=== PATIENT | female | born 1945 | race Caucasian/White ===

== ENCOUNTER 2016-04-03 08:54 | Day surgery (SDC) | payer MEDICARE, OTHER ==
[2016-04-03] MEDS ORDERED: LACTATED RINGERS 1,000 ML IV ONE (09:36)
[2016-04-03] MEDS ORDERED: BUPIVACAINE 0.25% PF 30 ML VIAL SUBQ ONE (10:30)
[2016-04-03] MEDS ORDERED: LIDOCAINE 1%-EPI 1:100000 20 ML MDV SUBQ ONE (10:31)
[2016-04-03] MEDS ORDERED: methylPREDNISolone ACETATE 80 MG/ML VIAL IM ONE (10:32)
[2016-04-03] MEDS ORDERED: MIDAZOLAM 2 MG/2 ML VIAL IVP ONE (10:35)
[2016-04-03] MEDS ORDERED: PROPOFOL 200 MG/20 ML VIAL IVP ONE (10:35)
[2016-04-03] MEDS ORDERED: LIDOCAINE-MPF 2% 5 ML VIAL IM ONE (10:35)
== END 2016-04-03 08:55 | disposition home or self-care (01) ==
PROC: 3E0U33Z Introduction of Anti-inflammatory into Joints, Percutaneous Approach (ICD-10-PCS; 2016-04-03)
PROC: 3E0U3BZ Introduction of Anesthetic Agent into Joints, Percutaneous Approach (ICD-10-PCS; 2016-04-03)
PROC: 01N50ZZ Release Median Nerve, Open Approach (ICD-10-PCS; principal; 2016-04-03 10:00)
DX: G56.02 Carpal tunnel syndrome, left upper limb (principal); M19.132 Post-traumatic osteoarthritis, left wrist; S62.102S Fracture of unspecified carpal bone, left wrist, sequela; X58.XXXS Exposure to other specified factors, sequela; F17.200 Nicotine dependence, unspecified, uncomplicated; J44.9 Chronic obstructive pulmonary disease, unspecified; I10 Essential (primary) hypertension
CPT/HCPCS: 20605; 64721; J7120

== ENCOUNTER 2016-12-17 08:00 | Outpatient (CLI) | payer MEDICARE, OTHER | END 2016-12-17 08:01 | disposition home or self-care (01) | LOC: LAB.WCP 08:00 | PROVIDERS: ATTEND Family Medicine | DX: M79.674 Pain in right toe(s) (principal) | CPT/HCPCS: 87070; 87205 ==

== ENCOUNTER 2016-12-20 15:21 | Outpatient (CLI) | payer MEDICARE, OTHER ==
[2016-12-20 13:17] LABS: BASOPHILS # (AUTO) 0.1 10^3/uL (0.0-0.1); BASOPHILS % (AUTO) 0.9 %; EOSINOPHILS # (AUTO) 0.3 10^3/uL (0.0-0.7); EOSINOPHILS % (AUTO) 3.9 %; HCT - HEMATOCRIT 45.8 % (37.0-47.0); HGB - HEMOGLOBIN 15.3 g/dL (12.0-16.0); LYMPHOCYTES % (AUTO) 29.2 %; MEAN CORPUSCULAR HEMOGLOBIN 30.3 pg (27.0-31.0); MEAN CORPUSCULAR HGB CONC 33.5 g/dL (32.0-36.0); MEAN CORPUSCULAR VOLUME 90.3 fL (81.0-99.0); MEAN PLATELET VOLUME 8.3 fL (7.9-10.8); MONOCYTES # (AUTO) 0.4 10^3/uL (0.0-1.0); MONOCYTES % (AUTO) 5.9 %; NEUTROPHILS # (AUTO) 4.2 10^3/uL (1.5-6.6); NEUTROPHILS % (AUTO) 60.1 %; NUCLEATED RED BLOOD CELLS AUTO 0.1 /100WBC; RED BLOOD COUNT 5.07 10^6/uL (4.20-5.40); RED CELL DISTRIBUTION WIDTH 14.5 % (12.0-15.0)
[2016-12-20 20:11] LABS: ALBUMIN/GLOBULIN RATIO 1.1 (1.0-2.2); BILIRUBIN,TOTAL 0.4 mg/dL (0.2-1.0); CALCIUM 9.3 mg/dL (8.5-10.3); POTASSIUM 4.6 mmol/L (3.5-5.0); TOTAL PROTEIN 7.7 g/dL (6.7-8.2)
== END 2016-12-20 15:22 | disposition home or self-care (01) ==
LOC: LAB.WCP 15:21
PROVIDERS: ATTEND Family Medicine
DX: E87.1 Hypo-osmolality and hyponatremia (principal); I10 Essential (primary) hypertension
CPT/HCPCS: 36415; 80053; 85025

== ENCOUNTER → 2016-12-28 | Outpatient (CLI) | payer MEDICARE, OTHER | LOC: LAB.WCP 09:30 | PROVIDERS: ATTEND Family Medicine | DX: A49.02 Methicillin resistant Staphylococcus aureus infection, unspecified site (principal); M79.674 Pain in right toe(s) | CPT/HCPCS: 87081 ==

== ENCOUNTER 2017-09-24 10:30 | Outpatient (CLI) | payer MEDICARE, OTHER | END 2017-09-24 10:31 | disposition home or self-care (01) | LOC: LAB.WCP 10:30 | PROVIDERS: ATTEND Family Medicine | DX: R04.2 Hemoptysis (principal) | CPT/HCPCS: 81599; 87070; 87205 ==

== ENCOUNTER 2017-09-25 10:46 | Outpatient (CLI) | payer MEDICARE, OTHER ==
[2017-09-25] MEDS ORDERED: IOPAMIDOL-300 100 ML VIAL ONE (11:08)
[2017-09-25] MEDS ORDERED: IOPAMIDOL-300 100 ML VIAL IVP ONE (11:30)
--- NOTE | 2017-09-25 15:28 | CT Report ---
Procedure Date: 09/25/2017 Accession Number: [id number] / [id number] Procedure: CT - Chest W/ CPT Code: FULL RESULT: EXAM: Chest W/ DATE: 09/25/2017 11:44 AM CLINICAL HISTORY: HEMOPTYSIS COMPARISON: None. TECHNIQUE: Routine helical CT imaging was performed through the chest. IV contrast: 80 mL Isovue 300 Reconstructions: Coronal and sagittal. In accordance with CT protocol optimization, one or more of the following dose reduction techniques were utilized for this exam: automated exposure control, adjustment of mA and/or KV based on patient size, or use of iterative reconstructive technique. FINDINGS: Lungs/Pleura: Lungs demonstrate advanced bilateral emphysematous changes. In the right lower lobe there is a 1.9 x 1.7 x 2.2 cm suspicious lung nodule with a component of arterial phase enhancement concerning for vascular involvement. There is no pleural effusion. Mediastinum: Prominent subcarinal and aortopulmonary window lymph nodes which do not meet pathologic size criteria. Coronary calcification. Cardiac chambers are within normal limits. Bones: Unremarkable. Visualized Abdomen: Unremarkable. Other: None. IMPRESSION: A partially vascular lung nodule in the right lower lobe with surrounding advanced emphysematous changes is suspicious for malignancy. This finding is likely related to the hemoptysis. Surgical referral is recommended. If the patient is not a candidate for resection or prior definitive tissue diagnosis is desired, consideration should be given to potential same time availability of bronchial artery embolization given high procedural risk for bleeding and pneumothorax in this lesion. RADIA
== END 2017-09-25 10:47 | disposition home or self-care (01) ==
LOC: DI 10:46
PROVIDERS: ATTEND Family Medicine
DX: R91.1 Solitary pulmonary nodule (principal); J43.9 Emphysema, unspecified
CPT/HCPCS: 71260; Q9967

== ENCOUNTER 2017-10-26 09:15 | Outpatient (CLI) | payer MEDICARE, OTHER ==
[2017-10-26] MEDS ORDERED: ALBUTEROL NEB 2.5 MG/3 ML INH ONE (09:30)
== END 2017-10-26 09:16 | disposition home or self-care (01) ==
LOC: RT 09:15
PROVIDERS: ATTEND Surgery
DX: R91.1 Solitary pulmonary nodule (principal); J43.1 Panlobular emphysema
CPT/HCPCS: 94060; 94729

== ENCOUNTER 2017-12-25 13:11 | Day surgery (SDC) | payer MEDICARE, OTHER ==
--- NOTE | 2017-12-25 13:23 | ANESTHESIA ---
Pre-Anesthesia VS, & Labs - Is Patient ?: No <Tyrese Peralta - Last Filed: 12/25/17 14:06> - NPO >8 hours - Is Patient ?: No <Annemarie Anthony - Last Filed: 12/25/17 15:01> - Diagnosis dysphagia, globus, GERD (Tyrese Peralta) dysphagia, globus, GERD (Annemarie Anthony) - Procedure EGD (Tyrese Peralta) EGD (Annemarie Anthony) Vital Signs: Temp Pulse Resp BP Pulse Ox 36.8 C 79 18 155/73 H 91 L 12/25/17 13:42 12/25/17 13:42 12/25/17 13:42 12/25/17 13:42 12/25/17 13:42 Height 5 ft 3 in Weight (kg) 74 kg Body Mass Index 26.6 Home Medications and Allergies <Tyrese Peralta - Last Filed: 12/25/17 14:06> <Annemarie Anthony - Last Filed: 12/25/17 15:01> Home Medications: Ambulatory Orders Omeprazole Magnesium [Prilosec] 10 mg PO DAILY 12/24/17 Umeclidinium [place] [Incruse Ellipta] 1 puffs PO DAILY 12/24/17 Omeprazole Magnesium [Prilosec] 10 mg PO DAILY 12/24/17 Umeclidinium [place] [Incruse Ellipta] 1 puffs PO DAILY 12/24/17 Allergies/Adverse Reactions: Allergies Allergy/AdvReac Type Severity Reaction Status Date / Time celecoxib [From Celebrex] AdvReac Severe Nausea Verified 05/09/15 03:24 felodipine AdvReac Severe Jittery Verified 05/09/15 03:24 [place] Allergy Severe Anaphylaxis Uncoded 05/09/15 03:24 Antihistamines AdvReac Severe Jittery Uncoded 05/09/15 03:24 Anes History & Medical History - Medical History Cardiovascular: reports: Hypertension Pulmonary: reports: COPD Gastrointestinal: reports: None, GERD Urinary: reports: Incontinence Musculoskeletal: reports: Osteoarthritis Endocrine/Autoimmune: reports: None Blood Disorders: reports: None Skin: reports: None Smoking Status: Current every day smoker - Surgical History General: Appendectomy Eyes Ears Nose Throat (EENT): Tonsil/Adenoidectomy Gynecologic: section, Hysterectomy Orthopedic: Shoulder arthroplasty <Tyrese Peralta P - Last Filed: 12/25/17 14:06> - Anesthetic History Anesthesia Complications: reports: No previous complications <Annemarie Anthony E - Last Filed: 12/25/17 15:01> Exam General: Alert Dental: Dentures full Upper, Dentures full Lower Mouth Opening: Greater than 4 Fingerbreadths Mallampati classification: II Respiratory: Rhonchi (clears with cough) Cardiovascular: Regular rate, Normal S1, Normal S2 Mental/Cognitive Status: Alert/Oriented X3 <Annemarie Anthony E - Last Filed: 12/25/17 15:01> Plan Anesthesia Type: MAC Consent for Procedure(s) Verified and Reviewed: No Code Status: Attempt Resuscitation ASA classification: 3-Severe systemic disease Is this case an emergency?: No <Annemarie Anthony E - Last Filed: 12/25/17 15:01>
[2017-12-25] MEDS ORDERED: LACTATED RINGERS 1,000 ML IV ONE (13:41)
[2017-12-25 16:30] VITALS: BP 134/76
== END 2017-12-25 13:12 | disposition home or self-care (01) ==
LOC: SDS 13:11
PROVIDERS: ATTEND Internal Medicine
PROC: 0DJ08ZZ Inspection of Upper Intestinal Tract, Via Natural or Artificial Opening Endoscopic (ICD-10-PCS; principal; 2017-12-25 14:30)
DX: R13.14 Dysphagia, pharyngoesophageal phase (principal); K29.70 Gastritis, unspecified, without bleeding; K21.9 Gastro-esophageal reflux disease without esophagitis; I10 Essential (primary) hypertension; J44.9 Chronic obstructive pulmonary disease, unspecified; F17.200 Nicotine dependence, unspecified, uncomplicated; K22.8 Other specified diseases of esophagus; Z79.899 Other long term (current) drug therapy
CPT/HCPCS: 43235; J7120

== ENCOUNTER 2019-01-02 08:00 | Outpatient (CLI) | payer MEDICARE, OTHER ==
[2019-01-02 12:16] LABS: BASOPHILS # (AUTO) 0.1 10^3/uL (0.0-0.1); BASOPHILS % (AUTO) 0.7 %; EOSINOPHILS # (AUTO) 0.3 10^3/uL (0.0-0.7); EOSINOPHILS % (AUTO) 3.4 %; HGB - HEMOGLOBIN 15.1 g/dL (12.0-16.0); LYMPHOCYTES # (AUTO) 2.1 10^3/uL (1.5-3.5); LYMPHOCYTES % (AUTO) 27.9 %; MEAN CORPUSCULAR HEMOGLOBIN 28.9 pg (27.0-31.0); MEAN CORPUSCULAR HGB CONC 31.2 g/dL (32.0-36.0); MEAN CORPUSCULAR VOLUME 92.5 fL (81.0-99.0); MEAN PLATELET VOLUME 9.9 fL (7.9-10.8); MONOCYTES # (AUTO) 0.4 10^3/uL (0.0-1.0); MONOCYTES % (AUTO) 5.7 %; NEUTROPHILS # (AUTO) 4.6 10^3/uL (1.5-6.6); PLT - PLATELET COUNT 375 10^3/uL (130-450); RED BLOOD COUNT 5.23 10^6/uL (4.20-5.40); WHITE BLOOD COUNT 7.4 x10^3/uL (4.8-10.8)
[2019-01-02 12:25] LABS: ALBUMIN 4.1 g/dL (3.2-5.5); BILIRUBIN,TOTAL 0.8 mg/dL (0.2-1.0); CALCIUM 9.7 mg/dL (8.5-10.3); CREATININE 0.9 mg/dL (0.4-1.0); TOTAL PROTEIN 8.2 g/dL (6.7-8.2)
== END 2019-01-02 23:59 | disposition home or self-care (01) ==
LOC: LAB.WCP 08:00
PROVIDERS: ATTEND Family Medicine
DX: Z72.0 Tobacco use (principal); I10 Essential (primary) hypertension
CPT/HCPCS: 36415; 80053; 85025

== ENCOUNTER 2019-06-18 20:31 | Outpatient (CLI) | payer MEDICARE, OTHER | END 2019-06-18 23:59 | disposition critical access hospital (66) | LOC: EMS 20:31 | PROVIDERS: ATTEND Surgery | DX: R10.13 Epigastric pain (principal); R11.0 Nausea | CPT/HCPCS: A0425; A0427 ==

== ENCOUNTER 2019-06-18 20:49 | Emergency (ER) | payer MEDICARE, OTHER ==
--- NOTE | 2019-06-18 20:47 | ED Physician Documentation ---
History of Present Illness - Stated complaint Stated Complaint: ABD PAIN - History obtained from History obtained from: Patient (the patient is a 73 y/o f brought in by ems for abd pain, ems gave 100 mcg of fentanyl to the patient prior to my evaluation. the patient was having epigastric pain and called 911. she has had a previous appendectomy and 3 c sections. she denies any hx of mi/stroke/pe/dvt. she does have a hx of copd but is not on oxygen. denies dysuria, diarrhea or co nstipation. had 1 episode of vomiting earlier today.) Review of Systems Ten Systems: 10 systems reviewed and negative Constitutional: reports: Reviewed and negative Eyes: reports: Reviewed and negative Ears: reports: Reviewed and negative Nose: reports: Reviewed and negative Throat: reports: Reviewed and negative Cardiac: reports: Reviewed and negative Respiratory: reports: Reviewed and negative GI: reports: Abdominal Pain : reports: Reviewed and negative Skin: reports: Reviewed and negative Musculoskeletal: reports: Reviewed and negative Neurologic: reports: Reviewed and negative Psychiatric: reports: Reviewed and negative Endocrine: reports: Reviewed and negative Immunocompromised: reports: Reviewed and negative PD PAST MEDICAL HISTORY - Present Medications Home Medications: Ambulatory Orders Medication Instructions Recorded Confirmed Omeprazole Magnesium [Prilosec] 10 mg PO DAILY 12/24/17 12/25/17 Umeclidinium [place] [Incruse 1 puffs PO DAILY 12/24/17 12/25/17 Ellipta] - Allergies Allergies/Adverse Reactions: Allergies Allergy/AdvReac Type Severity Reaction Status Date / Time celecoxib [From Celebrex] AdvReac Severe Nausea Verified 06/18/19 20:55 felodipine AdvReac Severe Jittery Verified 06/18/19 20:55 [place] Allergy Severe Anaphylaxis Uncoded 05/09/15 03:24 Antihistamines AdvReac Severe Jittery Uncoded 05/09/15 03:24 PD ED PE NORMAL - Vitals Vital signs reviewed: Yes - General General: Alert and oriented X 3, No acute distress, Well developed/nourished - HEENT HEENT: Atraumatic, PERRL, Moist mucous membranes, Pharynx benign - Neck Neck: Supple, no meningeal sign - Cardiac Cardiac: RRR, No murmur, No gallop, Strong equal pulses - Respiratory Respiratory: No respiratory distress, Clear bilaterally - Abdomen Abdomen: Soft, Non distended, Other (The abdomen soft, there is no midline abdominal pulsatile mass she has diminished bowel sounds throughout. There is no guarding, no rebounding no hepatosplenomegaly no CVA tenderness she has a positive Galarza sign negative psoas negative Rovsing's negative McBurney's point.No CVA tenderness.) - Female Female : Deferred - Rectal Rectal: Deferred - Back Back: No CVA TTP, No spinal TTP - Derm Derm: Normal color, Warm and dry, No rash - Extremities Extremities: No deformity, No tenderness to palpate, Normal ROM s pain, No edema, No calf tenderness / cord - Neuro Neuro: Alert and oriented X 3, director communications 2-12 intact, No motor deficit, No sensory deficit, Normal speech - Psych Psych: Normal mood, Normal affect Results - Vitals Vitals: Vital Signs - 24 hr 06/18/19 06/18/19 06/18/19 20:53 23:20 23:31 Temperature 36.6 C Heart Rate 70 71 70 Respiratory 17 17 Rate Blood Pressure 154/77 H O2 Saturation 92 91 L 06/19/19 00:59 Temperature 36.6 C Heart Rate 71 Respiratory 14 Rate Blood Pressure 140/71 H O2 Saturation 89 L Oxygen O2 Source [] Room air O2 Source Nasal cannula - EKG (time done) 21:13 Rate: Other (no stemi) - Labs Labs: Laboratory Tests 06/18/19 06/18/19 06/18/19 21:10 21:10 21:10 WBC RBC Hgb Hct MCV MCH MCHC RDW Plt Count MPV Neut # (Auto) Lymph # (Auto) [place] # (Auto) Eos # (Auto) Baso # (Auto) Absolute Nucleated RBC Nucleated RBC % PT 12.3 INR 1.1 APTT 35.0 H Sodium Potassium Chloride Carbon Dioxide Anion Gap BUN Creatinine Estimated GFR (MDRD) Glucose Lactic Acid Calcium Total Bilirubin Direct Bilirubin AST ALT Alkaline Phosphatase Total Creatine Kinase Troponin I High Sens 4.6 B-Natriuretic Peptide 70 Total Protein Albumin Globulin Lipase Urine Color Urine Clarity Urine pH Ur Specific [place] Urine Protein Urine Glucose (UA) Urine Ketones Urine Occult Blood Urine Nitrite Urine Bilirubin Urine Urobilinogen Ur Leukocyte Esterase Ur Microscopic Review Urine Culture Comments 06/18/19 06/18/19 06/18/19 21:10 21:18 21:18 WBC 11.9 H RBC 5.00 Hgb 15.1 Hct 45.9 MCV 91.8 MCH 30.2 MCHC 32.9 RDW 14.1 Plt Count 310 MPV 9.4 Neut # (Auto) 9.3 H Lymph # (Auto) 1.6 [place] # (Auto) 0.5 Eos # (Auto) 0.3 Baso # (Auto) 0.1 Absolute Nucleated RBC 0.00 Nucleated RBC % 0.0 PT INR APTT Sodium 133 L Potassium 3.8 Chloride 100 L Carbon Dioxide 23 Anion Gap 10.0 BUN 22 H Creatinine 0.7 Estimated GFR (MDRD) 82 L Glucose 125 H Lactic Acid 0.8 Calcium 8.9 Total Bilirubin 0.4 Direct Bilirubin 0.1 AST 21 ALT 16 Alkaline Phosphatase 76 Total Creatine Kinase 78 Troponin I High Sens B-Natriuretic Peptide Total Protein 7.0 Albumin 3.7 Globulin 3.3 Lipase 33 Urine Color Urine Clarity Urine pH Ur Specific [place] Urine Protein Urine Glucose (UA) Urine Ketones Urine Occult Blood Urine Nitrite Urine Bilirubin Urine Urobilinogen Ur Leukocyte Esterase Ur Microscopic Review Urine Culture Comments 06/18/19 22:21 WBC RBC Hgb Hct MCV MCH MCHC RDW Plt Count MPV Neut # (Auto) Lymph # (Auto) [place] # (Auto) Eos # (Auto) Baso # (Auto) Absolute Nucleated RBC Nucleated RBC % PT INR APTT Sodium Potassium Chloride Carbon Dioxide Anion Gap BUN Creatinine Estimated GFR (MDRD) Glucose Lactic Acid Calcium Total Bilirubin Direct Bilirubin AST ALT Alkaline Phosphatase Total Creatine Kinase Troponin I High Sens B-Natriuretic Peptide Total Protein Albumin Globulin Lipase Urine Color YELLOW Urine Clarity CLEAR Urine pH 7.5 Ur Specific [place] 1.010 Urine Protein NEGATIVE Urine Glucose (UA) NEGATIVE Urine Ketones NEGATIVE Urine Occult Blood NEGATIVE Urine Nitrite NEGATIVE Urine Bilirubin NEGATIVE Urine Urobilinogen 0.2 (NORMAL) Ur Leukocyte Esterase NEGATIVE Ur Microscopic Review NOT INDICATED Urine Culture Comments NOT INDICATED PD MEDICAL DECISION MAKING - ED course Complexity details: re-evaluated patient (00:57 Patient reexamined and reevaluated, she is pain-free now patient is requesting to be discharged home she does have good follow-up with her primary care provider her work-up shows cholelithiasis there is no fever no significant leukocytosis no elevatedLiver function test she is pain-free now she has good follow-up plan is to follow-up with her PCP provider today. Imaging and work-up shows cholelithiasis there is no signs of acute cystitis the patient's pain pain-free now she is afebrilePatient is requesting to be discharged home at this time she does have good follow-up today with her primary care provider.), considered differential (Cholecystitis, cholelithiasis, pancreatitis, perforated peptic ulcer, peptic ulcer disease, [place], ACS, volvulus, bowel obstruction, aneurysm) Departure - Departure Disposition: 01 Home, Self Care Clinical Impression: Cholelithiasis Qualifiers: Cholelithiasis location: other site Biliary obstruction: without biliary obstruction Qualified Code(s): K80.80 - Other cholelithiasis without obstruction COPD (chronic obstructive pulmonary disease) Qualifiers: COPD type: unspecified COPD Qualified Code(s): J44.9 - Chronic obstructive pulmonary disease, unspecified Condition: Stable Instructions: Gallstones Follow-Up: Bradley Ferrari MD [Primary Care Provider] - 06/19/19 Comments: call your pcp today to schedule a follow up. Discharge Date/Time: 06/19/19 01:15
[2019-06-18] MEDS ORDERED: IOVERSOL 320 100 ML VIAL IVP ONE (21:14)
[2019-06-18] MEDS: SODIUM CHLORIDE 0.9% 1,000 ML IV ONE (21:22)
[2019-06-18 21:24] LABS: BASOPHILS # (AUTO) 0.1 10^3/uL (0.0-0.1); BASOPHILS % (AUTO) 0.6 %; EOSINOPHILS # (AUTO) 0.3 10^3/uL (0.0-0.7); EOSINOPHILS % (AUTO) 2.4 %; HGB - HEMOGLOBIN 15.1 g/dL (12.0-16.0); LYMPHOCYTES # (AUTO) 1.6 10^3/uL (1.5-3.5); LYMPHOCYTES % (AUTO) 13.8 %; MEAN CORPUSCULAR HEMOGLOBIN 30.2 pg (27.0-31.0); MEAN CORPUSCULAR HGB CONC 32.9 g/dL (32.0-36.0); MEAN CORPUSCULAR VOLUME 91.8 fL (81.0-99.0); MEAN PLATELET VOLUME 9.4 fL (7.9-10.8); MONOCYTES # (AUTO) 0.5 10^3/uL (0.0-1.0); MONOCYTES % (AUTO) 4.3 %; NEUTROPHILS # (AUTO) 9.3 10^3/uL (1.5-6.6); NEUTROPHILS % (AUTO) 78.6 %; PLT - PLATELET COUNT 310 10^3/uL (130-450); RED CELL DISTRIBUTION WIDTH 14.1 % (12.0-15.0); WHITE BLOOD COUNT 11.9 x10^3/uL (4.8-10.8)
[2019-06-18 21:29] LABS: INR 1.1 (0.8-1.2); PT - PROTHROMBIN TIME 12.3 secs (9.9-12.6)
[2019-06-18] MEDS: ONDANSETRON 4 MG/2 ML VIAL IVP STA ×2 (21:32→23:18)
[2019-06-18 21:39] LABS: ALBUMIN 3.7 g/dL (3.2-5.5); BILIRUBIN,DIRECT 0.1 mg/dL (0.1-0.5); BILIRUBIN,TOTAL 0.4 mg/dL (0.2-1.0); CALCIUM 8.9 mg/dL (8.5-10.3); CREATININE 0.7 mg/dL (0.4-1.0)
[2019-06-18] MEDS: IOVERSOL 320 100 ML VIAL IVP ONE (22:06)
--- NOTE | 2019-06-18 22:09 | XRAY Report ---
Reason: cp Procedure Date: 06/18/2019 Accession Number: [id number] / [id number] Procedure: XR - Chest 1 View X-Ray CPT Code: 71277 Final Report FULL RESULT: EXAM: CHEST RADIOGRAPHY EXAM DATE: 06/18/2019 09:31 PM. CLINICAL HISTORY: Chest pain. COMPARISON: CHEST 2 VIEW PA/LAT 09/24/2017 9:21 AM. TECHNIQUE: 1 view. FINDINGS: Lungs/Pleura: Chronic interstitial opacities, suggestive of chronic interstitial lung disease. No focal opacities evident. No pleural effusion. No pneumothorax. Mediastinum: Within exam limitations, the cardiomediastinal contour is normal. Other: None. IMPRESSION: Chronic interstitial opacities, suggestive of chronic interstitial lung disease. Mild superimposed chronic pulmonary edema to be considered in appropriate setting. RADIA
[2019-06-18 22:37] LABS: BILIRUBIN,URINE NEGATIVE (NEGATIVE); CLARITY,URINE CLEAR (CLEAR); GLUCOSE, URINE (UA) NEGATIVE (NEGATIVE); KETONES,URINE (UA) NEGATIVE (NEGATIVE); LEUKOCYTE ESTERASE, URINE NEGATIVE (NEGATIVE); NITRITE,URINE NEGATIVE (NEGATIVE); OCCULT BLOOD,URINE NEGATIVE (NEGATIVE); PH,URINE 7.5 PH (5.0-7.5); PROTEIN,URINE NEGATIVE (NEGATIVE); UROBILINOGEN,URINE 0.2 (NORMAL) E.U./dL (NORMAL)
--- NOTE | 2019-06-18 22:57 | CT Report ---
Reason: abd pain Procedure Date: 06/18/2019 Accession Number: [id number] / [id number] Procedure: CT - Abdomen/Pelvis W CPT Code: Addended Final Report FULL RESULT: EXAM: CT ABDOMEN AND PELVIS EXAM DATE: 06/18/2019 10:07 PM. CLINICAL HISTORY: Abdomen pain. COMPARISONS: CHEST W/ 09/25/2017 11:30 AM. TECHNIQUE: Routine helical CT imaging was performed through the abdomen and pelvis. IV contrast: Yes . Enteric contrast: No . Reconstructions: Coronal and sagittal. In accordance with CT protocol optimization, one or more of the following dose reduction techniques were utilized for this exam: automated exposure control, adjustment of mA and/or KV based on patient size, or use of iterative reconstructive technique. FINDINGS: Lung Bases: Bibasilar emphysema and fibrosis. Liver: Unremarkable. No suspicious masses. Gallbladder/Bile Ducts: Distended thick-walled gallbladder with possible cystic duct stone measuring 13 mm on image 36 series 4. Minimal pericholecystic edema suspected. Spleen: Unremarkable. Pancreas: Unremarkable. Adrenal Glands: Unremarkable. Kidneys: Unremarkable. No suspicious masses or hydronephrosis. Peritoneal Cavity/Bowel: No bowel obstruction or inflammatory process seen. No free air or significant free fluid. No masses or adenopathy. The appendix is normal. No excessive stool burden. Pelvic Organs: Post hysterectomy with no adnexal masses seen. The bladder appears within normal limits. Vasculature: Severe atherosclerotic disease of the aorta and branches. 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 No aneurysm seen. Bones: No significant abnormality. Other: None. IMPRESSION: 1. Findings concerning for early cholecystitis. If clinical situation is equivocal, CT could be considered. 2. Post hysterectomy. 3. 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 4. Emphysema and pulmonary fibrosis. [facility] ADDENDUM: 06/18/19 23:19 Correction: 1. Findings concerning for early cholecystitis. If clinical situation is equivocal, ultrasound could be considered.
[2019-06-18] MEDS: MORPHINE 2 MG/ML CARPUJECT IVP STA (23:17)
--- NOTE | 2019-06-19 00:49 | Ultrasound Report ---
Reason: RUQ PAIN Procedure Date: 06/18/2019 Accession Number: [id number] / [id number] Procedure: US - Abdomen Limited CPT Code: Final Report FULL RESULT: EXAM: ABDOMEN ULTRASOUND LIMITED, RUQ EXAM DATE: 06/18/2019 11:59 PM. CLINICAL HISTORY: RUQ PAIN. COMPARISON: None. TECHNIQUE: Real-time scanning was performed with static images obtained. FINDINGS: Liver: The hepatic echotexture is coarse. Evaluation is difficult secondary to patient's body habitus. 16.7 cm. Main portal vein flow: Hepatopetal. Gallbladder: Gallbladder wall is thickened at 6 mm. Nontender. Multiple tiny mobile gallstones. Biliary System: CBD measures 7 mm. No intrahepatic or extrahepatic ductal dilatation. Other: Right kidney measures 8.9 cm in length. Prominent pancreatic duct at 4 mm. IMPRESSION: 1. Cholelithiasis. 2. Prominent pancreatic duct at 4 mm. RADIA
[2019-06-19 01:00] VITALS: BP 140/71
== END 2019-06-19 01:15 | disposition home or self-care (01) ==
LOC: EDUNIT# → ED 20:49
DX: K80.20 Calculus of gallbladder without cholecystitis without obstruction (principal); J44.9 Chronic obstructive pulmonary disease, unspecified
CPT/HCPCS: 36415; 71045; 74177; 76705; 80048; 80076; 81003; 82550; 83605; 83690; 83880; 84484; 85025; 85610; 85730; 93005; 96361; 96374; 96375; 96376; 99284; Q9967; 81001; 87086

== ENCOUNTER 2020-01-17 16:02 | Outpatient (CLI) | payer MEDICARE, OTHER | END 2020-01-17 16:03 | disposition critical access hospital (66) | LOC: EMS 16:02 | PROVIDERS: ATTEND Surgery | DX: R10.11 Right upper quadrant pain (principal); R11.0 Nausea | CPT/HCPCS: A0425; A0427 ==

== ENCOUNTER 2020-01-17 16:23 | Emergency (ER) | payer MEDICARE, OTHER ==
[2020-01-17 16:49] LABS: BASOPHILS # (AUTO) 0.1 10^3/uL (0.0-0.1); BASOPHILS % (AUTO) 0.4 %; EOSINOPHILS # (AUTO) 0.2 10^3/uL (0.0-0.7); EOSINOPHILS % (AUTO) 1.7 %; HGB - HEMOGLOBIN 14.2 g/dL (12.0-16.0); LYMPHOCYTES # (AUTO) 1.4 10^3/uL (1.5-3.5); LYMPHOCYTES % (AUTO) 12.4 %; MEAN CORPUSCULAR HEMOGLOBIN 30.3 pg (27.0-31.0); MEAN CORPUSCULAR HGB CONC 32.8 g/dL (32.0-36.0); MEAN CORPUSCULAR VOLUME 92.5 fL (81.0-99.0); MONOCYTES # (AUTO) 0.6 10^3/uL (0.0-1.0); MONOCYTES % (AUTO) 5.2 %; NEUTROPHILS % (AUTO) 79.9 %; PLT - PLATELET COUNT 321 10^3/uL (130-450); RED BLOOD COUNT 4.68 10^6/uL (4.20-5.40); RED CELL DISTRIBUTION WIDTH 13.7 % (12.0-15.0); WHITE BLOOD COUNT 11.2 x10^3/uL (4.8-10.8)
[2020-01-17 16:54] VITALS: BP 102/54
--- NOTE | 2020-01-17 17:03 | ED Physician Documentation ---
PD HPI ABD PAIN - Stated complaint Stated Complaint: ABD PX - Chief complaint Chief Complaint: Abd Pain - History obtained from History obtained from: Patient - History of Present Illness Timing - onset: Today Timing - duration: Hours (5) Timing - details: Abrupt onset Pain level max: 9 Pain level now: 3 Quality: Aching, Pain Location: RUQ Radiation: No: Chest, , Lower back, Left flank, Left shoulder, Right flank, Right shoulder, Upper back Similar symptoms before: Has not had sx before Recently seen: Not recently seen - Additional information Additional information: 74-year-old female presents to the emergency department with abdominal pain. Right upper quadrant. She states that it started after eating fried chicken today. Known history of cholelithiasis. No vomiting. No fevers. Worse with eating and drinking, nothing makes it better Review of Systems Constitutional: denies: Fever, Chills Cardiac: denies: Chest pain / pressure Respiratory: denies: Cough GI: denies: Vomiting, Diarrhea : denies: Dysuria Skin: denies: Rash PD PAST MEDICAL HISTORY - Past Medical History Past Medical History: Yes Cardiovascular: Hypertension Respiratory: COPD Neuro: None Endocrine/Autoimmune: None GI: GERD, Cholelithiasis : Incontinence HEENT: None Psych: None Musculoskeletal: Osteoarthritis Derm: None - Past Surgical History Past Surgical History: Yes General: Appendectomy Ortho: Shoulder arthroplasty /[employer]: section, Hysterectomy HEENT: Tonsil/Adenoidectomy - Present Medications Home Medications: Ambulatory Orders Medication Instructions Recorded Confirmed Omeprazole Magnesium [Prilosec] 10 mg PO DAILY 12/24/17 12/25/17 Umeclidinium [place] [Incruse 1 puffs PO DAILY 12/24/17 12/25/17 Ellipta] - Allergies Allergies/Adverse Reactions: Allergies Allergy/AdvReac Type Severity Reaction Status Date / Time celecoxib [From Celebrex] AdvReac Severe Nausea Verified 06/18/19 20:55 felodipine AdvReac Severe Jittery Verified 06/18/19 20:55 [place] Allergy Severe Anaphylaxis Uncoded 05/09/15 03:24 Antihistamines AdvReac Severe Jittery Uncoded 05/09/15 03:24 - Social History Does the pt smoke?: Yes Smoking Status: Current every day smoker Does the pt drink ETOH?: Yes Does the pt have substance abuse?: No - Immunizations Immunizations are current?: Yes - POLST Patient has POLST: No PD ED PE NORMAL - Vitals Vital signs reviewed: Yes - General General: Alert and oriented X 3, No acute distress - HEENT HEENT: Moist mucous membranes - Neck Neck: Supple, no meningeal sign - Cardiac Cardiac: RRR, Strong equal pulses - Respiratory Respiratory: No respiratory distress, Clear bilaterally - Abdomen Abdomen: Soft, Non distended, Other (TTP RUQ, + galarza's sign) - Derm Derm: Warm and dry - Neuro Neuro: Alert and oriented X 3 - Psych Psych: Normal mood, Normal affect Results - Vitals Vitals: Vital Signs - 24 hr 01/17/20 01/17/20 01/17/20 16:25 16:52 16:53 Temperature 36.5 C Heart Rate 63 62 61 Respiratory 18 14 18 Rate Blood Pressure 142/73 H 102/54 L 102/54 L O2 Saturation 93 90 L 90 L Oxygen O2 Source [Without Activity] Room air O2 Source Room air - Labs Labs: Laboratory Tests 01/17/20 01/17/20 16:40 16:40 WBC 11.2 H RBC 4.68 Hgb 14.2 Hct 43.3 MCV 92.5 MCH 30.3 MCHC 32.8 RDW 13.7 Plt Count 321 MPV 9.0 Neut # (Auto) 9.0 H Lymph # (Auto) 1.4 L [place] # (Auto) 0.6 Eos # (Auto) 0.2 Baso # (Auto) 0.1 Absolute Nucleated RBC 0.00 Nucleated RBC % 0.0 Sodium 131 L Potassium 3.8 Chloride 98 L Carbon Dioxide 22 Anion Gap 11.0 BUN 16 Creatinine 0.9 Estimated GFR (MDRD) 62 L Glucose 142 H Calcium 8.9 Total Bilirubin 1.4 H AST 109 H ALT 59 Alkaline Phosphatase 72 Total Protein 7.1 Albumin 3.9 Globulin 3.2 Albumin/Globulin Ratio 1.2 Lipase 1404 H - Rads (name of study) Right upper quadrant ultrasound Radiology: Prelim report reviewed, EMP read contemporaneously, See rad report (Cholelithiasis with mild gallbladder wall thickening of the gallbladder fundus. Negative sonographic Galarza's. Prominent common bile ducts, no choledocholithiasis. Hepatic steatosis.) PD MEDICAL DECISION MAKING - ED course Complexity details: reviewed results, re-evaluated patient, considered differential, d/w patient ED course: 74-year-old female presents to the emergency department with abdominal pain tod ay. Her symptoms fully resolved in the emergency department. No fevers. No chills. Tolerating p.o. without difficulty. Did have a mild elevation of her lipase, possible that she passed a small gallstone causing mild pancreatitis. Her abdomen is soft, nontender nondistended on serial exam. As she is currently asymptomatic and eating without difficulty, we will have her go home and follow- up with her doctor. She will return if she worsens or has recurrent symptoms. Patient counseled regarding signs and symptoms for which I believe and urgent re-evaluation would be necessary. Patient with good understanding of and agreement to plan and is comfortable going home at this time This document was made in part using voice recognition software. While efforts are made to proofread this document, sound alike and grammatical errors may occur. Departure - Departure Disposition: 01 Home, Self Care Clinical Impression: Cholelithiasis Qualifiers: Cholelithiasis location: gallbladder Cholecystitis presence: without cholecystitis Biliary obstruction: without biliary obstruction Qualified Code(s): K80.20 - Calculus of gallbladder without cholecystitis without obstruction Pancreatitis Qualifiers: Chronicity: acute Pancreatitis type: biliary Acute pancreatitis complication: no infection or necrosis Qualified Code(s): K85.10 - Biliary acute pancreatitis without necrosis or infection Condition: Good Instructions: ED Gallstone W Biliary Colic, ED Pancreatitis Follow-Up: Bradley Ferrari MD [Primary Care Provider] - Comments: Return if you worsen. Your doctor may want to refer you to a surgeon to have your gallbladder removed, you should follow a low-fat diet. As your symptoms have completely resolved, we will allow you to go home tonight. Return if your pain worsens, you develop fevers, vomiting or other new or worrisome symptoms. Discharge Date/Time: 01/17/20 18:27
[2020-01-17 17:17] LABS: ALBUMIN 3.9 g/dL (3.2-5.5); ALBUMIN/GLOBULIN RATIO 1.2 (1.0-2.2); BILIRUBIN,TOTAL 1.4 mg/dL (0.2-1.0); CALCIUM 8.9 mg/dL (8.5-10.3); CREATININE 0.9 mg/dL (0.4-1.0); TOTAL PROTEIN 7.1 g/dL (6.7-8.2)
--- NOTE | 2020-01-17 18:31 | Ultrasound Report ---
PROCEDURE: Abdomen Limited INDICATIONS: RUQ abd pain TECHNIQUE: Real-time scanning was performed of the abdominal and retroperitoneal organs, with image documentatio n. COMPARISON: None. FINDINGS: Liver: The liver demonstrates diffusely increased echotexture without focal abnormalities which is c onsistent with chronic hepatocellular disease/hepatic steatosis. Gallbladder: Multiple mobile gallstones. Gallbladder is mildly distended. Gallbladder wall is thicken ed near the fundus measuring approximately 6 mm. No pericholecystic fluid. Sonographic Galarza sign wa s not able to be elicited secondary to patient being on pain medications prior to the examination. Biliary ducts: Intrahepatic bile ducts are non-dilated. Extrahepatic bile duct caliber measures 9 m m. Normal is 6-7 mm or less in diameter, or 10 mm or less post-cholecystectomy. Pancreatic duct jose sures approximately 3 mm. Pancreas: Visualized portions of the pancreas are sonographically normal. Kidneys: Right kidney is normal in size and echotexture. Right kidney measures 9.7 cm long. No hydr onephrosis or nephrolithiasis. No solid masses. IVC: Intrahepatic inferior vena cava is patent. Miscellaneous: No free abdominal fluid. IMPRESSION: 1. Cholelithiasis with mild gallbladder wall thickening near the gallbladder fundus. Unable to elicit sonographic Galarza's at the patient was medicated for pain. Findings may represent cholecystitis. 2. Prominent common bile duct measuring 9 mm in size without evidence for choledocholithiasis. Of not e, the common bile duct was able to be followed down to the pancreatic duct. 3. Diffusely increased hepatic echotexture likely representing hepatic steatosis versus sequela of ch ronic hepatocellular disease. Reviewed by: Angelo Greenwood MD on 01/17/2020 5:[address] [facility] Approved by: Angelo Greenwood MD on 01/17/2020 5:[address] [facility] Station ID: [id number]
== END 2020-01-17 18:27 | disposition home or self-care (01) ==
LOC: EDUNIT# → ED 16:23
DX: K80.20 Calculus of gallbladder without cholecystitis without obstruction (principal); K85.10 Biliary acute pancreatitis without necrosis or infection; K76.0 Fatty (change of) liver, not elsewhere classified; K21.9 Gastro-esophageal reflux disease without esophagitis; I10 Essential (primary) hypertension; F17.200 Nicotine dependence, unspecified, uncomplicated
CPT/HCPCS: 36415; 76705; 80053; 83690; 85025; 99284

== ENCOUNTER 2020-01-27 08:00 | Outpatient (CLI) | payer MEDICARE, OTHER ==
[2020-01-27 12:09] LABS: BASOPHILS # (AUTO) 0.1 10^3/uL (0.0-0.1); BASOPHILS % (AUTO) 0.8 %; EOSINOPHILS # (AUTO) 0.1 10^3/uL (0.0-0.7); EOSINOPHILS % (AUTO) 1.8 %; HGB - HEMOGLOBIN 14.3 g/dL (12.0-16.0); LYMPHOCYTES # (AUTO) 2.1 10^3/uL (1.5-3.5); LYMPHOCYTES % (AUTO) 26.9 %; MEAN CORPUSCULAR HEMOGLOBIN 30.3 pg (27.0-31.0); MEAN CORPUSCULAR HGB CONC 32.4 g/dL (32.0-36.0); MEAN CORPUSCULAR VOLUME 93.4 fL (81.0-99.0); MEAN PLATELET VOLUME 10.1 fL (7.9-10.8); MONOCYTES # (AUTO) 0.4 10^3/uL (0.0-1.0); MONOCYTES % (AUTO) 5.4 %; NEUTROPHILS # (AUTO) 5.1 10^3/uL (1.5-6.6); NEUTROPHILS % (AUTO) 64.8 %; PLT - PLATELET COUNT 414 10^3/uL (130-450); RED BLOOD COUNT 4.72 10^6/uL (4.20-5.40); RED CELL DISTRIBUTION WIDTH 14.1 % (12.0-15.0); WHITE BLOOD COUNT 7.8 x10^3/uL (4.8-10.8)
== END 2020-01-27 23:59 | disposition home or self-care (01) ==
LOC: LAB.WCP 08:00
PROVIDERS: ATTEND Family Medicine
DX: K85.10 Biliary acute pancreatitis without necrosis or infection (principal)
CPT/HCPCS: 36415; 83690; 85025

== ENCOUNTER 2021-01-06 07:07 | Outpatient (CLI) | payer MEDICARE, OTHER ==
--- NOTE | 2021-01-13 10:50 | XRAY Report ---
PROCEDURE: Cervical Spine 2 View INDICATIONS: NECK PAIN TECHNIQUE: 3 view(s) of the cervical spine were acquired. COMPARISON: None. FINDINGS: Bones: No fractures or dislocations to the C7-T1 level. The lateral masses of C1 appear intact on t he odontoid view. No suspicious bony lesions. Spine is in flexion view with reversal of curvature w ith apex at C5. There is grade 1 anterolithesis of C3 on C4, C4 on C5. There is moderate to severe disc space narrowing at C4-5, C5-6, C6-7. Multilevel uncovertebral hypertrophy. Soft tissues: No prevertebral soft tissue swelling. IMPRESSION: Multilevel degenerative changes with exaggerated kyphosis. Reviewed by: Amy Fernández MD on 01/13/2021 10:49 AM PDT Approved by: Amy Fernández MD on 01/13/2021 10:49 AM PDT Station ID: [id number]
== END 2021-01-06 07:08 | disposition home or self-care (01) ==
LOC: DI.N 07:07
PROVIDERS: ATTEND Family Medicine
DX: M43.12 Spondylolisthesis, cervical region (principal); M89.38 Hypertrophy of bone, other site; M50.321 Other cervical disc degeneration at C4-C5 level

== ENCOUNTER 2021-02-10 07:16 | Outpatient (CLI) | payer MEDICARE, OTHER ==
[2021-02-10 13:15] LABS: BASOPHILS # (AUTO) 0.1 10^3/uL (0.0-0.1); BASOPHILS % (AUTO) 0.8 %; EOSINOPHILS # (AUTO) 0.3 10^3/uL (0.0-0.7); EOSINOPHILS % (AUTO) 4.3 %; HCT - HEMATOCRIT 45.2 % (37.0-47.0); HGB - HEMOGLOBIN 14.8 g/dL (12.0-16.0); LYMPHOCYTES % (AUTO) 25.6 %; MEAN CORPUSCULAR HEMOGLOBIN 30.6 pg (27.0-31.0); MEAN CORPUSCULAR HGB CONC 32.7 g/dL (32.0-36.0); MEAN CORPUSCULAR VOLUME 93.6 fL (81.0-99.0); MEAN PLATELET VOLUME 9.7 fL (7.9-10.8); MONOCYTES # (AUTO) 0.4 10^3/uL (0.0-1.0); MONOCYTES % (AUTO) 5.3 %; NEUTROPHILS # (AUTO) 4.9 10^3/uL (1.5-6.6); NEUTROPHILS % (AUTO) 63.6 %; PLT - PLATELET COUNT 354 10^3/uL (130-450); RED BLOOD COUNT 4.83 10^6/uL (4.20-5.40); RED CELL DISTRIBUTION WIDTH 14.1 % (12.0-15.0); WHITE BLOOD COUNT 7.7 x10^3/uL (4.8-10.8)
[2021-02-10 13:56] LABS: ALBUMIN 4.2 g/dL (3.2-5.5); ALBUMIN/GLOBULIN RATIO 1.1 (1.0-2.2); ALKALINE PHOSPHATASE 67 IU/L (42-121); ALT ALANINE AMINOTRANSFERASE 18 IU/L (10-60); AST ASPARTATE AMINOTRANSFERASE 26 IU/L (10-42); BILIRUBIN,TOTAL 0.6 mg/dL (0.2-1.0); BUN - BLOOD UREA NITROGEN 17 mg/dL (6-20); CALCIUM 9.3 mg/dL (8.5-10.3); CARBON DIOXIDE - CO2 26 mmol/L (21-32); CHLORIDE 96 mmol/L (101-111); CHOL/HDL RATIO 4.3 (<4.4); CHOLESTEROL 212 mg/dL; CREATININE 0.7 mg/dL (0.4-1.0); GFR - MDRD 82 (>89); GLUCOSE 88 mg/dL (70-100); HDL CHOLESTEROL 49 mg/dL; LDL CHOLESTEROL,CALCULATED 148 mg/dL; SODIUM 131 mmol/L (135-145); TRIGLYCERIDES 73 mg/dL; VLDL CHOLESTEROL 15 mg/dL
== END 2021-02-10 23:59 | disposition home or self-care (01) ==
LOC: LAB.WCP 07:16
PROVIDERS: ATTEND Family Medicine
DX: K75.81 Nonalcoholic steatohepatitis (NASH) (principal); E87.1 Hypo-osmolality and hyponatremia; I10 Essential (primary) hypertension
CPT/HCPCS: 36415; 80053; 80061; 83721; 84443; 85025

== ENCOUNTER 2021-02-14 09:52 | Outpatient (CLI) | payer MEDICARE, OTHER ==
--- NOTE | 2021-02-14 11:50 | MRI Report ---
PROCEDURE: Cervical Spine W/O INDICATIONS: NECK PAIN TECHNIQUE: Noncontrast sagittal T1 spin echo and T2 fast spin echo, sagittal STIR, foraminal oblique sagittal T2 fast spin echo, and axial gradient echo and T2 fast spin echo through the cervical spine. COMPARISON: Correlation is made with prior plain film, 01/06/2021. FINDINGS: Image quality: Motion artifact is noted. Alignment and Curvature: Minimal convex cervical thoracic sclerotic curvature can be seen on coronal images. There is reversal of the normal cervical lordosis, with the apex at the C5-C6 level. Grade 1 anterolisthesis is seen at C5-C6. Bone Marrow: Marrow demonstrates normal overall signal. Spinal Cord: Visualized spinal cord has normal size and signal. No cerebellar tonsillar herniation. Paraspinous Soft Tissues: No paravertebral masses. Prevertebral soft tissues are normal in thicknes s. C2-C3: No significant abnormality is seen. C3-C4: The disc height is well-preserved. There is loss of disc signal seen. Mild to moderate disc osteophyte complex is seen. There is moderate to prominent right-sided and moderate left-sided facet hypertrophy seen. There is moderate to severe bilateral neuroforaminal narrowing seen, right worse th an left. Mild central canal narrowing is seen. C4-C5: Moderate to severe loss of disc height and disc signal can be seen. At least moderate disc os teophyte complex is seen, which is eccentric to the right. There is a focal disc osteophyte protrusio n seen within the right lateral recess, which extends into the right foraminal region. Moderate face t hypertrophy is seen. There is moderate to severe right-sided and moderate left-sided neuroforamina l narrowing seen. Moderate central canal narrowing is seen, with associated ventral cord flattening. C5-C6: Moderate to severe loss of disc height and disc signal can be seen. Bridging anterior osteoph ytes are seen. At least moderate disc bulge is seen. Moderate facet hypertrophy is seen. There is m oderate to severe right-sided and moderate left-sided neuroforaminal narrowing seen. Moderate centra l canal narrowing is seen. Associated mass effect is seen upon the ventral spinal cord. C6-C7: Moderate to severe loss of disc height and disc signal can be seen. Bridging anterior osteoph ytes are seen. At least moderate disc bulge is seen. Mild to moderate facet hypertrophy is seen at th is level. There is moderate to severe right-sided and at least moderate left-sided neuroforaminal shereen rowing seen. Moderate central canal narrowing is seen. Associated mass effect is seen upon the sherrell tral spinal cord. C7-T1: The disc height is well-preserved. There is loss of disc signal seen. Mild disc osteophyt e complex is seen. No significant neural foraminal or central canal narrowing can be seen. IMPRESSION: Multiple levels of relatively prominent cervical spine degenerative change are seen, which are worst inferiorly. Grade 1 C5-C6 anterolisthesis is seen. Reversal of the normal cervical lordosis is seen. This is commonly observed in patients with muscular spasm. Reviewed by: Flavio Mccoy MD on 02/14/2021 10:49 AM [facility] Approved by: Flavio cMcoy MD on 02/14/2021 10:49 AM [facility] Station ID: [id number]
== END 2021-02-14 09:53 | disposition home or self-care (01) ==
LOC: DI 09:52
PROVIDERS: ATTEND Family Medicine
DX: M43.12 Spondylolisthesis, cervical region (principal); M47.812 Spondylosis without myelopathy or radiculopathy, cervical region; M50.31 Other cervical disc degeneration, high cervical region; M48.02 Spinal stenosis, cervical region

== ENCOUNTER 2022-02-15 07:30 | Outpatient (CLI) | payer MEDICARE, OTHER ==
[2022-02-15 12:30] LABS: BASOPHILS % (AUTO) 0.7 %; HCT - HEMATOCRIT 44.1 % (37.0-47.0); HGB - HEMOGLOBIN 14.4 g/dL (12.0-16.0); LYMPHOCYTES % (AUTO) 30.2 %; MEAN CORPUSCULAR HEMOGLOBIN 30.4 pg (27.0-31.0); MEAN CORPUSCULAR HGB CONC 32.7 g/dL (32.0-36.0); MEAN CORPUSCULAR VOLUME 93.2 fL (81.0-99.0); MEAN PLATELET VOLUME 9.7 fL (7.9-10.8); MONOCYTES % (AUTO) 4.5 %; NEUTROPHILS % (AUTO) 60.3 %; PLT - PLATELET COUNT 386 10^3/uL (130-450); RED BLOOD COUNT 4.73 10^6/uL (4.20-5.40); RED CELL DISTRIBUTION WIDTH 13.9 % (12.0-15.0); WHITE BLOOD COUNT 7.3 x10^3/uL (4.8-10.8)
[2022-02-15 12:31] LABS: SLIDE REVIEW? Indicated
[2022-02-15 12:32] LABS: ABNORMAL LYMPHS % (MANUAL) 0 %; BAND NEUTROPHILS % (MANUAL) 0 %
[2022-02-15 12:52] LABS: ALBUMIN 3.8 g/dL (3.2-5.5); ALKALINE PHOSPHATASE 64 IU/L (42-121); ALT ALANINE AMINOTRANSFERASE 19 IU/L (10-60); AST ASPARTATE AMINOTRANSFERASE 25 IU/L (10-42); BILIRUBIN,TOTAL 0.5 mg/dL (0.2-1.0); BUN - BLOOD UREA NITROGEN 15 mg/dL (6-20); CALCIUM 9.5 mg/dL (8.5-10.3); CARBON DIOXIDE - CO2 25 mmol/L (21-32); CHLORIDE 100 mmol/L (101-111); CHOL/HDL RATIO 4.3 (<4.4); CHOLESTEROL 185 mg/dL; CREATININE 0.7 mg/dL (0.4-1.0); GFR - MDRD 82 (>89); GLUCOSE 111 mg/dL (70-100); HDL CHOLESTEROL 43 mg/dL; LDL CHOLESTEROL,CALCULATED 127 mg/dL; SODIUM 135 mmol/L (135-145); THYROID STIMULATING HORMONE 1.34 uIU/mL (0.34-5.60); TOTAL PROTEIN 7.6 g/dL (6.7-8.2); TRIGLYCERIDES 75 mg/dL; VLDL CHOLESTEROL 15 mg/dL
[2022-02-15 13:06] LABS: EOSINOPHILS # (MANUAL) 0.3 10^3/uL (0-0.7); LYMPHOCYTES % (MANUAL) 41 %; MONOCYTES # (MANUAL) 0.2 10^3/uL (0.0-1.0); NEUTROPHILS # (MANUAL) 3.8 10^3/uL (1.5-6.6)
[2022-02-15 13:08] LABS: DIFFERENTIAL COMMENT MANUAL DIFFERENTIAL; PLATELET ESTIMATE, MANUAL NORMAL (130-450,000) (NORMAL); PLATELET MORPHOLOGY NORMAL APP (NORMAL); RBC MORPHOLOGY (MULTIPLE) NORMAL APPEARANCE (NORMAL); WBC MORPHOLOGY (MULTIPLE) NORMAL APPEARANCE (NORMAL)
== END 2022-02-15 07:31 | disposition home or self-care (01) ==
LOC: LAB.N 07:30
PROVIDERS: ATTEND Nurse Practitioner Family
DX: I10 Essential (primary) hypertension (principal); F17.210 Nicotine dependence, cigarettes, uncomplicated; Z79.899 Other long term (current) drug therapy; Z91.89 Other specified personal risk factors, not elsewhere classified
CPT/HCPCS: 36415; 80053; 80061; 83721; 84443; 85025

== ENCOUNTER 2022-02-16 08:11 | Outpatient (CLI) | payer MEDICARE, OTHER ==
--- NOTE | 2022-02-16 11:15 | CT Report ---
PROCEDURE: SOFT TISSUE NECK WO INDICATIONS: HEAVY SMOKER, NECK PAIN, NECK MASS TECHNIQUE: Non-contrast 3.0 mm axial sections acquired from the sella to the aortic arch. Additiona l oblique axial 3.0 mm sections acquired through the pharynx. 3 mm thick coronal reformats were gene rated. For radiation dose reduction, the following was used: automated exposure control, adjustment of mA and/or kV according to patient size. COMPARISON: Correlation is made with the overlapping portions of the chest CT, 02/16/2022. Correlatio n is also made with cervical spine MRI, 02/14/2021 FINDINGS: Image quality: Limited by lack of IV contrast. Lymph nodes: No enlarged lymph nodes seen throughout the neck. Vessels: Non-opacified vessels appear normal in caliber. Atherosclerotic calcification is seen. Neck spaces: The oropharynx, nasopharynx, and pharynx demonstrate no mucosal lesions. The vocal cor ds, false vocal cords, pyriform sinuses, epiglottis, vallecula, and tongue base all appear normal. E xtramucosal spaces appear unremarkable. Glands: The parotid and submandibular glands appear normal, without stones. The thyroid is normal i n size. Miscellaneous: Visualized brain and orbits appear normal. Lung apices demonstrate atherosclerotic c hange. Superficial soft tissues appear normal. Relatively prominent cervical spine degenerative change can be seen, with reversal of the normal cerv ical lordosis. There is mild anterolisthesis seen at the C3-C4, with grade 1 anterolisthesis seen at C4-C5. At least moderate lower cervical spine degenerative change can be seen at C4-C5, C5-C6, and C6 -C7. Bridging anterior osteophytes can be seen C4-C7. IMPRESSION: The limits of this study performed without IV contrast, no masses are seen. No enlarged lymph nodes are seen. Additional findings: Prominent cervical spine degenerative change Emphysematous change Reviewed by: Flavio Mccoy MD on 02/16/2022 10:14 AM [facility] Approved by: Flavio Mccoy MD on 02/16/2022 10:14 AM [facility] Station ID: [id number]
--- NOTE | 2022-02-16 14:14 | CT Report ---
PROCEDURE: CHEST WO INDICATIONS: HEAVY SMOKER, NECK PAIN, NECK MASS TECHNIQUE: Noncontrast 1mm axial images were acquired from the pulmonary apices to the posterior costophrenic an gles. Axial 5 mm soft tissue kernel reconstructions were performed as well as 8 mm axial MIP and cor onal and sagittal 5 mm reformations. For radiation dose reduction, the following was used: automate d exposure control, adjustment of mA and/or kV according to patient size. COMPARISON: CT chest with, 09/25/2017 FINDINGS: Image quality: Excellent. Lungs and pleura: Severe emphysema. The 2 cm masslike density in the right lower lobe seen on last C T dated 09/25/2017 is no longer present. There is a 0.6 mm nodule in the right lower lobe (series 6 im age 176). Severe emphysema. No acute air space opacities. There is mild subpleural septal thickening and pulmonary fibrosis, predominantly involving lower lobes. No pleural effusions or pneumothorax. Central and peripheral airways are patent and normal in caliber. Mediastinum: Heart size is normal. Moderate coronary calcification. No pericardial effusion. There is a 1.2 x 1.8 cm precarinal lymph node. Thoracic aorta and central pulmonary arteries are normal in size. Esophagus is normal in caliber. No hiatal hernia. Bones and chest wall: There is scoliosis. Osteopenia. No lytic or blastic bony lesions. No vertebra l body compression fractures. No axillary or supraclavicular adenopathy by size criteria. Small axil mattie lymph nodes are seen bilaterally, nonspecific. The thyroid is normal in size and there are no in cidental findings. Abdomen: Visualized upper abdominal solid organs and bowel loops appear normal in the absence of con trast. IMPRESSION: 1. Severe emphysema. 2. There is a 0.6 cm. Nodule in the right lower lobe. Please see enclosed follow-up recommendation. 3. Mild mediastinal lymphadenopathy. The finding is nonspecific, but most likely reactive. 4. Mild subpleural septal thickening and pulmonary fibrosis. 4. Coronary artery disease. Fleischner Society criteria for SOLID lung nodule followup. Nodule size (mm)Low-risk patientHigh-risk patient "d4No follow-up neededFollow-up at 12 mo; if no change, no further follow-up >6-9Wkkirc-ef CT at 12 mo; if no change, no further follow-up needed.Initial follow-up CT at 6-12 mo, then 18-24 mo if no change. >6-8Initial follow-up CT at 6-12 mo, then 18-24 mo if no change. Initial follow-up CT at 3-6 mo, then 9-12 mo and 24 mo if no change. >8Follow-up CT at 3, 9, 24 mo. Or PET and/or biopsy.Same as for low-risk pts. Fleischner Society criteria for SUB-SOLID lung nodule followup. Solitary pure ground-glass nodules 5 mm or lessNo followup needed. >5 mm3 mo follow-up CT to confirm persistence. Then annual CT for 3 years. Part-solid nodules3 mo follow-up CT to confirm persistence. If persistent with solid component <5 mm , annual CT for at least 3 years. If solid component is 5 mm or more, biopsy or surgical resection. Consider PET-CT for lesions > 10 mm. Multiple sub-solid nodules Pure ground glass nodules [address] at 2 and 4 years. Pure ground glass nodules >5 mm without dominant lesion. [address] to confirm persistence, then annual followup CT for at least 3 years. Dominant nodule(s) with part-solid or solid component. [address] to confirm persistence. If persistent, consider biopsy or surgical resection, ulz if lesions have >5 mm solid component. Reviewed by: Mg Conn MD on 02/16/2022 2:12 PM PST Approved by: Mg Conn MD on 02/16/2022 2:12 PM PST Station ID: [id number]
== END 2022-02-16 08:12 | disposition home or self-care (01) ==
LOC: DI 08:11
PROVIDERS: ATTEND Nurse Practitioner Family
DX: R91.8 Other nonspecific abnormal finding of lung field (principal); M54.2 Cervicalgia; J43.9 Emphysema, unspecified; R91.1 Solitary pulmonary nodule; R59.0 Localized enlarged lymph nodes; J84.10 Pulmonary fibrosis, unspecified; I25.10 Atherosclerotic heart disease of native coronary artery without angina pectoris; F17.210 Nicotine dependence, cigarettes, uncomplicated

== ENCOUNTER 2022-10-11 05:54 | Emergency (ER) | payer MEDICARE, OTHER ==
[2022-10-11 06:07] VITALS: BP 183/81
[2022-10-11] MEDS ORDERED: ACETAMINOPHEN 325 MG TABLET PO STA (06:13)
[2022-10-11] MEDS ORDERED: LIDOCAINE PATCH 5% TOP STA (06:13)
--- NOTE | 2022-10-11 06:15 | ED Physician Documentation ---
PD HPI BACK PAIN - Stated complaint Stated Complaint: BACK PX - Chief complaint Chief Complaint: Trauma Ch/Bk - History obtained from History obtained from: Patient - Additional information Additional information: 77-year-old female presents from home by private vehicle for intense lumbar back pain since last night. Patient states that her microwave is broken and she ordered a new one. The new microwave was delivered last night and when the patient bent down to pick the new microwave up she felt "a loud crack" in her lumbar back and intense pain. Pain persisted throughout the night and so she decided to come in today for evaluation. No medications taken prior to arrival. Patient states that the pain is improved when she is walking around, however when she sits or lays down it is much more intense. Denies numbness, weakness. Reports she is incontinent at baseline Review of Systems Constitutional: denies: Fever, Chills : denies: Dysuria, Frequency, Hesitancy, Unable to Void Musculoskeletal: reports: Back pain. 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, Hysterectomy HEENT: Tonsil/Adenoidectomy - Present Medications Home Medications: Ambulatory Orders Medication Instructions Recorded Confirmed Umeclidinium Avalon [Incruse 1 puffs PO DAILY 12/24/17 10/11/22 Ellipta] HYDROcod/ACETAM 5/325 [[place] 5/325] 1 ea PO Q6H PRN #25 tablet 10/11/22 Omeprazole Magnesium 20 mg PO DAILY 10/11/22 10/11/22 diltiaZEM CD [Cardizem Cd] 240 mg PO DAILY 10/11/22 10/11/22 methocarbamoL [Methocarbamol] 500 mg PO BID 10/11/22 10/11/22 - Allergies Allergies/Adverse Reactions: Allergies Allergy/AdvReac Type Severity Reaction Status Date / Time celecoxib [From Celebrex] AdvReac Severe Nausea Verified 10/11/22 06:06 felodipine AdvReac Severe Jittery Verified 10/11/22 06:06 Coconut Allergy Severe Anaphylaxis Uncoded 10/11/22 06:06 Antihistamines AdvReac Severe Jittery Uncoded 10/11/22 06:06 - Social History Does the pt smoke?: Yes Smoking Status: Current every day smoker Does the pt drink ETOH?: Yes Does the pt have substance abuse?: No - Immunizations Immunizations are current?: Yes - POLST Patient has POLST: No PD ED PE NORMAL - Vitals Vital signs reviewed: Yes - General General: Alert and oriented X 3, Well developed/nourished - HEENT HEENT: Atraumatic - Neck Neck: Supple, no meningeal sign - Cardiac Cardiac: RRR - Respiratory Respiratory: No respiratory distress, Clear bilaterally - Abdomen Abdomen: Soft, Non tender, Non distended - Back Back: No CVA TTP, Other (LUMBAR TTP. NO STEPOFFS) - Derm Derm: Normal color, Warm and dry, No rash - Extremities Extremities: No deformity, Normal ROM s pain - Neuro Neuro: Alert and oriented X 3, senior insight manager international 2-12 intact, No motor deficit, No sensory deficit, Normal speech - Psych Psych: Normal mood, Normal affect Results - Vitals Vitals: Oxygen O2 Source [Without Activity] Room air O2 Source Room air PD Medical Decision Making - ED course Complexity details: re-evaluated patient, considered differential, d/w patient ED course: Back pain after bending an elderly patient. Atraumatic, however patient reports "a loud crack" after bending. Lumbar back pain appears to be diffuse. Due to age will CT L spine. Patient states she has to be able to drive home because no one will be able to pick her up. Lidocaine patch and tylenol ordered for pain. Patient ambulatory with no neurologic deficits on physical exam Pending CT imaging. Care of patient transferred to oncoming provider. Departure - Departure Disposition: 01 Home, Self Care Clinical Impression: Acute low back pain, Lumbar compression fracture Instructions: ED Fx Comp Vertebral Prescriptions: HYDROcod/ACETAM 5/325 [[place] 5/325] 1 ea PO Q6H PRN #25 tablet PRN Reason: Pain Comments: Use ibuprofen 2 to 3 tablets 2-3 times daily for the next several days to a week or more. Add Tylenol 4 times daily regularly. Continue with your methocarbamol muscle relaxant and could add a another dose during the day to help with stif fness and spasms in addition to your bedtime dose. At hydrocodone/acetaminophen every 4-6 hours if needed for pain. No heavy lifting, repetitive bending etc. Light activity is okay. This will hurt the most for the first week and 1/2 to 2 weeks as the initial bone healing occurs. It will take 4 to 6 weeks to fully heal and then there will be back stiffness still. Return to the ER or follow-up with your primary care if worsening despite medication. Otherwise follow-up with your primary care in about a week, call for an appointment. I sent your prescription to [facility] pharmacy. I am prescribing a short course of narcotic pain medication for you. These are potentially dangerous and addictive medications that should be used carefully. These medications may constipate you. Take an rbxz-deq-jowgmma stool softener such as docusate twice daily with plenty of water while taking these medications. If you go 24 hours without a bowel movement, take xdip-djq-lqxlgab MiraLAX, per package instructions. Do not drink or drive while taking these medications. If you received narcotic or sedating medications while in the emergency department do not drive for 24 hours. Store this medication in a safe, secure place and out of reach of children. It is a violation of federal law to give or sell this medication to another person or to use in a manner other than prescribed. The ED will not refill narcotic prescriptions, including prescriptions lost or stolen. You can dispose of unwanted medications at the [facility]'s office or at several pharmacies such as [facility]. Forms: PCP List Discharge Date/Time: 10/11/22 08:24
--- NOTE | 2022-10-11 08:15 | ED Physician Documentation ---
ED Addendum - Addendum Addendum: 10/11/22 08:13 CT report in my view of the CT showed a compression fracture superior endplate of L3 anteriorly. No posterior elements. The patient is uncomfortable but able to stand and walk. I reviewed the findings with her. She is to use ibuprofen 2-3 times daily. Add Tylenol if needed. She will already has methocarbamol she uses 2-3 times daily. She preferred staying with these medicines. To that add hydrocodone every 4-6 hours if needed. This had worked well for her with a prior hip fracture and she did not like oxycodone was too strong. I will send these prescription to [facility] pharmacy. Diagnosis: 1. Acute low back fracture 2. L3 compression fracture Disposition the patient discharged home in stable condition.
--- NOTE | 2022-10-11 08:43 | CT Report ---
PROCEDURE: LUMBAR SPINE WO INDICATIONS: SEVERE BACK PAIN, ATRAUMATIC TECHNIQUE: Noncontrast 3 mm thick sections acquired from the T12 level to the sacrum. Sagittal and coronal refo rmats were constructed. For radiation dose reduction, the following was used: automated exposure co ntrol, adjustment of mA and/or kV according to patient size. COMPARISON: None. FINDINGS: Image quality: Excellent. Bones: There is normal bony alignment. Acute mild superior endplate compression fracture of L3 with approximately 25% midportion vertebral body height loss and no significant retropulsion. No suspiciou s lytic or blastic bony lesions. Central spinal caliber is of normal overall caliber. No pars defec ts. 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 No canal stenosis or foraminal stenosis. L1-L2: No canal stenosis or foraminal stenosis. L2-L3: No canal stenosis or foraminal stenosis. L3-L4: Disc bulge. Facet hypertrophy. Mild canal stenosis. No significant foraminal stenosis. L4-L5: Mild anterolisthesis of L4 on L5. Disc bulge. Prominent facet hypertrophy. Severe canal sten osis. Mild bilateral foraminal stenosis. L5-S1: Severe disc height loss. Posterior osteophyte. Facet hypertrophy. No canal stenosis or donaldo inal stenosis. Soft tissues: No retroperitoneal masses or hematomas. Visualized aorta is normal in caliber. Exten sive bibasilar pulmonary opacities, possibly combination of pulmonary fibrosis and bibasilar pneumoni a. IMPRESSION: 1. Acute mild superior endplate compression fracture of L3. 2. Severe canal stenosis at L4-L5. 3. Bibasilar opacities may represent a combination of pulmonary fibrosis with superimposed bibasilar pneumonia. Findings are concordant with preliminary interpretation provided by [facility]. Reviewed by: Haroldo Mackenzie MD on 10/11/2022 8:42 AM PDT Approved by: Haroldo Mackenzie MD on 10/11/2022 8:42 AM PDT Station ID: [id number]
== END 2022-10-11 08:24 | disposition home or self-care (01) ==
LOC: ED 05:54
DX: M48.56XA Collapsed vertebra, not elsewhere classified, lumbar region, initial encounter for fracture (principal); F17.200 Nicotine dependence, unspecified, uncomplicated
CPT/HCPCS: 72131; 99284; A9270

== ENCOUNTER 2023-05-01 08:12 | Outpatient (CLI) | payer MEDICARE, OTHER ==
--- NOTE | 2023-05-01 13:39 | CT Report ---
PROCEDURE: Chest WO INDICATIONS: HEAVY SMOKER, LUNG MASS TECHNIQUE: A CT scan of the chest was performed. Intravenous contrast media was not administered. Images were re corded and evaluated at appropriate window settings. Reformats: axial MIP of the chest, coronal and s agittal. For radiation dose reduction, the following was used: automated exposure control, adjustment of mA and/or kV according to patient size. COMPARISON: 02/16/2022 FINDINGS: Image quality: Diagnostic. Chest wall and lower neck: No thyroid nodule which requires sonographic follow up. No axillary or sup raclavicular adenopathy by size. No chest wall masses. Lungs and pleura: Moderate to severe centrilobular emphysematous changes in the upper lobes. Coarse b ibasilar fibrotic changes extending into the costophrenic sulci at both posterior lung bases includin g peripheral airway traction bronchiectasis no focal suspicious lung mass, nodule requiring follow-up , consolidation, pleural effusion, or pneumothorax. Mediastinum: Heart size is normal with moderate to heavy coronary artery calcification. No pericardia l effusion. The pulmonary artery outflow tract is enlarged at 4.5 cm in diameter. There is an enlarge d precarinal lymph node measuring 1.4 cm in short axis. Borderline left mediastinal and left infrahil ar lymph nodes also seen. Semicircumferential atherosclerotic calcification at the great vessel origi ns from the arch. Bones: No aggressive osseous abnormality. Upper Abdomen: Partially imaged cholelithiasis. Atherosclerotic calcification. Unenhanced upper abdom inal organs are otherwise unremarkable. IMPRESSION: Moderate to severe upper lobe emphysema. Bilateral lower lobe dense fibrosis. Enlarged pulmonary outflow tract, most likely due to secondary pulmonary artery hypertension. Moderate to heavy coronary artery and systemic atherosclerotic calcification. Enlarged precarinal lymph node, presumably reactive. Reviewed by: Ilene Jimenez MD on 05/01/2023 1:38 PM PST Approved by: Ilene Jimenez MD on 05/01/2023 1:38 PM PST Station ID: [id number]
== END 2023-05-01 08:13 | disposition home or self-care (01) ==
LOC: DI 08:12
PROVIDERS: ATTEND Nurse Practitioner Family
DX: R91.8 Other nonspecific abnormal finding of lung field (principal); F17.210 Nicotine dependence, cigarettes, uncomplicated; J43.2 Centrilobular emphysema; J84.10 Pulmonary fibrosis, unspecified; I25.10 Atherosclerotic heart disease of native coronary artery without angina pectoris; R59.0 Localized enlarged lymph nodes

== ENCOUNTER 2023-11-04 09:31 | Outpatient (CLI) | payer MEDICARE, OTHER ==
--- NOTE | 2023-11-04 16:22 | MRI Report ---
Cervical Spine WO: 11/04/2023 9:33 AM PDT CLINICAL HISTORY: 78 years of age, Female, CERVICAL SPINAL STENOSIS. COMPARISON: 02/14/2021. PROCEDURE COMMENTS: Multiplanar multisequence MR of the cervical spine was obtained without intraveno us contrast. FINDINGS: Localizer image: No visible abnormality. Alignment: Reversal normal cervical spinal lordosis. Mild anterolisthesis of C3 on C4, C4 on C5, oleg sly unchanged from prior exam. Bone marrow: Mild fibrovascular endplate change at C4-5, C5-6, and most pronounced at C6-7. Vertebrae: Vertebral body heights are well-maintained. Intervertebral discs:Multilevel disc desiccation and disc bulge. Cord: No abnormal signal. Right neuroforaminal stenosis: Mild at C6-7. Left neuroforaminal stenosis: Mild at C3-4. Axial images: C2-3: No central canal stenosis. C3-4: Posterior disc uncovering. No central canal stenosis. C4-5: Posterior disc uncovering. Moderate central canal stenosis. C5-6: Posterior disc osteophyte complex. No central canal stenosis. C6-7: Posterior disc osteophyte complex. No central canal stenosis. C7-T1: Posterior disc osteophyte complex. No central canal stenosis. Large perineural cyst are seen at bilateral and T1-T2. Extra-vertebral soft tissues: Unremarkable IMPRESSION: 1.Multilevel degenerative changes of the cervical spine, most pronounced at C4-5, where there is mode rate central canal stenosis, grossly unchanged from prior exam. Reviewed by: Ekta Hemphill MD on 11/04/2023 4:20 PM PDT Approved by: Ekta Hemphill MD on 11/04/2023 4:20 PM PDT Station ID: [id number]
== END 2023-11-04 09:32 | disposition home or self-care (01) ==
LOC: DI 09:31
PROVIDERS: ATTEND Physical Medicine & Rehabilitation Pain Medicine
DX: M47.812 Spondylosis without myelopathy or radiculopathy, cervical region (principal); M48.02 Spinal stenosis, cervical region

== ENCOUNTER 2024-08-08 06:08 | Inpatient (IN) ==
--- NOTE | 2024-08-08 06:32 | ED Physician Documentation ---
PD HPI DYSPNEA Stated complaint Stated Complaint: DIFF BREATHING Chief complaint Chief Complaint: Resp Additional information Additional information: BIBA. HPI from EMS, patient. Patient c/o dyspnea since last night, no inciting event and gradual onset but steadily progressive throughout the night. PMHx includes COPD; she says she does not use supplemental oxygen at home, does not have prescribed rescue inhalers nor nebulizer. She notes BLE swelling of new onset x 1 week. Denies any pain includes chest pain. Given duoneb and 125mg IV solu-medrol en route by EMS. Patient smokes 1 PPD. Denies fever, cough. Dyspnea is worse with exertion. Pulse ox 80% RA on initial assessment by EMS, 93% with supplemental NC oxygen subsequent to duoneb. Meds/Allgy Home Medications Ambulatory Orders Medication Instructions Recorded Confirmed omeprazole magnesium 20 mg 20 mg PO DAILY #90 caps 06/0108/08/24 capsule,delayed release diltiazem HCl 240 mg See Rx Instructions .Route 0 06/09/24 08/08/24 capsule,extended release 24 hr .COMPLEX #90 caps umeclidinium 62.5 mcg/actuation 1 inh PO DAILY #90 ea 06/13/24 08/08/24 blister powder for inhalation (Incruse Ellipta) ropinirole 0.25 mg tablet 0.25 mg PO .COMPLEX #90 tabs 08/05/24 08/08/24 aspirin 81 mg tablet,delayed 81 mg PO DAILY 08/08/24 0 08/08/24 release (Adult Aspirin Regimen) diphenhydramine HCl 25 mg capsule 25 mg PO HS PRN inso mnia 08/08/24 08/08/24 (Benadryl) Allergies Allergies Allergy/AdvReac Type Severity Reaction Status Date / Time coconut Allergy Anaphylaxis Verified 08/08/24 07:49 celecoxib (From Celebrex) AdvReac Severe Nausea Verified 08/08/24 06:25 felodipine AdvReac Severe Jittery, Verified 08/08/24 06:25 DIZZINESS, RESTLES LEG SYNDROM Antihistamines - Alkylamine AdvReac JITTERY Verified 08/08/24 07:49 PFSH Active Problems All Active Problems (Updated 08/08/24 @ 09:52 by Alonzo Flores MD) Pleural effusion (Acute) CHF (congestive heart failure) (Acute) COPD exacerbation (Acute) COPD (chronic obstructive pulmonary disease) (Chronic) Hypertension, essential, benign (Acute) Peripheral vascular disease (Acute) Right-sided thoracic back pain (Acute) Closed fracture of unspecified trochanteric section of femur (Acute) Primary osteoarthritis, right shoulder (Acute) Carpal tunnel syndrome, left (Acute) Arthritis of carpometacarpal (CMC) joint of left thumb (Acute) 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) Abnormal chest CT (Acute) Lung mass (Acute) Senile ectropion (Acute) Neck pain (Acute) Steatohepatitis (Acute) Heavy smoker (Acute) High risk medication use (Acute) Need for diphtheria, tetanus, acellular pertussis, haemophilus influenzae, and hepatitis B virus vaccine (Acute) Heartburn (Acute) Chronic back pain (Acute) Restless leg syndrome (Acute) 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 (20 cigarettes=1 Pk): 15 Do you dip or chew tobacco?: No Patient requests smoking cessation consult: Yes Initiate information on smoking cessation: Yes Living arrangement: At home Relationship: Do you feel safe in your home environment?: Yes Suffered physical, verbal, emotional, or financial abuse?: No History of Abuse: No Frequency: Occasional POLST Patient has POLST: No Exam Exam Vital Signs: Vital Signs x48h Temp Pulse Resp BP Pulse Ox O2 Flow Rate 08/08/24 11:06 82 22 136/61 H 89 L 9 08/08/24 10:19 82 22 132/68 H 88 L 08/08/24 09:34 79 24 92/63 89 L 9 08/08/24 09:15 9 08/08/24 09:06 78 18 127/66 90 L 9 08/08/24 08:09 85 26 H 126/66 88 L 9 08/08/24 07:51 9 08/08/24 07:45 75 20 08/08/24 06:56 74 20 126/66 97 08/08/24 06:45 77 08/08/24 06:25 15 08/08/24 06:25 75 20 93 15 08/08/24 06:21 36.5 C 77 22 126/65 91 L 15 Constitutional normal general appearance, no apparent distress and alert Respiratory breath sounds equal bilaterally, auscultation abnormal (diminished breath sound), no wheezes and no rales Cardiovascular normal heart rate noted, regular rhythm noted, no JVD and edema noted (2+ LLE , 3+ RLE) Gastrointestinal abdomen soft to palpation, nontender to palpation, nondistended and normoactive bowel sounds Psychiatry mental status grossly normal and oriented x3 Skin skin color normal Results Vitals Vitals: Vital Signs - 24 hr 08/08/24 06:21 08/08/24 06:25 08/08/24 06:25 Temperature 36.5 C Temperature Source Tympanic Pulse Rate 77 75 Respiratory Rate 22 20 Blood Pressure 126/65 O2 Saturation 91 L 93 Oxygen Delivery Method Non-Rebreather O2 Source Non-rebreather mask Non-rebreather mask If not protocol: Oxygen Flow, liters/minute 15 15 15 Fraction of Inspired Oxygen (FIO2) Pain Intensity 0 08/08/24 06:45 08/08/24 06:56 08/08/24 07:45 Temperature Temperature Source Pulse Rate 77 74 75 Respiratory Rate 20 20 Blood Pressure 126/66 O2 Saturation 97 Oxygen Delivery Method O2 Source BIPAP If not protocol: Oxygen Flow, liters/minute Fraction of Inspired Oxygen (FIO2) 80 Pain Intensity 08/08/24 07:51 08/08/24 08:09 08/08/24 09:06 Temperature Temperature Source Pulse Rate 85 78 Respiratory Rate 26 H 18 Blood Pressure 126/66 127/66 O2 Saturation 88 L 90 L Oxygen Delivery Method O2 Source HHFNC HHFNC If not protocol: Oxygen Flow, liters/minute 9 9 9 Fraction of Inspired Oxygen (FIO2) Pain Intensity 0 0 08/08/24 09:15 08/08/24 09:34 08/08/24 10:19 Temperature Temperature Source Pulse Rate 79 82 Respiratory Rate 24 22 Blood Pressure 92/63 132/68 H O2 Saturation 89 L 88 L Oxygen Delivery Method Nasal Cannula O2 Source HHFNC HHFNC If not protocol: Oxygen Flow, liters/minute 9 9 Fraction of Inspired Oxygen (FIO2) Pain Intensity 0 0 08/08/24 11:06 Temperature Temperature Source Pulse Rate 82 Respiratory Rate 22 Blood Pressure 136/61 H O2 Saturation 89 L Oxygen Delivery Method O2 Source HHFNC If not protocol: Oxygen Flow, liters/minute 9 Fraction of Inspired Oxygen (FIO2) Pain Intensity 0 Oxygen O2 Source [Without Activity] Room air O2 Source HHFNC Labs Labs: Laboratory Tests 08/08/24 08/08/24 08/08/24 06:53 07:09 07:09 WBC 7.9 RBC 5.35 Hgb 15.9 Hct 48.7 H MCV 91.0 MCH 29.7 MCHC 32.6 RDW 15.7 H Plt Count 265 MPV 10.1 Neut # (Auto) 6.8 H Lymph # (Auto) 0.7 L [place] # (Auto) 0.3 Eos # (Auto) 0.0 Baso # (Auto) 0.0 Absolute Nucleated RBC 0.00 Nucleated RBC % 0.0 Bld Gas Analysis Time 0659 Sample Site LEFT BRACHIAL ABG pH 7.36 ABG pCO2 31 L ABG pO2 92 ABG HCO3 17.9 L ABG Total CO2 18.9 L ABG O2 Saturation 98 ABG Base Excess -7.7 L Trace Test NOT APPLICABLE Respiration Rate 10 O2 Delivery Device BiPAP Vent Mode BiPAP FiO2 60.00 EPAP 5 IPAP 10 Sodium 129 L Potassium 4.5 Chloride 97 L Carbon Dioxide 20 L Anion Gap 12.0 BUN 39 H Creatinine 1.2 Estimated GFR (MDRD) 44 L Glucose 117 H Calcium 9.4 Total Bilirubin 0.5 AST 243 H ALT 344 H Alkaline Phosphatase 86 Troponin I High Sens 17.3 H* B-Natriuretic Peptide Cancelled 1130 H Total Protein 7.8 Albumin 4.0 Globulin 3.8 Albumin/Globulin Ratio 1.1 PD Medical Decision Making ED course Complexity details: considered differential and d/w patient ED course: Early in ED stay patient had increasing supplemental oxygen requirement to maintain pulse ox at/above 90%; she was thus placed on 15 l/min NRB and this was subsequently changed to BiPAP. She was not in extremis; the BiPAP was initiated due to decreasing pulse ox (mid-80s) despite increasing supplemental oxygen as well as considering h/o COPD and thus to also minimize CO2 retention. Test results are pending at end of my shift, care of patient turned over to oncoming ED physician (Dr. Flores). Discharge Plan Discharge Patient Disposition: 66 [facility] DC/Xfer Condition: Fair Clinical Impression: COPD exacerbation, Pleural effusion CHF (congestive heart failure) Qualifiers: Heart failure type: unspecified Heart failure chronicity: acute Qualified Code(s): I50.9 - Heart failure, unspecified Prescriptions: No Action omeprazole magnesium 20 mg capsule,delayed release(DR/EC) 20 mg PO DAILY Qty: 90 3RF diltiazem HCl 240 mg capsule,extended release 24hr See Rx Instructions .ROUTE .COMPLEX Qty: 90 0RF Dose Instruction: TAKE 1 CAPSULE DAILY FOR HIGH BLOOD PRESSURE Rx Instructions: TAKE 1 CAPSULE DAILY FOR HIGH BLOOD PRESSURE Incruse Ellipta 62.5 mcg/actuation blister with device 1 inh PO DAILY Qty: 90 3RF ropinirole 0.25 mg tablet 0.25 mg PO .COMPLEX Qty: 90 0RF Rx Instructions: ; TAKE 1 TABLET BY MOUTH EVERY 2 HRS BEFORE BEDTIMEE FOR RESTLESS LEGS diphenhydramine HCl [Benadryl] 25 mg capsule 25 mg PO HS PRN (Reason: insomnia) aspirin [Adult Aspirin Regimen] 81 mg tablet,delayed release (DR/EC) 81 mg PO DAILY Print Language: Finnish
[2024-08-08 07:08] LABS: ABG PCO2 31 mmHg (34-45); ABG PH 7.36 (7.35-7.45)
[2024-08-08 07:09] LABS: ABG BASE EXCESS -7.7 mmol/L (-2.0-3.0); ABG HCO3 17.9 mmol/L (22.0-26.0); ABG OXYGEN SATURATION 98 % (95-98); ABG PO2 92 mmHg (83-108); ABG TCO2 18.9 mmol/L (21.0-29.0)
[2024-08-08 07:10] LABS: ABG MODE OF VENTILATION BiPAP; ABG RESPIRATORY RATE 10 b/min
--- OUTSIDE RECORDS SUMMARY | 2024-08-08 07:25 | EXTERNAL MEDICAL SUMMARY RPT | Continuity of Care Document ---
Author Organization [facility] Address [address] [address] Phone Problems date description facility 2024-06-18 05:55 Spinal stenosis, cervical regio n [facility] Results/Labs test date facility value unit notes Result panel 1 ABG BASE EXCESS 2024-08-08 06:53 [facility] -7.7 mmol/l (missing) ABG ANALYSIS TIME 2024-08-08 06:53 [facility] 0659 (missing) (missing) ABG RESPIRATORY RATE 2024-08-08 06:53 [facility] 10 b/min (missing) ABG INSPIRATORY POS AIRWAY P 2024-08-08 06:53 [facility] 10 cmh2o (missing) ABG HCO3 2024-08-08 06:53 [facility] 17.9 mmol/l (missing) ABG TCO2 2024-08-08 06:53 [facility] 18.9 mmol/l (missing) ABG PCO2 2024-08-08 06:53 [facility] 31 mmhg (missing) ABG EXPIRATORY POS AIRWAY P 2024-08-08 06:53 [facility] 5 cmh2o (missing) ABG FRACTION OF INSPIRED O2 2024-08-08 06:53 [place] 60.00 (missing) (missing) ABG PH 2024-08-08 06:53 [facility] 7.36 (missing) (missing) ABG PO2 2024-08-08 06:53 [facility] 92 mmhg (missing) ABG OXYGEN SATURATION 2024-08-08 06:53 [facility] 98 % (missing) ABG MODE OF VENTILATION 2024-08-08 06:53 [facility] BiPAP (missing) (missing) ABG O2 DEVICE 2024-08-08 06:53 [facility] BiPAP (missing) (missing) ABG SITE OF DRAW 2024-08-08 06:53 [facility] LEFT BRACHIAL (missing) (missing) KENIA TEST 2024-08-08 06:53 [facility] NOT APPLICABLE (missing) Information or result provided by [facility]. Social History date description facility
[2024-08-08 07:29] LABS: BASOPHILS % (AUTO) 0.5 %; EOSINOPHILS % (AUTO) 0.3 %; HCT - HEMATOCRIT 48.7 % (37.0-47.0); HGB - HEMOGLOBIN 15.9 g/dL (12.0-16.0); LYMPHOCYTES # (AUTO) 0.7 10^3/uL (1.5-3.5); LYMPHOCYTES % (AUTO) 8.6 %; MEAN CORPUSCULAR HEMOGLOBIN 29.7 pg (27.0-31.0); MEAN CORPUSCULAR HGB CONC 32.6 g/dL (32.0-36.0); MEAN PLATELET VOLUME 10.1 fL (7.9-10.8); MONOCYTES # (AUTO) 0.3 10^3/uL (0.0-1.0); MONOCYTES % (AUTO) 3.7 %; NEUTROPHILS # (AUTO) 6.8 10^3/uL (1.5-6.6); NEUTROPHILS % (AUTO) 86.4 %; PLT - PLATELET COUNT 265 10^3/uL (130-450); RED BLOOD COUNT 5.35 10^6/uL (4.20-5.40); RED CELL DISTRIBUTION WIDTH 15.7 % (12.0-15.0); WHITE BLOOD COUNT 7.9 x10^3/uL (4.8-10.8)
[2024-08-08] MEDS: ALBUTEROL NEB 2.5 MG/3 ML INH STA (07:49)
[2024-08-08 08:03] LABS: ALBUMIN/GLOBULIN RATIO 1.1 (1.0-2.2); BILIRUBIN,TOTAL 0.5 mg/dL (0.2-1.0); CALCIUM 9.4 mg/dL (8.5-10.3); CREATININE 1.2 mg/dL (0.6-1.3); POTASSIUM 4.5 mmol/L (3.5-4.5); TOTAL PROTEIN 7.8 g/dL (6.4-8.9)
[2024-08-08] MEDS: ONDANSETRON 4 MG/2 ML VIAL IVP STA (08:04)
--- NOTE | 2024-08-08 08:11 | ED Physician Documentation ---
ED Addendum Addendum Addendum: 79-year-old female signed out to me by Dr. Houser, see his note for full H&P on this patient. Briefly she has a history of pulmonary fibrosis and COPD. Does not use home oxygen. Increasing dyspnea over the past several days. She also complains of bilateral lower extremity edema for the past several months. No chest pain. No fevers. States had URI symptoms a few weeks ago. Initially was on BiPAP but has been weaned off of this onto nasal cannula/Oxymizer at 9 L. Received DuoNeb and Solu-Medrol with EMS. CT pulmonary angiogram does not show any evidence of PE, does have pleural effusions, elevated BNP consistent with CHF. Given Lasix. Will continue nebulizer treatments. Will admit for hypoxia, COPD exacerbation, pleural effusions and likely congestive heart failure. Discussed the case with the hospitalist, Dr. George who accepts. This document was made in part using voice recognition software. While efforts are made to proofread this document, sound alike and grammatical errors may occur. Discharge Plan Discharge Patient Disposition: 66 [facility] DC/Xfer Condition: Fair Clinical Impression: COPD exacerbation, Pleural effusion CHF (congestive heart failure) Qualifiers: Heart failure type: unspecified Heart failure chronicity: acute Qualified Code(s): I50.9 - Heart failure, unspecified Prescriptions: No Action omeprazole magnesium 20 mg capsule,delayed release(DR/EC) 20 mg PO DAILY Qty: 90 3RF diltiazem HCl 240 mg capsule,extended release 24hr See Rx Instructions .ROUTE .COMPLEX Qty: 90 0RF Dose Instruction: TAKE 1 CAPSULE DAILY FOR HIGH BLOOD PRESSURE Rx Instructions: TAKE 1 CAPSULE DAILY FOR HIGH BLOOD PRESSURE Incruse Ellipta 62.5 mcg/actuation blister with device 1 inh PO DAILY Qty: 90 3RF ropinirole 0.25 mg tablet 0.25 mg PO .COMPLEX Qty: 90 0RF Rx Instructions: ; TAKE 1 TABLET BY MOUTH EVERY 2 HRS BEFORE BEDTIMEE FOR RESTLESS LEGS diphenhydramine HCl [Benadryl] 25 mg capsule 25 mg PO HS PRN (Reason: insomnia) aspirin [Adult Aspirin Regimen] 81 mg tablet,delayed release (DR/EC) 81 mg PO DAILY Print Language: Danish
--- NOTE | 2024-08-08 08:14 | XRAY Report ---
PROCEDURE: XR Chest 1V INDICATIONS: dyspnea TECHNIQUE: One view of the chest was acquired. COMPARISON: Chest radiograph 06/18/2019, CT chest without 05/01/2023. FINDINGS: Surgical changes and devices: Right shoulder arthroplasty. Lungs and pleura: Small bilateral pleural effusions, right greater than left. Similar background of interstitial opacities and emphysematous changes. Is increased opacity at the lung bases favored to represent compressive atelectasis. Mediastinum: Mediastinal contours appear normal. Heart size is normal. Bones and chest wall: No suspicious bony lesions. Overlying soft tissues appear unremarkable. IMPRESSION: Right greater than left small bilateral pleural effusions with subjacent atelectasis. Similar background of chronic interstitial and emphysematous changes. Reviewed by: Nereida Dunlap MD, PhD on 08/08/2024 8:13 AM PDT Approved by: Nereida Dunlap MD, PhD on 08/08/2024 8:13 AM PDT Station ID: [id number]
[2024-08-08] MEDS ORDERED: iohexoL-300 100 ML VIAL ONE (08:39)
--- NOTE | 2024-08-08 09:35 | CT Report ---
PROCEDURE: CT Angio Chest INDICATIONS: dyspnea, leg swelling, hypoxia CONTRAST: 80ml omni 300 TECHNIQUE: After the administration of intravenous contrast, 2 mm axial images were acquired from the pulmonary apices to the posterior costophrenic angles during the arterial phase. In addition, 1 mm lung kernel and 5 mm soft tissue kernel reconstructions were performed. 3-dimensional coronal oblique maximum intensity projection (MIP) reformats, 8 mm axial MIP, and 5 mm coronal and sagittal MPR reformats were then performed through the thorax. For radiation dose reduction, the following was used: automated exposure control, adjustment of mA and/or kV according to patient size. COMPARISON: 05/01/2023 FINDINGS: Image quality: There is artifact associated with the metallic hardware. Large vessels: No filling defects within the opacified pulmonary arteries, accounting for motion and contrast timing. The main pulmonary artery measures 4.3 cm. No evidence of acute aortic syndrome or aortic aneurysm. Lungs and pleura: Centrilobular emphysematous changes are seen, which are more prominent at the lung apices than at the lung bases. There is a small right-sided pleural effusion and a trace left-sided pleural effusion. Overlying depending consolidation can be seen, which is associated to atelectasis. Mild ground glass opacities can be seen, with a dependent distribution. No pneumothorax is seen. Mediastinum: Dense atherosclerotic calcification can be seen of the coronary arteries. Heart size is mildly enlarged, with enlargement of the right heart. No pericardial effusion. No large vessel abnormality. A mildly enlarged precarinal lymph node is seen measuring 10 x 22 mm. Chest wall and lower neck: Thyroid is unremarkable. No axillary or supraclavicular adenopathy by size. Bones: No aggressive osseous abnormality. Age-appropriate degenerative changes are seen. There is accentuated thoracic kyphosis. Right shoulder arthroplasty hardware is seen, with associated streak artifact. Upper Abdomen: There is reflux of contrast seen into the inferior vena cava and into the hepatic veins. The visualized portions of the upper abdominal structures are otherwise within normal limits. IMPRESSION: Negative for pulmonary embolism. Pleural effusions and dependent ground glass opacities can be seen, with mild cardiomegaly and reflux of contrast into the inferior vena cava and hepatic veins. These findings are suspicious for CHF. Mildly enlarged precarinal lymph node again seen, likely reactive. Underlying emphysematous changes are seen. Additional findings: Dense coronary calcification Right shoulder arthroplasty hardware Enlarged pulmonary arteries, please consider pulmonary artery hypertension Reviewed by: Flavio Mccoy MD on 08/08/2024 8:34 AM BRENNA Approved by: Flavio Mccoy MD on 08/08/2024 8:34 AM BRENNA Station ID: [id number]
[2024-08-08] MEDS: iohexoL-300 100 ML VIAL IVP ONE (09:48)
[2024-08-08] MEDS: FUROSEMIDE 20 MG/2 ML VIAL IVP STA (10:16)
--- OUTSIDE RECORDS SUMMARY | 2024-08-08 13:15 | EXTERNAL MEDICAL SUMMARY RPT | Continuity of Care Document ---
Author Organization [facility] Address [address] [address] Phone Problems date description facility 2024-06-18 05:55 Spinal stenosis, cervical regio n [facility] Results/Labs test date facility value unit notes Result panel 1 ABG BASE EXCESS 2024-08-08 06:[facility] -7.7 mmol/l (missing) ABG ANALYSIS TIME 2024-08-08 06:53 [facility] 0659 (missing) (missing) ABG RESPIRATORY RATE 2024-08-08 06:53 [facility] 10 b/min (missing) ABG INSPIRATORY POS AIRWAY P 2024-08-08 06:53 [facility] 10 cmh2o (missing) ABG HCO3 2024-08-08 06:53 [facility] 17.9 mmol/l (missing) ABG TCO2 2024-08-08 06:53 [facility] 18.9 mmol/l (missing) ABG PCO2 2024-08-08 06:53 [facility] 31 mmhg (missing) ABG EXPIRATORY POS AIRWAY P 2024-08-08 06:53 [facility] 5 cmh2o (missing) ABG FRACTION OF INSPIRED O2 2024-08-08 06:53 [facility] 60.00 (missing) (missing) ABG PH 2024-08-08 06:53 [facility] 7.36 (missing) (missing) ABG PO2 2024-08-08 06:53 [facility] 92 mmhg (missing) ABG OXYGEN SATURATION 2024-08-08 06:53 [facility] 98 % (missing) ABG MODE OF VENTILATION 2024-08-08 06:53 [facility] BiPAP (missing) (missing) ABG O2 DEVICE 2024-08-08 06:53 [facility] BiPAP (missing) (missing) ABG SITE OF DRAW 2024-08-08 06:53 [facility] LEFT BRACHIAL (missing) (missing) KENIA TEST 2024-08-08 06:53 [facility] [employer] NOT APPLICABLE (missing) Information or result provided by [facility]. Result panel 2 NUCLEATED RED BLOOD CELLS AUTO 2024-08-08 07:09 [facility] 0.0 /100wbc (missing) BASOPHILS # (AUTO) 2024-08-08 07:09 [facility] 0.0 10 3/ul (missing) EOSINOPHILS # (AUTO) 2024-08-08 07:09 [facility] 0.0 10 3/ul (missing) NRBC ABSOLUTE COUNT (AUTO) 2024-08-08 07:09 [facility] 0.00 x10 3/ul (missing) MONOCYTES # (AUTO) 2024-08-08 07:09 [facility] 0.3 10 3/ul (missing) BILIRUBIN,TOTAL 2024-08-08 07:09 [employer] [employer] 0.5 mg/dl As of September 2022 testing method has changed, this may include reference ranges. LYMPHOCYTES # (AUTO) 2024-08-08 07:09 [facility] 0.7 10 3/ul (missing) ALBUMIN/GLOBULIN RATIO 2024-08-08 07:09 [facility] 1.1 (missing) (missing) CREATININE 2024-08-08 07:09 [employer] 1.2 mg/dl As of September 2022 testing method has changed, this may include reference ranges. MEAN PLATELET VOLUME 2024-08-08 07:09 [employer] 10.1 fl (missing) BNP - B-NATRIURETIC PEPTIDE 2024-08-08 07:09 [facility] 1130 pg/ml (missing) GLUCOSE 2024-08-08 07:09 [facility] 117 mg/dl As of September 2022 testing method has changed, this may include reference ranges. ANION GAP 2024-08-08 07:09 [facility] 12.0 (missing) (missing) SODIUM 2024-08-08 07:09 [facility] 129 mmol/l (missing) RED CELL DISTRIBUTION WIDTH 2024-08-08 07:09 [employer] 15.7 % (missing) HGB - HEMOGLOBIN 2024-08-08 07:09 [employer] 15.9 g/dl (missing) TROPONIN I HIGH SENSITIVITY 2024-08-08 07:09 [employer] 17.3 ng/l Critical result [facility] 17.3 pg/mL called to and read back by REMEDIOS Mccracken/RN/ED at 08-Aug-2024 08:42 by elliot. A HIGH SENSITIVITY TROPONIN result of >= 14.9 ng/L for females is considered POSITIVE. A HIGH SENSITIVITY TROPONIN result of >= 19.8 ng/L for males is considered POSITIVE. A HIGH SENSITIVITY TROPONIN result of >= 17.9 ng/L for unspecified is considered POSITIVE. CARBON DIOXIDE - CO2 2024-08-08 07:09 [employer] 20 mmol/l As of September 2022 testing method has changed, this may include reference ranges. AST ASPARTATE AMINOTRANSFERASE 2024-08-08 07:09 [employer] 243 iu/l As of September 2022 testing method has changed, this may include reference ranges. PLT - PLATELET COUNT 2024-08-08 07:09 [employer] 265 10 3/ul (missing) MEAN CORPUSCULAR HEMOGLOBIN 2024-08-08 07:09 [employer] 29.7 pg (missing) GLOBULIN 2024-08-08 07:09 [employer] 3.8 g/dl (missing) MEAN CORPUSCULAR HGB CONC 2024-08-08 07:09 [employer] 32.6 g/dl (missing) ALT ALANINE AMINOTRANSFERASE 2024-08-08 07:09 [employer] 344 iu/l As of September 2022 testing method has changed, this may include reference ranges. BUN - BLOOD UREA NITROGEN 2024-08-08 07:09 [employer] 39 mg/dl As of September 2022 testing method has changed, this may include reference ranges. ALBUMIN 2024-08-08 07:09 [employer] 4.0 g/dl As of September 2022 testing method has changed, this may include reference ranges. POTASSIUM 2024-08-08 07:09 [employer] 4.5 mmol/l As of September 2022 testing method has changed, this may include reference ranges. GFR - MDRD 2024-08-08 07:09 [employer] 44 (missing) Social History date description facility
[2024-08-08] MEDS ORDERED: ACETAMINOPHEN 325 MG TABLET PO PRN (13:20)
[2024-08-08] MEDS: diltiaZEM CD 240 MG CAPSULE PO SCH (14:14)
--- NOTE | 2024-08-08 14:27 | HISTORY & PHYSICAL EXAMINATION ---
Chief Complaint Chief Complaint Chief Complaint: COPD exacerbation, new onset CHF History of Present Illness Admitted From Admitted From:: Emergency Department History Obtained From History obtained from: Patient and ER records History of Present Illness HPI Comment/Other: This is a pleasant 79 year old female with PMHx of COPD and >100 pack year history who presents for admission due to COPD exacerbation and new onset CHF. Patient reports she has been having worsening SOB and LE swelling in the last month, worse in the last night, prompting her to present to the ED. States she had about 3 days of a low grade fever last month, which resolved. Denies weight loss, noting weight gain in the last few days. Denies night sweats, chills. Reports difficulty walking due to leg swelling. States she has a chronic cough, which has been worse the last month. Reports sputum production, which is clear. Denies any changes in SOB with position but worse with exertion such as talking. States she lives with , denies recent sick contacts. Denies rash, new bruising. States she has been feeling bloated the last month but denies any ABD pain, N/V, changes in bowel habits. States she has been smoking less than half pack per day the last 3-4 years, down from 2 PPD since age 22 years old. Reports alcohol cessation 11 years ago, admitting to alcohol abuse since age 21. Denies recent travel, history of hepatitis infection. Denies chest pain, heart palpitations. Denies new confusion or changes in mentation. Only taking Diltiazem 240mg ER QD at home. Denies any rescue inhalers, LABAs, home O2, or home nebulizer treatments. Patient was given duoneb and 125mg IV solu-medrol by EMS with improvement from 80% to 93% Pulse Ox RA. She was then placed on 15 l/min NRB but changed to BiPAP due to decreasing pulse ox. She was transitioned to Oxymizer at 9L once she had stabilization of O2 to 88%. Patient given IV Lasix with improvement in LE swelling and continues on nebulizer treatments. Meds/Allgy Home Medications Ambulatory Orders Medication Instructions Recorded Confirmed diltiazem HCl 240 mg See Rx Instructions .Route 0 06/09/24 08/08/24 capsule,extended release 24 hr .COMPLEX #90 caps umeclidinium 62.5 mcg/actuation 1 inh PO DAILY #90 ea 06/13/24 08/08/24 blister powder for inhalation (Incruse Ellipta) ropinirole 0.25 mg tablet 0.25 mg PO .COMPLEX #90 tabs 08/05/24 08/08/24 aspirin 81 mg tablet,delayed 81 mg PO DAILY 08/08/24 0 08/08/24 release (Adult Aspirin Regimen) diclofenac potassium 50 mg tablet 50 mg PO BID PRN kandi n 08/08/24 08/08/24 diphenhydramine HCl 25 mg capsule 25 mg PO HS PRN inso mnia 08/08/24 08/08/24 (Benadryl) omeprazole 20 mg capsule,delayed 20 mg PO DAILY 08/08/24 release Allergies Allergies Allergy/AdvReac Type Severity Reaction Status Date / Time coconut Allergy Anaphylaxis Verified 08/08/24 07:49 celecoxib (From Celebrex) AdvReac Severe Nausea Verified 08/08/24 06:25 felodipine AdvReac Severe Jittery, Verified 08/08/24 06:25 DIZZINESS, RESTLES LEG SYNDROM Antihistamines - Alkylamine AdvReac JITTERY Verified 08/08/24 07:49 PFSH Active Problems All Active Problems (Updated 08/09/24 @ 15:41 by Ailin George MD) Noncompliance (Acute) Acute respiratory failure with hypoxia and hypercarbia (Acute) Pleural effusion (Acute) CHF (congestive heart failure) (Acute) COPD exacerbation (Acute) Hypertension, essential, benign (Acute) Peripheral vascular disease (Acute) Right-sided thoracic back pain (Acute) Closed fracture of unspecified trochanteric section of femur (Acute) Primary osteoarthritis, right shoulder (Acute) Carpal tunnel syndrome, left (Acute) Arthritis of carpometacarpal (CMC) joint of left thumb (Acute) 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) Abnormal chest CT (Acute) Lung mass (Acute) Senile ectropion (Acute) Neck pain (Acute) Steatohepatitis (Acute) Heavy smoker (Acute) High risk medication use (Acute) Need for diphtheria, tetanus, acellular pertussis, haemophilus influenzae, and hepatitis B virus vaccine (Acute) Heartburn (Acute) Chronic back pain (Acute) Restless leg syndrome (Acute) Atherosclerotic heart disease of [place] coronary artery with angina pectoris (Acute) Medical History Medical History (Updated 08/09/24 @ 15:41 by Ailin George MD) 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 Fiberoptic flex laryngoscopy nml. Told to stop smoking History of alcohol abuse started drinking age 21, stopped 2013. Cervical stenosis of spine MRI 11/04/23 GERD (gastroesophageal reflux disease) EGD 2014 with severe gastropathy and distal esophagitis Shoulder arthralgia R humeral head resurfacing 2014 Intertrochanteric fracture of femur w fall and 06/2013 ORIF Wrist fracture ORIF w deformed L wrist, she did it after fall Multiparous . one miscarriage. COPD (chronic obstructive pulmonary disease) FVC (128%) FEV1 2.52 (121%) FEV1/FVC 68%, VC 2.9 (129%), DLCO 8.5 (45%). Minimal obstructive lung defect. More detailed pulmonary function requested. Moderate decrease in diffusion capacity. Insignificant response to bronchodilator. Hypertension COPD (chronic obstructive pulmonary disease) Surgical History Surgical History (Updated 08/08/24 @ 16:19 by Ailin George MD) S/P tonsillectomy and adenoidectomy S/P JAVIER (total abdominal hysterectomy) History of carpal tunnel release Hx of cholecystectomy H/O section Social History Social History (Updated 08/08/24 @ 08:13 by Ciro Champagne RN) Smoking Status: Current every day smoker Number of Years Smoked: 57 How many cigarettes a day do you smoke? (20 cigarettes=1 Pk): 15 Second hand tobacco smoke exposure: No Do you dip or chew tobacco?: No Do you vape?: No Patient requests smoking cessation consult: Yes Initiate information on smoking cessation: Yes Smoking Status Details: "Not even one pack a day" Living arrangement: At home Relationship: Level: Assisted Home Mobility Equipment: Walker Do you feel safe in your home environment?: Yes Suffered physical, verbal, emotional, or financial abuse?: No History of Abuse: No Frequency: Occasional POLST Patient has POLST: No Review of Systems Status of ROS: 10 or more systems reviewed and unremarkable except as noted in history and below Constitutional Reports: Fever (Low grade x 3 days earlier this month; resolved.) and Weight gain; Denies: Chills or Diaphoresis Cardiovascular Reports: edema and shortness of breath with exertion; Denies: chest pain or palpitations Respiratory Reports: Shortness of breath, Cough and Sputum production Gastrointestinal Reports: Abdominal distention; Denies: Abdominal pain, Nausea or Vomiting Integumentary/Breast Denies: Rash Neurological Denies: Confusion Exam Exam Vital Signs: Vital Signs x48h Temp Pulse Pulse Resp BP Pulse Ox O2 Flow Rate 08/09/24 20:10 6 08/09/24 20:03 68 16 6 08/09/24 19:00 65 14 109/60 91 L 6 08/09/24 18:00 66 19 108/58 L 93 6 08/09/24 17:00 85 19 131/69 H 91 L 6 08/09/24 16:00 36.8 C 71 18 103/72 94 6 08/09/24 15:45 69 16 08/09/24 15:00 68 18 116/60 90 L 6 08/09/24 14:00 69 19 114/57 L 94 6 08/09/24 13:00 70 18 109/49 L 91 L 6 Constitutional normal general appearance and no apparent distress -No tripoding HENMT normocephalic and head/scalp atraumatic Eyes PERRL and EOMs intact bilaterally Neck/C-Spine visual inspection normal Respiratory breath sounds equal bilaterally +Expiratory wheezes diffusely +Mild crackles + Rales Exam limited due to difficulty with deep inspiration and expiration Oxymizer in place, on 9L O2 Cardiovascular no murmur and no JVD -2+ pitting edema BLE from knees to ankles -No clubbing of nails Gastrointestinal abdomen soft to palpation, nontender to palpation, nontender to percussion, normoactive bowel sounds and no ascites Neurology rehab therapist II-XII intact Psychiatry oriented x3, thought process normal and cooperative Skin no rash, no ecchymosis noted and no wounds Deformity over dorsum of left wrist, secondary to remote left wrist fracture s/p ORIF Conclusion/Plan Problem List (1) Acute respiratory failure with hypoxia and hypercarbia: Plan: -Patient has acute respiratory failure with hypoxia, likely due to new onset right sided heart failure. This is supported by BLE pitting edema, liver congestion, and ABD bloating. PEx positive for rhales, crackles, and exporiatory wheezes. CTA was negative for PE but showed pleural effusions. Additionally, Troponin slightly elevated and BNP>1000. Patient was placed on IV Lasix with improvement in LE swelling and SOB. However, patient was unable to tolerate 9L O2 without respiratory decompensation and will continue on BiPAP, which has helped stabilize RA O2 to 90-91%. Would recommend patient to transfer to post- acute care facility as she will not be fit for independent living. Patient expresses reservation as she would like to "go home and let God take care of everything." However, she will talk to her and consider her options. (2) COPD exacerbation: Plan: -She is currently on BiPAP and cannot tolerate de-escalation to 9L O2 at this time. Patient started on prophylactic azithromycin 250mg QD and steroids while inpatient. May continue maintenance for at least a month after discharge. (3) CHF (congestive heart failure): Plan: -Likely cause of acute respiratory failure. Recommend Echo to confirm R sided HF. Patient declines at this time and would not like further workup. - Qualifiers: Heart failure chronicity: acute Heart failure type: unspecified Q ualified Code(s): I50.9 - Heart failure, unspecified Lab Results Lab results reviewed: Yes 08/09/24 04:11 08/09/24 04:11 Diagnostic Imaging Results Diagnostic Imaging Results: positive Final report reviewed Diagnostic Imaging Results Comments: EXAM: [id number] XR/[id number] ([id number]) PROCEDURE: XR Chest 1V INDICATIONS: dyspnea TECHNIQUE: One view of the chest was acquired. COMPARISON: Chest radiograph 06/18/2019, CT chest without 05/01/2023. FINDINGS: Surgical changes and devices: Right shoulder arthroplasty. Lungs and pleura: Small bilateral pleural effusions, right greater than left. Similar background of interstitial opacities and emphysematous changes. Is increased opacity at the lung bases favored to represent compressive atelectasis. Mediastinum: Mediastinal contours appear normal. Heart size is normal. Bones and chest wall: No suspicious bony lesions. Overlying soft tissues appear unremarkable. IMPRESSION: Right greater than left small bilateral pleural effusions with subjacent atelectasis. Similar background of chronic interstitial and emphysematous changes. EXAM: [id number] CT/CHTANG ([id number]) PROCEDURE: CT Angio Chest INDICATIONS: dyspnea, leg swelling, hypoxia CONTRAST: 80ml omni 300 TECHNIQUE: After the administration of intravenous contrast, 2 mm axial images were acquired from the pulmonary apices to the posterior costophrenic angles during the arterial phase. In addition, 1 mm lung kernel and 5 mm soft tissue kernel reconstructions were performed. 3-dimensional coronal oblique maximum intensity projection (MIP) reformats, 8 mm axial MIP, and 5 mm coronal and sagittal MPR reformats were then performed through the thorax. For radiation dose reduction, the following was used: automated exposure control, adjustment of mA and/or kV according to patient size. COMPARISON: 05/01/2023 FINDINGS: Image quality: There is artifact associated with the metallic hardware. Large vessels: No filling defects within the opacified pulmonary arteries, accounting for motion and contrast timing. The main pulmonary artery measures 4.3 cm. No evidence of acute aortic syndrome or aortic aneurysm. Lungs and pleura: Centrilobular emphysematous changes are seen, which are more prominent at the lung apices than at the lung bases. There is a small right-sided pleural effusion and a trace left-sided pleural effusion. Overlying depending consolidation can be seen, which is associated to atelectasis. Mild ground glass opacities can be seen, with a dependent distribution. No pneumothorax is seen. Mediastinum: Dense atherosclerotic calcification can be seen of the coronary arteries. Heart size is mildly enlarged, with enlargement of the right heart. No pericardial effusion. No large vessel abnormality. A mildly enlarged precarinal lymph node is seen measuring 10 x 22 mm. Chest wall and lower neck: Thyroid is unremarkable. No axillary or supraclavicular adenopathy by size. Bones: No aggressive osseous abnormality. Age-appropriate degenerative changes are seen. There is accentuated thoracic kyphosis. Right shoulder arthroplasty hardware is seen, with associated streak artifact. Upper Abdomen: There is reflux of contrast seen into the inferior vena cava and into the hepatic veins. The visualized portions of the upper abdominal structures are otherwise within normal limits. IMPRESSION: Negative for pulmonary embolism. Pleural effusions and dependent ground glass opacities can be seen, with mild cardiomegaly and reflux of contrast into the inferior vena cava and hepatic veins. These findings are suspicious for CHF. Mildly enlarged precarinal lymph node again seen, likely reactive. Underlying emphysematous changes are seen. Additional findings: Dense coronary calcification Right shoulder arthroplasty hardware Enlarged pulmonary arteries, please consider pulmonary artery hypertension Core Measures Anticipated LOS I expect patient to be DC'd or transferred within 96 hours.: Yes DVT/VTE - Prophylaxis VTE/DVT Device ordered at admit?: Yes
--- NOTE | 2024-08-08 16:17 | PHARMACY PROGRESS NOTE ---
Best Possible Medication History Admit Date and Time: 08/08/24 [id number] Home Medications Medication Instructions Recorded Confirmed Type diltiazem HCl 240 mg See Rx Instructions .Route 0 06/09/24 08/08/24 Rx capsule,extended release 24 hr .COMPLEX #90 caps umeclidinium 62.5 mcg/actuation 1 inh PO DAILY #90 ea 06/13/24 08/08/24 Rx blister powder for inhalation (Incruse Ellipta) ropinirole 0.25 mg tablet 0.25 mg PO .COMPLEX #90 tabs 08/05/24 08/08/24 Rx aspirin 81 mg tablet,delayed 81 mg PO DAILY 08/08/24 0 08/08/24 History release (Adult Aspirin Regimen) diclofenac potassium 50 mg tablet 50 mg PO BID PRN kandi n 08/08/24 08/08/24 History diphenhydramine HCl 25 mg capsule 25 mg PO HS PRN inso mnia 08/08/24 08/08/24 History (Benadryl) omeprazole 20 mg capsule,delayed 20 mg PO DAILY 08/08/24 History release Processed by: Pharmacy Medications reviewed in ED?: Yes Medication History completed: Yes Patient Interview: Completed Secondary Source(s): Insurance records [facility] Statement: As the person ultimately responsible for medication therapy, providers are able to order a medication from an existing home medication list in [facility] via the "Reconcile Routine" prior to Confirmation of that medication by sales support advisor. Such practice is discouraged except when the physician, in their clinical judgment, deems that a medical need exists for a medication without regard to previous use.
[2024-08-08] MEDS ORDERED: DICLOFENAC POTASSIUM 50 MG PO PRN (16:56)
[2024-08-08] MEDS: SODIUM CHLORIDE FLUSH 0.9% 10 ML SYRINGE IVP SCH (18:12)
[2024-08-08] MEDS: methylPREDNISolone SUCCINATE 40 MG/ML VIAL IVP SCH (18:12)
[2024-08-08] MEDS: IPRATROPIUM 0.2 MG/ML NEB INH SCH (19:24)
[2024-08-08] MEDS: rOPINIRole 0.25 MG TABLET PO PRN (19:59)
[2024-08-08] MEDS: oxyCODONE 5 MG TABLET PO PRN (21:33)
[2024-08-09 04:27] LABS: BASOPHILS % (AUTO) 0.1 %; HCT - HEMATOCRIT 46.3 % (37.0-47.0); HGB - HEMOGLOBIN 14.8 g/dL (12.0-16.0); LYMPHOCYTES # (AUTO) 0.5 10^3/uL (1.5-3.5); LYMPHOCYTES % (AUTO) 6.1 %; MEAN CORPUSCULAR HEMOGLOBIN 29.1 pg (27.0-31.0); MEAN CORPUSCULAR VOLUME 91.1 fL (81.0-99.0); MEAN PLATELET VOLUME 9.7 fL (7.9-10.8); MONOCYTES # (AUTO) 0.1 10^3/uL (0.0-1.0); MONOCYTES % (AUTO) 1.4 %; NEUTROPHILS # (AUTO) 6.8 10^3/uL (1.5-6.6); PLT - PLATELET COUNT 269 10^3/uL (130-450); RED BLOOD COUNT 5.08 10^6/uL (4.20-5.40); RED CELL DISTRIBUTION WIDTH 15.9 % (12.0-15.0); WHITE BLOOD COUNT 7.4 x10^3/uL (4.8-10.8)
[2024-08-09 04:38] LABS: CALCIUM, IONIZED 1.21 mmol/L (1.09-1.30); VBG PH 7.254 (7.31-7.41)
[2024-08-09 04:44] LABS: CALCIUM 8.9 mg/dL (8.5-10.3); CREATININE 1.2 mg/dL (0.6-1.3); MAGNESIUM 1.9 mg/dL (1.7-2.3); PHOSPHORUS 4.6 mg/dL (2.5-5.0); POTASSIUM 4.7 mmol/L (3.5-4.5)
[2024-08-09] MEDS: PANTOPRAZOLE 40 MG TABLET PO SCH (06:08)
[2024-08-09] MEDS: SODIUM CHLORIDE FLUSH 0.9% 10 ML SYRINGE IVP SCH (06:08)
[2024-08-09] MEDS: ENOXAPARIN 40 MG/0.4 ML SYRINGE SUBQ SCH (08:35)
[2024-08-09] MEDS: ASPIRIN EC 81 MG TABLET PO SCH (08:35)
[2024-08-09] MEDS: FUROSEMIDE 40 MG/4 ML VIAL IVP SCH (09:37)
[2024-08-09] MEDS: AZITHROMYCIN INJ 250 MG in SODIUM CHLORIDE 0.9% 250 ML IV SCH (10:45)
[2024-08-09] MEDS: rOPINIRole 0.25 MG TABLET PO PRN (14:24)
--- NOTE | 2024-08-09 15:56 | PROVIDER PROGRESS NOTE ---
Subjective Prog Note Date Prog Note Date: 08/09/24 Prog Note Time: 10:30 Subjective Pt reports feeling: Improved Subjective: Patient is sitting up in a chair upon my entrance, no acute respiratory distress, on BiPAP. Patient states she is feeling better today. States SOB has improved but still persistent. States she has difficulty going to the restroom without SOB. Swelling in legs has improved and she no longer feels bloated. States she does not want to undergo further workup or treatment for CHF or COPD and would like to return home as soon as she can. Current Medications Current Medications Current Medications: Current Medications Generic Name Dose Route Start Last Admin Trade Name Freq PRN Reason Stop Dose Admin Acetaminophen 650 mg 08/08/24 13:20 Acetaminophen 325 Mg Tablet PO Q4HR PRN Pain 1 to 4, or Fever Aspirin 81 mg 08/09/24 09:00 08/09/24 08:35 Aspirin Ec 81 Mg Tablet PO 81 mg DAILY DEEPIKA Administration Diltiazem HCl 240 mg 08/08/24 13:20 08/09/24 08:35 Diltiazem Cd 240 Mg Capsule PO 240 mg DAILY DEEPIKA Administration Diphenhydramine HCl 25 mg 08/08/24 13:20 Diphenhydramine 25 Mg Capsule PO HS PRN insomnia Enoxaparin Sodium 40 mg 08/09/24 09:00 08/09/24 08:35 Enoxaparin 40 Mg/0.4 Ml Syringe SUBQ 40 mg DAILY DEEPIKA Administration Furosemide 40 mg 08/09/24 10:00 08/09/24 14:24 Furosemide 40 Mg/4 Ml Vial IVP 40 mg BIDDIURETIC DEEPIKA Administration Azithromycin 250 mg/ Sodium 250 mls @ 250 mls/hr 08/09/24 11:00 08/09/24 11:45 Chloride IV Infused 1100 DEEPIKA Infusion Ipratropium [place] 0.5 mg 08/08/24 19:00 08/09/24 15:44 Ipratropium 0.2 Mg/Ml Neb INH 0.5 mg RTQ6H DEEPIKA Administration Methylprednisolone 40 mg 08/08/24 17:00 08/09/24 14:24 Methylprednisolone Succinate 40 Mg/Ml Vial IVP 08/09/24 22:01 40 mg TID DEEPIKA Administration Ondansetron HCl 4 mg 08/08/24 13:20 Ondansetron Odt 4 Mg Tablet TL Q6HR PRN Nausea / Vomiting Ondansetron HCl 4 mg 08/08/24 13:20 Ondansetron 4 Mg/2 Ml Vial IVP Q6HR PRN Nausea / Vomiting Oxycodone HCl 5 mg 08/08/24 13:20 08/08/24 21:33 Oxycodone 5 Mg Tablet PO 5 mg Q4HR PRN Administration Pain 5 to 7 Pantoprazole Sodium 40 mg 08/09/24 07:00 08/09/24 06:08 Pantoprazole 40 Mg Tablet PO 40 mg QDAC DEEPIKA Administration Ropinirole HCl 0.25 mg 08/09/24 14:16 08/09/24 14:24 Ropinirole 0.25 Mg Tablet PO 0.25 mg 1430 PRN Administration RESTLESS LEGS Sodium Chloride 10 ml 08/08/24 13:20 Sodium Chloride Flush 0.9% 10 Ml Syringe IVP PRN PRN NEEDED PER PROVIDER ORDERS Sodium Chloride 10 ml 08/09/24 01:00 08/09/24 08:35 Sodium Chloride Flush 0.9% 10 Ml Syringe IVP 10 ml 0100,0900,1700 DEEPIKA Administration Sodium Chloride 10 ml 08/08/24 17:09 Sodium Chloride Flush 0.9% 10 Ml Syringe IVP PRN PRN NEEDED PER PROVIDER ORDERS Objective Vital Signs/Intake & Output Reviewed Vital Signs: Yes Vital Signs: Vital Signs x48h Temp Pulse Pulse Resp BP Pulse Ox O2 Flow Rate 08/09/24 15:45 69 16 08/09/24 15:00 68 18 116/60 90 L 6 08/09/24 14:00 69 19 114/57 L 94 6 08/09/24 13:00 70 18 109/49 L 91 L 6 08/09/24 12:00 36.6 C 79 16 120/60 93 8 08/09/24 11:00 79 95 H 129/68 95 8 08/09/24 10:55 8 08/09/24 10:00 78 22 133/62 H 91 L 8 08/09/24 09:00 86 17 124/72 87 L 8 08/09/24 08:46 6 08/09/24 08:00 97.6 C H 81 18 124/85 8 L Intake & Output: Intake & Output 08/06/24 08/07/24 08/08/24 08/09/24 23:59 23:59 23:59 23:59 Intake Total 888 / 888 1170 / 1170 Output Total 700 / 700 450 / 450 Balance 188 / 188 720 / 720 Weight (kg) 71.8 kg 70 kg Objective General Appearance: positive No acute distress Eyes Bilateral: positive Normal inspection, PERRL, EOMI and No scleral icterus Neck: positive Nml inspection Respiratory: positive Chest non-tender, Wheezes (Insp and Exp- Improved) and Rales Cardiovascular: positive Regular rate & rhythm, No murmur and Other (2+ edema BLE, improving. Now extends to mid calves, improved from just below knees. ) Abdomen: positive Non-tender and Nml bowel sounds Back: positive Nml inspection Skin: positive Color nml, No rash and Skin rash; negative Cyanosis Neurologic/Psychiatric: positive Oriented x3 and CN's nml (2-12) Lab Results 08/10/24 04:45 08/10/24 04:45 Other Labs: Lab Results x24hrs 08/09/24 08/08/24 Range/Units 04:11 15:11 WBC 7.4 (4.8-10.8) x10^3/uL RBC 5.08 (4.20-5.40) 10^6/uL Hgb 14.8 (12.0-16.0) g/dL Hct 46.3 (37.0-47.0) % MCV 91.1 (81.0-99.0) fL MCH 29.1 (27.0-31.0) pg MCHC 32.0 (32.0-36.0) g/dL RDW 15.9 H (12.0-15.0) % Plt Count 269 (130-450) 10^3/uL MPV 9.7 (7.9-10.8) fL Neut # (Auto) 6.8 H (1.5-6.6) 10^3/uL Lymph # (Auto) 0.5 L (1.5-3.5) 10^3/uL [place] # (Auto) 0.1 (0.0-1.0) 10^3/uL Eos # (Auto) 0.0 (0.0-0.7) 10^3/uL Baso # (Auto) 0.0 (0.0-0.1) 10^3/uL Absolute Nucleated RBC 0.00 x10^3/uL Nucleated RBC % 0.0 /100WBC VBG pH 7.254 L (7.31-7.41) Ionized Calcium 1.21 (1.09-1.30) mmol/L Sodium 130 L (135-145) mmol/L Potassium 4.7 H (3.5-4.5) mmol/L Chloride 97 L (101-111) mmol/L Carbon Dioxide 26 (21-32) mmol/L Anion Gap 7.0 (6-13) BUN 37 H (6-20) mg/dL Creatinine 1.2 (0.6-1.3) mg/dL Estimated GFR (MDRD) 44 L (>89) Glucose 206 H (74-104) mg/dL Calcium 8.9 (8.5-10.3) mg/dL Phosphorus 4.6 (2.5-5.0) mg/dL Magnesium 1.9 (1.7-2.3) mg/dL B-Natriuretic Peptide 1779 H (5-100) pg/mL Nasal Screen MRSA (PCR) NEGATIVE (NEGATIVE) ABX Reporting Has patient been on IV antibiotics over the past 48 hours?: No Assessment/Plan Problem List (1) Acute respiratory failure with hypoxia and hypercarbia: Impression: -Patient continues on BiPAP with stable O2 but has respiratory decompensation with exertion. She is unable to use the restroom or talk for long periods of time without SOB. Patient declines transfer to post acute care facility as she cannot live independently with her current status. However, she is agreeable to home health and potentially hiring a home economics expert/nurse. Patient declines any other workup at this time and would like to be sent home once stable. (2) COPD exacerbation: Impression: -O2 stats are stable at 90-91% on BiPAP. Goals to wean off BiPAP and transitioning to home oxygen therapy. May continue on maintenance azithromycin 250mg QD upon discharge. (3) CHF (congestive heart failure): Impression: -Continue to recommend Echo for standard workup of new onset HF. However, patient declines at this time. Risks of not undergoing workup or treatment for HF discussed at length with patient, who verbalizes understanding. Qualifiers: Heart failure chronicity: acute Heart failure type: unspecified Q ualified Code(s): I50.9 - Heart failure, unspecified
[2024-08-09] MEDS: SODIUM CHLORIDE FLUSH 0.9% 10 ML SYRINGE IVP PRN (21:54)
[2024-08-10 04:58] LABS: BASOPHILS % (AUTO) 0.1 %; HCT - HEMATOCRIT 42.9 % (37.0-47.0); HGB - HEMOGLOBIN 13.9 g/dL (12.0-16.0); LYMPHOCYTES # (AUTO) 0.4 10^3/uL (1.5-3.5); LYMPHOCYTES % (AUTO) 4.2 %; MEAN CORPUSCULAR HEMOGLOBIN 29.5 pg (27.0-31.0); MEAN CORPUSCULAR HGB CONC 32.4 g/dL (32.0-36.0); MEAN CORPUSCULAR VOLUME 91.1 fL (81.0-99.0); MEAN PLATELET VOLUME 9.8 fL (7.9-10.8); MONOCYTES # (AUTO) 0.3 10^3/uL (0.0-1.0); MONOCYTES % (AUTO) 2.9 %; NEUTROPHILS # (AUTO) 8.9 10^3/uL (1.5-6.6); NEUTROPHILS % (AUTO) 92.3 %; NRBC ABSOLUTE COUNT (AUTO) 0.03 x10^3/uL; NUCLEATED RED BLOOD CELLS AUTO 0.3 /100WBC; PLT - PLATELET COUNT 246 10^3/uL (130-450); RED BLOOD COUNT 4.71 10^6/uL (4.20-5.40); RED CELL DISTRIBUTION WIDTH 15.8 % (12.0-15.0); WHITE BLOOD COUNT 9.7 x10^3/uL (4.8-10.8)
[2024-08-10 05:05] LABS: CALCIUM, IONIZED 1.18 mmol/L (1.09-1.30)
[2024-08-10 05:16] LABS: CALCIUM 8.8 mg/dL (8.5-10.3); CREATININE 1.1 mg/dL (0.6-1.3); MAGNESIUM 1.9 mg/dL (1.7-2.3); PHOSPHORUS 3.8 mg/dL (2.5-5.0); POTASSIUM 4.5 mmol/L (3.5-4.5)
[2024-08-10] MEDS: SODIUM CHLORIDE FLUSH 0.9% 10 ML SYRINGE IVP PRN (06:48)
[2024-08-10] MEDS: ONDANSETRON ODT 4 MG TABLET TL PRN (10:54)
[2024-08-10 12:09] LABS: HBsAG SCREEN Negative (Negative); HCV AB Non Reactive (Non Reactive); HEPATITIS B CORE IGM AB Negative (Negative)
[2024-08-10] MEDS: IPRATROPIUM 0.2 MG/ML NEB INH SCH (14:30)
--- NOTE | 2024-08-10 15:29 | PROVIDER PROGRESS NOTE ---
Subjective Prog Note Date Prog Note Date: 08/10/24 Prog Note Time: 10:35 Subjective Pt reports feeling: Improved Subjective: Patient is sitting up in bed upon my entrance, doing a sudoku puzzle, no acute respiratory distress, on BiPAP and face mask in place with 6L O2. Patient states she continues to feel better today. SOB is much better but still has some difficulty breathing with activities such as getting up to use the restroom. Swelling in legs continue to improve. States she did not sleep well last night and felt like her restless leg kept her away. She did take her dose of ripinorole 0.25mg but admits to feeling like this dose is not effective, even at home. She also mentions her daughter may be moving to [place] with her children and may have additional help at home. Current Medications Current Medications Current Medications: Current Medications Generic Name Dose Route Start Last Admin Trade Name Freq PRN Reason Stop Dose Admin Acetaminophen 650 mg 08/08/24 13:20 Acetaminophen 325 Mg Tablet PO Q4HR PRN Pain 1 to 4, or Fever Aspirin 81 mg 08/09/24 09:00 08/10/24 08:11 Aspirin Ec 81 Mg Tablet PO 81 mg DAILY DEEPIKA Administration Azithromycin 250 mg 08/11/24 09:00 Azithromycin 250 Mg Tablet PO DAILY DEEPIKA Diltiazem HCl 240 mg 08/08/24 13:20 08/10/24 08:11 Diltiazem Cd 240 Mg Capsule PO 240 mg DAILY DEEPIKA Administration Diphenhydramine HCl 25 mg 08/08/24 13:20 Diphenhydramine 25 Mg Capsule PO HS PRN insomnia Enoxaparin Sodium 40 mg 08/09/24 09:00 08/10/24 08:11 Enoxaparin 40 Mg/0.4 Ml Syringe SUBQ 40 mg DAILY DEEPIKA Administration Furosemide 40 mg 08/09/24 10:00 08/10/24 13:15 Furosemide 40 Mg/4 Ml Vial IVP 40 mg BIDDIURETIC DEEPIKA Administration Ipratropium [place] 0.5 mg 08/10/24 14:00 08/10/24 14:30 Ipratropium 0.2 Mg/Ml Neb INH Not Given TID DEEPIKA Ondansetron HCl 4 mg 08/08/24 13:20 08/10/24 10:54 Ondansetron Odt 4 Mg Tablet TL 4 mg Q6HR PRN Administration Nausea / Vomiting Ondansetron HCl 4 mg 08/08/24 13:20 Ondansetron 4 Mg/2 Ml Vial IVP Q6HR PRN Nausea / Vomiting Oxycodone HCl 5 mg 08/08/24 13:20 08/09/24 17:42 Oxycodone 5 Mg Tablet PO 5 mg Q4HR PRN Administration Pain 5 to 7 Pantoprazole Sodium 40 mg 08/09/24 07:00 08/10/24 06:48 Pantoprazole 40 Mg Tablet PO 40 mg QDAC DEEPIKA Administration Ropinirole HCl 0.25 mg 08/09/24 14:16 08/10/24 13:15 Ropinirole 0.25 Mg Tablet PO 0.25 mg 1430 PRN Administration RESTLESS LEGS Sodium Chloride 10 ml 08/08/24 13:20 08/10/24 06:48 Sodium Chloride Flush 0.9% 10 Ml Syringe IVP 10 ml PRN PRN Administration NEEDED PER PROVIDER ORDERS Sodium Chloride 10 ml 08/09/24 01:00 08/10/24 08:12 Sodium Chloride Flush 0.9% 10 Ml Syringe IVP 10 ml 0100,0900,1700 DEEPIKA Administration Sodium Chloride 10 ml 08/08/24 17:09 08/10/24 06:48 Sodium Chloride Flush 0.9% 10 Ml Syringe IVP 10 ml PRN PRN Administration NEEDED PER PROVIDER ORDERS Objective Vital Signs/Intake & Output Reviewed Vital Signs: Yes Vital Signs: Vital Signs x48h Temp Pulse Resp BP Pulse Ox O2 Flow Rate 08/10/24 15:00 63 15 94 6 08/10/24 14:00 65 18 118/63 91 L 6 08/10/24 13:00 69 20 108/73 92 8 08/10/24 12:21 89 L 8 08/10/24 12:18 85 L 6 08/10/24 12:00 36.6 C 79 24 104/59 L 89 L 6 08/10/24 11:00 72 18 121/58 L 89 L 6 08/10/24 10:56 91 L 6 08/10/24 10:00 78 23 128/66 91 L 6 08/10/24 09:00 79 18 115/65 91 L 10 08/10/24 08:00 36.4 C L 76 18 126/82 93 6 Intake & Output: Intake & Output 08/07/24 08/08/24 08/09/24 08/10/24 23:59 23:59 23:59 23:59 Intake Total 888 / 888 1410 / 1410 970 / 970 Output Total 700 / 700 835 / 835 1425 / 1425 Balance 188 / 188 575 / 575 -455 / -455 Weight (kg) 71.8 kg 70 kg 71 kg Objective General Appearance: positive No acute distress Eyes Bilateral: positive Normal inspection, PERRL, EOMI and No scleral icterus Neck: positive Nml inspection Respiratory: positive Chest non-tender, Wheezes (Insp and Exp- mildly improved from yesterday. ) and Rales Cardiovascular: positive Regular rate & rhythm, No murmur and Other (2+ edema BLE, improving. Now extends to mid calves, improved from just below knees. ) Abdomen: positive Non-tender and Nml bowel sounds Back: positive Nml inspection Skin: positive Color nml and No rash; negative Cyanosis Neurologic/Psychiatric: positive Oriented x3 and CN's nml (2-12) Lab Results 08/10/24 04:45 08/10/24 04:45 Other Labs: Lab Results x24hrs 08/10/24 08/09/24 Range/Units 04:45 04:11 WBC 9.7 (4.8-10.8) x10^3/uL RBC 4.71 (4.20-5.40) 10^6/uL Hgb 13.9 (12.0-16.0) g/dL Hct 42.9 (37.0-47.0) % MCV 91.1 (81.0-99.0) fL MCH 29.5 (27.0-31.0) pg MCHC 32.4 (32.0-36.0) g/dL RDW 15.8 H (12.0-15.0) % Plt Count 246 (130-450) 10^3/uL MPV 9.8 (7.9-10.8) fL Neut # (Auto) 8.9 H (1.5-6.6) 10^3/uL Lymph # (Auto) 0.4 L (1.5-3.5) 10^3/uL [place] # (Auto) 0.3 (0.0-1.0) 10^3/uL Eos # (Auto) 0.0 (0.0-0.7) 10^3/uL Baso # (Auto) 0.0 (0.0-0.1) 10^3/uL Absolute Nucleated RBC 0.03 x10^3/uL Nucleated RBC % 0.3 /100WBC VBG pH 7.330 (7.31-7.41) Ionized Calcium 1.18 (1.09-1.30) mmol/L Sodium 130 L (135-145) mmol/L Potassium 4.5 (3.5-4.5) mmol/L Chloride 98 L (101-111) mmol/L Carbon Dioxide 26 (21-32) mmol/L Anion Gap 6.0 (6-13) BUN 35 H (6-20) mg/dL Creatinine 1.1 (0.6-1.3) mg/dL Estimated GFR (MDRD) 48 L (>89) Glucose 159 H (74-104) mg/dL Calcium 8.8 (8.5-10.3) mg/dL Phosphorus 3.8 (2.5-5.0) mg/dL Magnesium 1.9 (1.7-2.3) mg/dL B-Natriuretic Peptide 1195 H (5-100) pg/mL Hepatitis A IgM Ab Negative (Negative) Hep Bs Antigen Negative (Negative) Hep B Core IgM Ab Negative (Negative) Hepatitis C Antibody Non Reactive (Non Reactive) Hepatitis C Interp Comment (.) ABX Reporting Has patient been on IV antibiotics over the past 48 hours?: No Assessment/Plan Problem List (1) Acute respiratory failure with hypoxia and hypercarbia: Impression: -Patient still on BiPAP and between 6-10L O2 with face mask. She is able to make full sentences but will have respiratory decompensation after a few minutes of consistent conversation. She is still unable to use the restroom or talk for long periods of time without SOB. RA O2 is currently stable around 94%. BP has been stable with normal HR. Patient still agreeable to home health and may have her daughter in [place] to help at home. Again, discussed with patient timeline without further intervention and advanced care planning. (2) COPD exacerbation: Impression: -See above. Goals still to wean off BiPAP and transitioning to home oxygen therapy. May continue on maintenance azithromycin 250mg QD upon discharge. (3) CHF (congestive heart failure): Impression: -Continue to recommend Echo for standard workup of new onset HF. However, patient still declines at this time. She still understands risks of not undergoing workup or treatment for HF. Qualifiers: Heart failure chronicity: acute Heart failure type: unspecified Q ualified Code(s): I50.9 - Heart failure, unspecified (4) Restless leg syndrome: Impression: -Patient with trouble sleeping due to restless leg. Will trial patient on increased dose of ropinirole 0.5mg approximately 90 minutes before sleeping.
--- NOTE | 2024-08-10 17:01 | Ultrasound Report ---
PROCEDURE: US Abdomen Complete INDICATIONS: ELEVATED LIVER ENZYMES, PLEURAL EFFUSION TECHNIQUE: Real-time scanning was performed of the abdominal and retroperitoneal organs, with image documentation. COMPARISON: CTA chest 08/08/2024. FINDINGS: Liver: Liver is normal in size.. Liver appears mildly heterogeneous with suspected surface nodularity. Pulsatile flow is seen in the main portal vein. Gallbladder: Status post cholecystectomy. Biliary ducts: Intrahepatic bile ducts are non-dilated. Extrahepatic bile duct caliber measures 6 mm. Normal is 6-7 mm or less in diameter, or 10 mm or less post-cholecystectomy. Pancreas: Visualized portions of the pancreas are sonographically normal. Spleen: Spleen is normal in size and homogeneous in echotexture. Kidneys: Kidneys are normal in size and echotexture. Right kidney measures 9.1 cm long; left kidney measures 10.9 cm long. No hydronephrosis or nephrolithiasis. No solid masses. No complex renal cystic lesions which require follow-up. Aorta: Visualized aorta is normal in caliber. Iliacs: Proximal common iliac arteries are normal in caliber. IVC: Intrahepatic inferior vena cava is patent. Miscellaneous: Trace free fluid in the upper abdomen. Known pleural effusions are not well seen. IMPRESSION: 1.Mildly heterogeneous appearance of liver with suspected surface nodularity, suspicious for mild or early cirrhotic changes. 2.Pulsatile flow in the main portal vein can be seen with portal hypertension. 3.Trace upper abdominal ascites. Reviewed by: Car Raymundo MD on 08/10/2024 4:59 PM PDT Approved by: Car Raymundo MD on 08/10/2024 4:59 PM PDT Station ID: [id number]
--- NOTE | 2024-08-10 18:30 | ADVANCE CARE PLANNING NOTE ---
Advance Care Planning Planning Encounter Date: 08/10/24 Time: 18:28 Purpose: Establish care goals and we discussed CODE STATUS Parties in Attendance: Hospitalist and patient Decisional Capacity of the Patient: Alert and oriented to person, place, time and situation. She is still considered herself decisional. Encounter Subjective/Patient's Story: This patient lives in her own home with her . She is to her second . She has a history of alcohol abuse but her last severe drinking was in 2013. She has no history of cirrhosis as far she knows. Mom was actually living with him until last year. She was in her 90s and a year ago today. She has 3 children. But 1 child was adopted out because she was unmarried. Her 2 other children are healthy. 1 daughter lives in [place]. That daughter recently lost her . So her daughter [place] thinking [place]. The patient states that she says she had a pretty good life in spite of her gradually progressive emphysema. She still drives a car and goes to [employer]. Goes out to lunch with girlfriends. Tries to go to adventist. She has her hobbies and the relatively sedentary but she is able to accomplish them. She feels very contented in life. She has noticed that her COPD has become progressive enough that a year ago she started feeling like maybe she should think about the future with regards to end-of-life. She is having less and less endurance. More more fatigue. And even though the quality of her life is still quite good, she worries about the future and losing her quality of life. She says that she already has a POLST form but she cannot remember where it is. She is a DO NOT RESUSCITATE. Her DURABLE POWER OF STRUCTURAL ARCHITECT is her . She says that he still has good cognitive function and she trust his opinion. She and he had been talking about her changes and he is aware of what she is thinking. She would like me to arrange for a hospice informational visit. She knows that she never wants to go to a [facility] but recognizes she is very weak and deconditioned right now. She would like to go home with home health. She would like to try and recover some of her loss function. But if she is not able to recover that lost function, she would like to transition to hospice. Objective/Medical Story: This is a pleasant 79 year old female with PMHx of COPD and >100 pack year histo ry who presents for admission due to COPD exacerbation and new onset CHF. Patient reports she has been having worsening SOB and LE swelling in the last month, worse in the last night, prompting her to present to the ED. States she had about 3 days of a low grade fever last month, which resolved. Denies weight loss, noting weight gain in the last few days. Denies night sweats, chills. Reports difficulty walking due to leg swelling. States she has a chronic cough, which has been worse the last month. Reports sputum production, which is clear. Denies any changes in SOB with position but worse with exertion such as talking. States she lives with , denies recent sick contacts. Denies rash, new bruising. States she has been feeling bloated the last month but denies any ABD pain, N/V, changes in bowel habits. States she has been smoking less than half pack per day the last 3-4 years, down from 2 PPD since age 22 years old. Reports alcohol cessation 11 years ago, admitting to alcohol abuse since age 21. Denies recent travel, history of hepatitis infection. Denies chest pain, heart palpitations. Denies new confusion or changes in mentation. Only taking Diltiazem 240mg ER QD at home. Denies any rescue inhalers, LABAs, home O2, or home nebulizer treatments. Patient was given duoneb and 125mg IV solu-medrol by EMS with improvement from 80% to 93% Pulse Ox RA. She was then placed on 15 l/min NRB but changed to BiPAP due to decreasing pulse ox. She was transitioned to Oxymizer at 9L once she had stabilization of O2 to 88%. Patient given IV Lasix with improvement in LE swelling and continues on nebulizer treatments. 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 Fiberoptic flex laryngoscopy nml. Told to stop smokingHistory of alcohol abuse started drinking age 21, stopped 2013.Cervical stenosis of spine MRI 11/04/23GERD (gastroesophageal reflux disease) EGD 2014 with severe gastropathy and distal esophagitisShoulder arthralgia R humeral head resurfacing 2014Intertrochanteric fracture of femur w fall and 06/2013 ORIFWrist fracture ORIF w deformed L wrist, she did it after fallMultiparous . one miscarriage.COPD (chronic obstructive pulmonary disease) FVC (128%) FEV1 2.52 (121%) FEV1/FVC 68%, VC 2.9 (129%), DLCO 8.5 (45%). Minimal obstructive lung defect. More detailed pulmonary function requested. Moderate decrease in diffusion capacity. Insignificant response to bronchodilator.Hypertension COPD (chronic obstructive pulmonary disease) She has been here since August 08. She is received IV antibiotics, steroids, nebulizer treatment. Treated gingerly for CHF because of mildly elevated BNP and pleural effusion. But we do not have any echo and that scan to be available today. Goals of Care: . To transition to end-of-life when the time comes with proactive planning Plan: 1. I will fill out a POLST form with her tonight to make sure we have a copy in the chart 2. Hospice informational visit tomorrow 3. She is willing to stay with us a few more days until we can get her off her high oxygen requirement. She is currently on 8 L/min of an Oxymizer and saturating at 93%. She is not usually on home O2. I would like her to get to below 4 L nasal cannula. When she can do that, she could go home. With home health. Followed by hospice if there is failure to thrive. 4. She reassures me that she has had all of his conversation with her . But I told her to make sure that her knows and her daughter knows. She was going to be relying on her daughter when her daughter moved out to do some caregiving with her . They are also considering hiring her at some help. Code Status: Do Not Attempt Resuscitation Time spent on advance care plannin minutes
[2024-08-10] MEDS: rOPINIRole 0.25 MG TABLET PO PRN (19:28)
[2024-08-11 05:09] LABS: BASOPHILS % (AUTO) 0.1 %; HCT - HEMATOCRIT 42.7 % (37.0-47.0); HGB - HEMOGLOBIN 13.6 g/dL (12.0-16.0); LYMPHOCYTES # (AUTO) 0.5 10^3/uL (1.5-3.5); LYMPHOCYTES % (AUTO) 4.5 %; MEAN CORPUSCULAR HEMOGLOBIN 29.1 pg (27.0-31.0); MEAN CORPUSCULAR HGB CONC 31.9 g/dL (32.0-36.0); MEAN CORPUSCULAR VOLUME 91.4 fL (81.0-99.0); MEAN PLATELET VOLUME 9.4 fL (7.9-10.8); MONOCYTES # (AUTO) 0.6 10^3/uL (0.0-1.0); MONOCYTES % (AUTO) 5.3 %; NEUTROPHILS # (AUTO) 9.3 10^3/uL (1.5-6.6); NEUTROPHILS % (AUTO) 89.8 %; NRBC ABSOLUTE COUNT (AUTO) 0.07 x10^3/uL; NUCLEATED RED BLOOD CELLS AUTO 0.7 /100WBC; PLT - PLATELET COUNT 250 10^3/uL (130-450); RED BLOOD COUNT 4.67 10^6/uL (4.20-5.40); RED CELL DISTRIBUTION WIDTH 15.8 % (12.0-15.0); WHITE BLOOD COUNT 10.3 x10^3/uL (4.8-10.8)
[2024-08-11 05:21] LABS: CALCIUM 8.6 mg/dL (8.5-10.3); CREATININE 0.9 mg/dL (0.6-1.3); MAGNESIUM 1.8 mg/dL (1.7-2.3); PHOSPHORUS 3.4 mg/dL (2.5-5.0); POTASSIUM 4.1 mmol/L (3.5-4.5)
[2024-08-11 05:40] LABS: CALCIUM, IONIZED 1.14 mmol/L (1.09-1.30)
[2024-08-11] MEDS: MAGNESIUM OXIDE 400 MG TABLET PO SCH (08:22)
[2024-08-11] MEDS: AZITHROMYCIN 250 MG TABLET PO SCH (08:22)
--- NOTE | 2024-08-11 10:12 | PROVIDER PROGRESS NOTE ---
Subjective Subjective Subjective: Patient states that she is feeling better today. She still has some mild shortness of breath, but it is improved from admission. She has a dry cough. She denies any fevers or chills. She feels like her legs are swollen. She does not recall being told that she has heart failure in the past. She was previously on a diuretic, but was told she had a low sodium, and as such it was stopped. Previously, she had indicated that she was interested in a hospice informational. However at this time, she does not want that. She has a longstanding history of COPD. She is still smoking about 4 cigarettes a day. Her smokes as well, they both smoke in the house. She states that she will be quitting when she gets home. She ambulates independently at baseline, and is able to drive on her own. She has never been on home oxygen before. Her daughter lives in [place], and is planning on moving down to [place] to help them both out. We talked about possible rehab placement after PT evaluation likely tomorrow. She would not like rehab, but is open to it if that is what is recommended. Current Medications Current Medications Current Medications: Current Medications Generic Name Dose Route Start Last Admin Trade Name Freq PRN Reason Stop Dose Admin Acetaminophen 650 mg 08/08/24 13:20 Acetaminophen 325 Mg Tablet PO Q4HR PRN Pain 1 to 4, or Fever Aspirin 81 mg 08/09/24 09:00 08/11/24 08:22 Aspirin Ec 81 Mg Tablet PO 81 mg DAILY DEEPIKA Administration Azithromycin 250 mg 08/11/24 09:00 08/11/24 08:22 Azithromycin 250 Mg Tablet PO 250 mg DAILY DEEPIKA Administration Diltiazem HCl 240 mg 08/08/24 13:20 08/11/24 08:21 Diltiazem Cd 240 Mg Capsule PO 240 mg DAILY DEEPIKA Administration Diphenhydramine HCl 25 mg 08/08/24 13:20 Diphenhydramine 25 Mg Capsule PO HS PRN insomnia Enoxaparin Sodium 40 mg 08/09/24 09:00 08/11/24 08:21 Enoxaparin 40 Mg/0.4 Ml Syringe SUBQ 40 mg DAILY DEEPIKA Administration Furosemide 40 mg 08/09/24 10:00 08/11/24 06:26 Furosemide 40 Mg/4 Ml Vial IVP 40 mg BIDDIURETIC DEEPIKA Administration Ipratropium [place] 0.5 mg 08/10/24 14:00 08/11/24 07:08 Ipratropium 0.2 Mg/Ml Neb INH 0.5 mg TID DEEPIKA Administration Magnesium Oxide 400 mg 08/11/24 09:00 08/11/24 08:22 Magnesium Oxide 400 Mg Tablet PO 08/11/24 15:01 400 mg Q6H DEEPIKA Administration Protocol Ondansetron HCl 4 mg 08/08/24 13:20 08/10/24 10:54 Ondansetron Odt 4 Mg Tablet TL 4 mg Q6HR PRN Administration Nausea / Vomiting Ondansetron HCl 4 mg 08/08/24 13:20 Ondansetron 4 Mg/2 Ml Vial IVP Q6HR PRN Nausea / Vomiting Oxycodone HCl 5 mg 08/08/24 13:20 08/09/24 17:42 Oxycodone 5 Mg Tablet PO 5 mg Q4HR PRN Administration Pain 5 to 7 Pantoprazole Sodium 40 mg 08/09/24 07:00 08/11/24 06:26 Pantoprazole 40 Mg Tablet PO 40 mg QDAC DEEPIKA Administration Ropinirole HCl 0.5 mg 08/10/24 15:32 08/10/24 19:28 Ropinirole 0.25 Mg Tablet PO 0.5 mg 1430 PRN Administration RESTLESS LEGS Sodium Chloride 10 ml 08/08/24 13:20 08/11/24 06:26 Sodium Chloride Flush 0.9% 10 Ml Syringe IVP 10 ml PRN PRN Administration NEEDED PER PROVIDER ORDERS Sodium Chloride 10 ml 08/09/24 01:00 08/11/24 08:22 Sodium Chloride Flush 0.9% 10 Ml Syringe IVP 10 ml 0100,0900,1700 DEEPIKA Administration Sodium Chloride 10 ml 08/08/24 17:09 08/10/24 06:48 Sodium Chloride Flush 0.9% 10 Ml Syringe IVP 10 ml PRN PRN Administration NEEDED PER PROVIDER ORDERS Objective Vital Signs/Intake & Output Reviewed Vital Signs: Yes Vital Signs: Vital Signs x48h Temp Pulse Pulse Resp BP Pulse Ox O2 Flow Rate 08/11/24 10:00 75 27 H 134/69 H 89 L 5 08/11/24 09:35 93 5 08/11/24 09:00 81 24 136/66 H 89 L 6 08/11/24 08:00 97.7 F 78 16 136/79 H 88 L 5 08/11/24 07:10 7 08/11/24 07:10 72 16 7 08/11/24 07:00 74 18 138/68 H 86 L 8 08/11/24 06:00 97.9 F 73 16 93/68 91 L 8 08/11/24 05:00 78 19 123/74 89 L 8 08/11/24 04:00 74 17 120/68 90 L 8 08/11/24 03:00 79 19 121/42 L 89 L 8 Intake & Output: Intake & Output 08/08/24 08/09/24 08/10/24 08/11/24 23:59 23:59 23:59 23:59 Intake Total 888 / 888 1410 / 1410 1720 / 1720 490 / 490 Output Total 700 / 700 835 / 835 2475 / 2475 1575 / 1575 Balance 188 / 188 575 / 575 -755 / -755 -1085 / -1085 Weight (kg) 71.8 kg 70 kg 71 kg 72 kg Objective General Appearance: positive No acute distress Eyes Bilateral: positive Normal inspection, PERRL, EOMI and No scleral icterus Neck: positive Nml inspection Respiratory: positive Chest non-tender, Wheezes (Insp and Exp- mildly improved from yesterday. ) and Rales Cardiovascular: positive Regular rate & rhythm, No murmur and Other (2+ edema BLE, improving. Now extends to mid calves, improved from just below knees. ) Abdomen: positive Non-tender and Nml bowel sounds Back: positive Nml inspection Skin: positive Color nml and No rash; negative Cyanosis Neurologic/Psychiatric: positive Oriented x3 and CN's nml (2-12) Lab Results 08/11/24 04:56 08/11/24 04:56 Other Labs: Lab Results x24hrs 08/11/24 08/09/24 Range/Units 04:56 04:11 WBC 10.3 (4.8-10.8) x10^3/uL RBC 4.67 (4.20-5.40) 10^6/uL Hgb 13.6 (12.0-16.0) g/dL Hct 42.7 (37.0-47.0) % MCV 91.4 (81.0-99.0) fL MCH 29.1 (27.0-31.0) pg MCHC 31.9 L (32.0-36.0) g/dL RDW 15.8 H (12.0-15.0) % Plt Count 250 (130-450) 10^3/uL MPV 9.4 (7.9-10.8) fL Neut # (Auto) 9.3 H (1.5-6.6) 10^3/uL Lymph # (Auto) 0.5 L (1.5-3.5) 10^3/uL [place] # (Auto) 0.6 (0.0-1.0) 10^3/uL Eos # (Auto) 0.0 (0.0-0.7) 10^3/uL Baso # (Auto) 0.0 (0.0-0.1) 10^3/uL Absolute Nucleated RBC 0.07 x10^3/uL Nucleated RBC % 0.7 /100WBC VBG pH 7.380 (7.31-7.41) Ionized Calcium 1.14 (1.09-1.30) mmol/L Sodium 132 L (135-145) mmol/L Potassium 4.1 (3.5-4.5) mmol/L Chloride 98 L (101-111) mmol/L Carbon Dioxide 29 (21-32) mmol/L Anion Gap 5.0 L (6-13) BUN 29 H (6-20) mg/dL Creatinine 0.9 (0.6-1.3) mg/dL Estimated GFR (MDRD) 61 L (>89) Glucose 131 H (74-104) mg/dL Calcium 8.6 (8.5-10.3) mg/dL Phosphorus 3.4 (2.5-5.0) mg/dL Magnesium 1.8 (1.7-2.3) mg/dL B-Natriuretic Peptide 1507 H (5-100) pg/mL Hepatitis A IgM Ab Negative (Negative) Hep Bs Antigen Negative (Negative) Hep B Core IgM Ab Negative (Negative) Hepatitis C Antibody Non Reactive (Non Reactive) Hepatitis C Interp Comment (.) ABX Reporting Has patient been on IV antibiotics over the past 48 hours?: No Assessment/Plan Problem List (1) Acute respiratory failure with hypoxia and hypercarbia: Impression: Patient was requiring BiPAP on admission. Now on 6 L nasal cannula. Longstanding history of COPD, so oxygen saturation goals between 88 to 92%. CTA was done on 08/08 which was negative for pulmonary embolism, but did show pleural effusions and groundglass opacities with mild cardiomegaly. Underlying emphysematous changes were also noted. Continue aggressive IV diuresis with Lasix 40 mg twice daily. Her creatinine has been stable, and within normal limits. Her BNP was elevated on admission. Echo has been ordered, remains pending. (2) COPD exacerbation: Impression: Continue chronic azithromycin therapy. Continue to wean oxygen as tolerated. Last wheezing, more crackles noted. Likely a CHF exacerbation at this time. (3) CHF (congestive heart failure): Impression: Echo completed, awaiting read. Qualifiers: Heart failure chronicity: acute Heart failure type: unspecified Q ualified Code(s): I50.9 - Heart failure, unspecified (4) Restless leg syndrome: Impression: Patient with trouble sleeping due to restless leg. Will trial patient on increased dose of ropinirole 0.5mg approximately 90 minutes before sleeping.
--- NOTE | 2024-08-11 13:12 | ECHO Report ---
Version: 1 Study ID: [id number] [id number] Adult Echocardiogram Report Name: YONI BARKER Study Date: 08/11/2024, 9: 17 AM BP: 136 / 66 mmHg Patient Location: ICU^2304^01 HR: 82 bpm : 1945 (MM/DD/YYYY) Gender: Female Height: 64 in Age: 79 Years Weight: 158.733 lb Reason For Study: new chf History: New CHF - acute respiratory failure with hypoxia and hypercarbia, COPD exacerbation Procedure: A complete two-dimensional transthoracic echocardiogram was performed (2D, M- mode, Doppler and color flow Doppler). The study was done with the patient in the supine position, due to inability to lie on the left side. Breathing supplemental oxygen. Interpretation Summary Global left ventricular systolic function is normal. The visual left ventricular ejection fraction is estimated at 55 to 60%. The right ventricle is severely dilated. The right ventricular systolic function is severely decreased. Moderate tricuspid regurgitation present. Severe PHTN 60 - 65mmHg. Left Ventricle: The left ventricle is normal in size. There is normal left ventricular wall thickness. Global left ventricular systolic function is normal. The visual left ventricular ejection fraction is estimated at 55 to 60%. The interventricular septum is flattened in systole consistent with right ventricular pressure overload. The LV tissue Doppler velocities were obtained from the lateral wall only, due to paradoxical motion of the interventricular septum. Right Ventricle: The right ventricle is severely dilated. The right ventricular systolic function is severely decreased. The right ventricular fractional area change (FAC) is 19%. Aortic Valve: The aortic valve is trileaflet. The aortic valve is normal in structure and function. No aortic regurgitation is present. Mitral Valve: The mitral valve leaflets appear thickened, but with normal motion. No evidence of mitral stenosis is seen. There is trace mitral regurgitation. Tricuspid Valve: The tricuspid valve annulus is severely enlarged. The tricuspid valve leaflets are mildly thickened. There is no tricuspid stenosis. Moderate tricuspid regurgitation present. Pulmonic Valve: The pulmonic valve is normal in structure and function. Mild pulmonic valvular regurgitation is present. Left Atrium: The left atrium is mildly dilated. The left atrial volume indexed to body surface area is 36 ml/m2. This refers to the maximal volume measured prior to mitral valve opening. Right Atrium: The right atrium is severely dilated. The inferior vena cava is mildly dilated with mildly decreased collapse with sniff (estimated right atrial pressure 10-15mmHg). Atrial Septum: The interatrial septum appears normal, without evidence of shunt by 2D imaging and color Doppler. Aorta: The ascending aorta is normal in size. The diameter of the ascending aorta is 3.4 cm. The sinuses of Valsalva are normal in size. The aorta at the sinus of Valsalva measures 3.3cm. Pulmonary Artery: The pulmonary artery systolic pressure, calculated from a peak tricuspid regurgitant velocity in conjunction with an estimated right atrial pressure, is 60 - 65mmHg. The pulmonary artery systolic pressure is severely increased. Notching of the right ventricular outflow Doppler profile is present and indicative of elevated pulmonary vascular resistance. Pulmonary hypertension is present. Pericardium/Pleural Space: There is no pericardial effusion. CPT Codes: 17031/[id number]: Transthoracic Echo with Spectral and Color Doppler. Doppler Measurements & Calculations Ao max P.2 mmHg Ao V2 max: 134.5 cm/sec LV V1 max: 120.6 cm/sec LV V1 max P.8 mmHg LV V1 mean: 83.9 cm/sec LV V1 mean P.2 mmHg LV V1 VTI: 24.6 cm MV A max brennan: 83.0 cm/sec MV dec time: 0.27 sec MV DVI-pr: 0.63 MV E max brennan: 51.9 cm/sec PA max P.5 mmHg PA V2 max: 79.6 cm/sec RAP systole: 15.0 mmHg TR max P.4 mmHg TR max brennan: 355.0 cm/sec MMode/2D Measurements & Calculations Ao root diam: 3.3 cm EF (est.): 78.3 % ESV(sp4-el): 63.9 ml Heart Rate: 82.0 BPM Height (metric): 162.6 cm IVSd: 0.90 cm LA A4C-A/L: 20.8 cm² LA dimension: 5.7 cm LA ESV-A/L: 62.5 ml LAV(MOD-sp2): 58.1 ml LAV(MOD-sp4): 61.0 ml LVIDd: 3.7 cm LVIDs: 2.01 cm LVPWd: 0.89 cm RV CORTEZ: 28.5 cm² RV JESI: 23.0 cm² RV FAC: 19.4 % Systolic Pressure: 136.0 mmHg Other Measurements & Calculations Ao root diam: 3.3 cm Ao V2 max: 134.5 cm/sec BMI: 27.2 kilograms/m² BSA: 1.77 m² BSA([facility]): 1.82 m² Diastolic Pressure: 66.0 mmHg EDV(Teich): 59.0 ml EF (est.): 78.3 % EF(Teich): 78.3 % ESV(sp4-el): 63.9 ml ESV(Teich): 12.8 ml FS: 46.1 % Heart Rate: 82.0 BPM Height (metric): 162.6 cm IVSd: 0.90 cm LA A4C-A/L: 20.8 cm² LA dimension: 5.7 cm LA ESV-A/L: 62.5 ml LAV(MOD-sp2): 58.1 ml LAV(MOD-sp4): 61.0 ml LV V1 max: 120.6 cm/sec LV V1 mean: 83.9 cm/sec LV V1 mean P.2 mmHg LVIDd: 3.7 cm LVIDs: 2.01 cm LVPWd: 0.89 cm MV A max brennan: 83.0 cm/sec MV dec time: 0.27 sec MV DVI-pr: 0.63 MV E max brennan: 51.9 cm/sec MV E/A: 0.63 PA max P.5 mmHg PA V2 max: 79.6 cm/sec RAP systole: 15.0 mmHg RV CORTEZ: 28.5 cm² RV JESI: 23.0 cm² RV FAC: 19.4 % RVSP(TR): 65.4 mmHg Systolic Pressure: 136.0 mmHg TR max P.4 mmHg TR max brennan: 355.0 cm/sec TV max P.4 mmHg Weight (metric): 72.0 kg Lat E/e': 8.3 Med E/e': 11.7 EF(sp-el): 50.0 % MD Manuela Quiroz 08/11/2024, 1: 11 PM Ordering Physician: Ailin George Referring Physician: Josh Houser Performed By: Ayana Gomez RDCS
[2024-08-11] MEDS: SODIUM CHLORIDE 0.65% NASAL SPRAY NAS PRN (18:06)
[2024-08-11] MEDS: IPRATROPIUM 0.2 MG/ML NEB INH SCH (19:12)
[2024-08-11] MEDS: diphenhydrAMINE 25 MG CAPSULE PO PRN (20:47)
[2024-08-11] MEDS: SENNA 8.6 MG TABLET PO SCH (20:47)
[2024-08-12 04:45] LABS: BASOPHILS % (AUTO) 0.1 %; EOSINOPHILS # (AUTO) 0.1 10^3/uL (0.0-0.7); EOSINOPHILS % (AUTO) 0.8 %; HCT - HEMATOCRIT 41.6 % (37.0-47.0); HGB - HEMOGLOBIN 13.2 g/dL (12.0-16.0); LYMPHOCYTES # (AUTO) 1.2 10^3/uL (1.5-3.5); LYMPHOCYTES % (AUTO) 16.4 %; MEAN CORPUSCULAR HEMOGLOBIN 28.9 pg (27.0-31.0); MEAN CORPUSCULAR HGB CONC 31.7 g/dL (32.0-36.0); MEAN PLATELET VOLUME 9.6 fL (7.9-10.8); MONOCYTES # (AUTO) 0.5 10^3/uL (0.0-1.0); MONOCYTES % (AUTO) 6.1 %; NEUTROPHILS # (AUTO) 5.6 10^3/uL (1.5-6.6); NEUTROPHILS % (AUTO) 76.3 %; NRBC ABSOLUTE COUNT (AUTO) 0.04 x10^3/uL; NUCLEATED RED BLOOD CELLS AUTO 0.5 /100WBC; PLT - PLATELET COUNT 244 10^3/uL (130-450); RED BLOOD COUNT 4.57 10^6/uL (4.20-5.40); RED CELL DISTRIBUTION WIDTH 15.8 % (12.0-15.0); WHITE BLOOD COUNT 7.4 x10^3/uL (4.8-10.8)
[2024-08-12 04:49] LABS: CALCIUM, IONIZED 1.08 mmol/L (1.09-1.30); VBG PH 7.494 (7.31-7.41)
[2024-08-12 05:03] LABS: MAGNESIUM 1.7 mg/dL (1.7-2.3)
[2024-08-12 05:34] LABS: CALCIUM 8.1 mg/dL (8.5-10.3); CREATININE 0.8 mg/dL (0.6-1.3); POTASSIUM 3.9 mmol/L (3.5-4.5)
--- NOTE | 2024-08-12 13:34 | PROVIDER PROGRESS NOTE ---
Subjective Subjective Subjective: Patient states that she is feeling better today. She still has some mild shortness of breath, but it is improved from admission. She has a dry cough. She denies any fevers or chills. She feels like her legs are swollen. She does not recall being told that she has heart failure in the past. She was previously on a diuretic, but was told she had a low sodium, and as such it was stopped. Previously, she had indicated that she was interested in a hospice informational. However at this time, she does not want that. She has a longstanding history of COPD. She is still smoking about 4 cigarettes a day. Her smokes as well, they both smoke in the house. She states that she will be quitting when she gets home. She ambulates independently at baseline, and is able to drive on her own. She has never been on home oxygen before. Her daughter lives in [place], and [place] planning [place] help them both out. We talked about possible rehab placement after PT evaluation likely tomorrow. She would not like rehab, but is open to it if that is what is recommended. Current Medications Current Medications Current Medications: Current Medications Generic Name Dose Route Start Last Admin Trade Name Freq PRN Reason Stop Dose Admin Acetaminophen 650 mg 08/08/24 13:20 Acetaminophen 325 Mg Tablet PO Q4HR PRN Pain 1 to 4, or Fever Aspirin 81 mg 08/09/24 09:00 08/12/24 09:03 Aspirin Ec 81 Mg Tablet PO 81 mg DAILY DEEPIKA Administration Azithromycin 250 mg 08/11/24 09:00 08/12/24 09:02 Azithromycin 250 Mg Tablet PO 250 mg DAILY DEEPIKA Administration Diltiazem HCl 240 mg 08/08/24 13:20 08/12/24 09:02 Diltiazem Cd 240 Mg Capsule PO 240 mg DAILY DEEPIKA Administration Diphenhydramine HCl 25 mg 08/08/24 13:20 08/11/24 20:47 Diphenhydramine 25 Mg Capsule PO 25 mg HS PRN Administration insomnia Enoxaparin Sodium 40 mg 08/09/24 09:00 08/12/24 09:02 Enoxaparin 40 Mg/0.4 Ml Syringe SUBQ 40 mg DAILY DEEPIKA Administration Furosemide 40 mg 08/09/24 10:00 08/12/24 05:40 Furosemide 40 Mg/4 Ml Vial IVP 40 mg BIDDIURETIC DEEPIKA Administration Ipratropium [place] 0.5 mg 08/11/24 18:20 08/12/24 13:08 Ipratropium 0.2 Mg/Ml Neb INH 0.5 mg RTTID DEEPIKA Administration Ondansetron HCl 4 mg 08/08/24 13:20 08/10/24 10:54 Ondansetron Odt 4 Mg Tablet TL 4 mg Q6HR PRN Administration Nausea / Vomiting Ondansetron HCl 4 mg 08/08/24 13:20 Ondansetron 4 Mg/2 Ml Vial IVP Q6HR PRN Nausea / Vomiting Oxycodone HCl 5 mg 08/08/24 13:20 08/09/24 17:42 Oxycodone 5 Mg Tablet PO 5 mg Q4HR PRN Administration Pain 5 to 7 Pantoprazole Sodium 40 mg 08/09/24 07:00 08/12/24 06:16 Pantoprazole 40 Mg Tablet PO 40 mg QDAC DEEPIKA Administration Ropinirole HCl 0.5 mg 08/10/24 15:32 08/11/24 20:47 Ropinirole 0.25 Mg Tablet PO 0.5 mg 1430 PRN Administration RESTLESS LEGS Senna 8.6 - 17.2 mg 08/11/24 21:00 08/12/24 09:02 Senna 8.6 Mg Tablet PO 8.6 mg DAILY DEEPIKA Administration Sodium Chloride 10 ml 08/08/24 13:20 08/11/24 06:26 Sodium Chloride Flush 0.9% 10 Ml Syringe IVP 10 ml PRN PRN Administration NEEDED PER PROVIDER ORDERS Sodium Chloride 10 ml 08/09/24 01:00 08/12/24 09:03 Sodium Chloride Flush 0.9% 10 Ml Syringe IVP 10 ml 0100,0900,1700 DEEPIKA Administration Sodium Chloride 10 ml 08/08/24 17:09 08/10/24 06:48 Sodium Chloride Flush 0.9% 10 Ml Syringe IVP 10 ml PRN PRN Administration NEEDED PER PROVIDER ORDERS Sodium Chloride 2 sprays 08/11/24 17:52 08/12/24 04:42 Sodium Chloride 0.65% Nasal [place] CATY 1 spr Q4HR PRN Administration Nasal Congestion Objective Vital Signs/Intake & Output Reviewed Vital Signs: Yes Vital Signs: Vital Signs x48h Temp Pulse Pulse Resp BP Pulse Ox O2 Flow Rate 08/12/24 13:09 77 16 4 08/12/24 12:53 75 22 114/64 87 L 4 08/12/24 08:06 99.3 F 71 24 121/65 89 L 4 08/12/24 07:49 5 08/12/24 07:49 73 12 6 Intake & Output: Intake & Output 08/09/24 08/10/24 08/11/24 08/12/24 23:59 23:59 23:59 23:59 Intake Total 1410 / 1410 1720 / 1720 1290 / 1290 420 / 420 Output Total 835 / 835 2475 / 2475 3125 / 3125 1450 / 1450 Balance 575 / 575 -755 / -755 -1835 / -1835 -1030 / -1030 Weight (kg) 70 kg 71 kg 72 kg 67 kg Objective General Appearance: positive No acute distress Eyes Bilateral: positive Normal inspection, PERRL, EOMI and No scleral icterus Neck: positive Nml inspection Respiratory: positive Chest non-tender, Wheezes (Insp and Exp- mildly improved from yesterday. ) and Rales Cardiovascular: positive Regular rate & rhythm, No murmur and Other (2+ edema BLE, improving. Now extends to mid calves, improved from just below knees. ) Abdomen: positive Non-tender and Nml bowel sounds Back: positive Nml inspection Skin: positive Color nml and No rash; negative Cyanosis Neurologic/Psychiatric: positive Oriented x3 and CN's nml (2-12) Lab Results 08/12/24 04:35 08/12/24 04:35 Other Labs: Lab Results x24hrs 08/12/24 Range/Units 04:35 WBC 7.4 (4.8-10.8) x10^3/uL RBC 4.57 (4.20-5.40) 10^6/uL Hgb 13.2 (12.0-16.0) g/dL Hct 41.6 (37.0-47.0) % MCV 91.0 (81.0-99.0) fL MCH 28.9 (27.0-31.0) pg MCHC 31.7 L (32.0-36.0) g/dL RDW 15.8 H (12.0-15.0) % Plt Count 244 (130-450) 10^3/uL MPV 9.6 (7.9-10.8) fL Neut # (Auto) 5.6 (1.5-6.6) 10^3/uL Lymph # (Auto) 1.2 L (1.5-3.5) 10^3/uL [place] # (Auto) 0.5 (0.0-1.0) 10^3/uL Eos # (Auto) 0.1 (0.0-0.7) 10^3/uL Baso # (Auto) 0.0 (0.0-0.1) 10^3/uL Absolute Nucleated RBC 0.04 x10^3/uL Nucleated RBC % 0.5 /100WBC VBG pH 7.494 H (7.31-7.41) Ionized Calcium 1.08 L (1.09-1.30) mmol/L Sodium 134 L (135-145) mmol/L Potassium 3.9 (3.5-4.5) mmol/L Chloride 96 L (101-111) mmol/L Carbon Dioxide 36 H (21-32) mmol/L Anion Gap 2.0 L (6-13) BUN 25 H (6-20) mg/dL Creatinine 0.8 (0.6-1.3) mg/dL Estimated GFR (MDRD) 70 L (>89) Glucose 91 (74-104) mg/dL Calcium 8.1 L (8.5-10.3) mg/dL Phosphorus 3.0 (2.5-5.0) mg/dL Magnesium 1.7 (1.7-2.3) mg/dL B-Natriuretic Peptide 1786 H (5-100) pg/mL ABX Reporting Has patient been on IV antibiotics over the past 48 hours?: No Assessment/Plan Problem List (1) Acute respiratory failure with hypoxia and hypercarbia: Impression: Patient was requiring BiPAP on admission. Now on 6 L nasal cannula. Longstanding history of COPD, so oxygen saturation goals between 88 to 92%. CTA was done on 08/08 which was negative for pulmonary embolism, but did show pleural effusions and groundglass opacities with mild cardiomegaly. Underlying emphysematous changes were also noted. Continue aggressive IV diuresis with Lasix 40 mg twice daily. Her creatinine has been stable, and within normal limits. Her BNP was elevated on admission. Echo has been ordered, revealed pulmonary hypertension. Likely due to underlying COPD. Will need close follow up with automobile wrecker in outpatient setting. (2) COPD exacerbation: Impression: Continue chronic azithromycin therapy. Continue to wean oxygen as tolerated. (3) CHF (congestive heart failure): Impression: Echo completed - left ventricular ejection fraction is estimated at 55 to 60%. The right ventricle is severely dilated. The right ventricular systolic function is severely decreased. Moderate tricuspid regurgitation present. Severe PHTN 60 - 65mmHg. Qualifiers: Heart failure chronicity: acute Heart failure type: unspecified Q ualified Code(s): I50.9 - Heart failure, unspecified (4) Restless leg syndrome: Impression: Patient with trouble sleeping due to restless leg. Will trial patient on increased dose of ropinirole 0.5mg approximately 90 minutes before sleeping.
--- NOTE | 2024-08-12 15:13 | OT Plan of Care ---
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 Fiberoptic flex laryngoscopy nml. Told to stop smoking History of alcohol abuse started drinking age 21, stopped 2013. Cervical stenosis of spine MRI 11/04/23 GERD (gastroesophageal reflux disease) EGD 2014 with severe gastropathy and distal esophagitis Shoulder arthralgia R humeral head resurfacing 2014 Intertrochanteric fracture of femur w fall and 06/2013 ORIF Wrist fracture ORIF w deformed L wrist, she did it after fall Multiparous . one miscarriage. COPD (chronic obstructive pulmonary disease) FVC (128%) FEV1 2.52 (121%) FEV1/FVC 68%, VC 2.9 (129%), DLCO 8.5 (45%). Minimal obstructive lung defect. More detailed pulmonary function requested. Moderate decrease in diffusion capacity. Insignificant response to bronchodilator. Hypertension COPD (chronic obstructive pulmonary disease) Assessment Assessment Pt is a 79 y/o female adm with Acute respiratory failure with hypoxia and hypercarbia requiring Bipap and ICU management. Weaned to 4-6L NC at rest. Cleared for therapy evaluation. Met sitting in chair, A&Ox4, willing to participate with therapy. Pt placed on 6L NC for ambulation . Performed sit to stand and ambulation household distances 50ft (x3 trials) CGA using RW [place] 78% Spo2, sitting rest break and PLB with prolonged recovery to 91%. Currently MIN A LB, CG UB ADL with increased time and cues for pacing and rest breaks. Overall presents with decreased endurance, activity tolerance and ADL status Goals - Activities of Daily Living Improve Upper Extremity Modified Independent Dressing to: Improve Lower Extremity Modified Independent Dressing to: Improve Grooming/Hygiene to: Modified Independent Improve Bathing to: Modified Independent Improve Toileting to: Modified Independent Plan Treatment Frequency 1x/day -Discharge Recommendations Discharge Location Snf Facility Transport Needs at Discharge Wheelchair van
[2024-08-12] MEDS: traMADol 50 MG TABLET PO PRN (20:38)
[2024-08-12] MEDS: ONDANSETRON 4 MG/2 ML VIAL IVP PRN (20:38)
[2024-08-13 06:22] LABS: BASOPHILS % (AUTO) 0.2 %; HCT - HEMATOCRIT 47.8 % (37.0-47.0); HGB - HEMOGLOBIN 14.6 g/dL (12.0-16.0); LYMPHOCYTES % (AUTO) 1.5 %; MEAN CORPUSCULAR HEMOGLOBIN 28.1 pg (27.0-31.0); MEAN CORPUSCULAR HGB CONC 30.5 g/dL (32.0-36.0); MEAN CORPUSCULAR VOLUME 91.9 fL (81.0-99.0); MEAN PLATELET VOLUME 9.3 fL (7.9-10.8); MONOCYTES % (AUTO) 1.7 %; NEUTROPHILS % (AUTO) 96.2 %; PLT - PLATELET COUNT 266 10^3/uL (130-450); RED CELL DISTRIBUTION WIDTH 15.7 % (12.0-15.0); WHITE BLOOD COUNT 22.4 x10^3/uL (4.8-10.8)
[2024-08-13 06:25] LABS: ABNORMAL LYMPHS % (MANUAL) 0 %
[2024-08-13 06:34] LABS: MAGNESIUM 2.2 mg/dL (1.7-2.3)
[2024-08-13 06:42] LABS: CALCIUM 8.8 mg/dL (8.5-10.3); CREATININE 0.6 mg/dL (0.6-1.3); POTASSIUM 3.3 mmol/L (3.5-4.5)
[2024-08-13 06:46] LABS: BAND NEUTROPHILS % (MANUAL) 10 %; DIFFERENTIAL COMMENT MANUAL DIFFERENTIAL; LYMPHOCYTES # (MANUAL) 0.9 10^3/uL (1.5-3.5); LYMPHOCYTES % (MANUAL) 4 %; NEUTROPHILS # (MANUAL) 21.5 10^3/uL (1.5-6.6); PLATELET ESTIMATE, MANUAL NORMAL (130-450,000) (NORMAL); PLATELET MORPHOLOGY NORMAL APPEARANCE (NORMAL); RBC MORPHOLOGY (MULTIPLE) NORMAL APPEARANCE (NORMAL); WBC MORPHOLOGY (MULTIPLE) NORMAL APPEARANCE (NORMAL)
--- NOTE | 2024-08-13 09:17 | PROVIDER PROGRESS NOTE ---
Subjective Prog Note Date Prog Note Date: 08/13/24 Prog Note Time: 09:15 Subjective Pt reports feeling: Improved Subjective: Pt. reports feeling better than yesterday. Had a hard time sleeping r/t diarrhea x 3-4. Only discomfort is abdominal. She hopes to go home to her . They live alone. She reports she would accept help at home. Current Medications Current Medications Current Medications: Current Medications Generic Name Dose Route Start Last Admin Trade Name Freq PRN Reason Stop Dose Admin Acetaminophen 650 mg 08/08/24 13:20 Acetaminophen 325 Mg Tablet PO Q4HR PRN Pain 1 to 4, or Fever Aspirin 81 mg 08/09/24 09:00 08/13/24 08:11 Aspirin Ec 81 Mg Tablet PO 81 mg DAILY DEEPIKA Administration Azithromycin 250 mg 08/11/24 09:00 08/13/24 08:11 Azithromycin 250 Mg Tablet PO 250 mg DAILY DEEPIKA Administration Diltiazem HCl 240 mg 08/08/24 13:20 08/13/24 08:18 Diltiazem Cd 240 Mg Capsule PO 240 mg DAILY DEEPIKA Administration Diphenhydramine HCl 25 mg 08/08/24 13:20 08/12/24 20:38 Diphenhydramine 25 Mg Capsule PO 25 mg HS PRN Administration insomnia Enoxaparin Sodium 40 mg 08/09/24 09:00 08/13/24 08:11 Enoxaparin 40 Mg/0.4 Ml Syringe SUBQ 40 mg DAILY DEEPIKA Administration Furosemide 40 mg 08/14/24 09:00 Furosemide 40 Mg Tablet PO DAILY DEEPIKA Ipratropium [place] 0.5 mg 08/11/24 18:20 08/13/24 07:14 Ipratropium 0.2 Mg/Ml Neb INH 0.5 mg RTTID DEEPIKA Administration Ondansetron HCl 4 mg 08/08/24 13:20 08/10/24 10:54 Ondansetron Odt 4 Mg Tablet TL 4 mg Q6HR PRN Administration Nausea / Vomiting Ondansetron HCl 4 mg 08/08/24 13:20 08/12/24 20:38 Ondansetron 4 Mg/2 Ml Vial IVP 4 mg Q6HR PRN Administration Nausea / Vomiting Oxycodone HCl 5 mg 08/08/24 13:20 08/12/24 18:07 Oxycodone 5 Mg Tablet PO 5 mg Q4HR PRN Administration Pain 5 to 7 Pantoprazole Sodium 40 mg 08/09/24 07:00 08/13/24 06:06 Pantoprazole 40 Mg Tablet PO 40 mg QDAC DEEPIKA Administration Ropinirole HCl 0.5 mg 08/10/24 15:32 08/12/24 20:38 Ropinirole 0.25 Mg Tablet PO 0.5 mg 1430 PRN Administration RESTLESS LEGS Senna 8.6 - 17.2 mg 08/11/24 21:00 08/13/24 08:11 Senna 8.6 Mg Tablet PO 8.6 mg DAILY DEEPIKA Administration Sodium Chloride 10 ml 08/08/24 13:20 08/11/24 06:26 Sodium Chloride Flush 0.9% 10 Ml Syringe IVP 10 ml PRN PRN Administration NEEDED PER PROVIDER ORDERS Sodium Chloride 10 ml 08/09/24 01:00 08/13/24 08:11 Sodium Chloride Flush 0.9% 10 Ml Syringe IVP 10 ml 0100,0900,1700 DEEPIKA Administration Sodium Chloride 10 ml 08/08/24 17:09 08/13/24 06:06 Sodium Chloride Flush 0.9% 10 Ml Syringe IVP 10 ml PRN PRN Administration NEEDED PER PROVIDER ORDERS Sodium Chloride 2 sprays 08/11/24 17:52 08/12/24 04:42 Sodium Chloride 0.65% Nasal [place] CATY 1 spr Q4HR PRN Administration Nasal Congestion Tramadol HCl 50 mg 08/12/24 20:25 08/13/24 00:06 Tramadol 50 Mg Tablet PO 50 mg Q4HR PRN Administration Moderate Pain (Level 4-6) Objective Vital Signs/Intake & Output Reviewed Vital Signs: Yes Vital Signs: Vital Signs x48h Temp Pulse Pulse Resp BP Pulse Ox O2 Flow Rate 08/13/24 08:49 36.8 C 80 24 135/67 H 90 L 5 08/13/24 07:19 4 08/13/24 07:14 81 16 4 08/13/24 05:00 36.6 C 79 16 127/60 92 5 Intake & Output: Intake & Output 08/10/24 08/11/24 08/12/24 08/13/24 23:59 23:59 23:59 23:59 Intake Total 1720 / 1720 1290 / 1290 1160 / 1160 500 / 500 Output Total 2475 / 2475 3125 / 3125 2650 / 2650 1300 / 1300 Balance -755 / -755 -1835 / -1835 -1490 / -1490 -800 / -800 Weight (kg) 71 kg 72 kg 67 kg 63 kg Objective General Appearance: positive No acute distress and Alert Eyes Bilateral: positive No scleral icterus ENT: positive Dry mucous membranes Neck: positive Nml inspection Respiratory: positive Chest non-tender, Rales (bibasilar crackles noted) and Other (5LPM via nasal ) Cardiovascular: positive Regular rate & rhythm, No murmur and No gallop Abdomen: positive Nml bowel sounds, Tenderness and Other (no peritoneal signs - no rigidity, guarding); negative Guarding, Rebound, Hepatomegaly, Splenomegaly or Mass Back: positive Nml inspection; negative CVA tenderness (R) or CVA tenderness (L) Skin: positive Color nml, No rash and Warm Extremities: positive Pedal edema (3+ bilaterally, up to knees) Neurologic/Psychiatric: positive Oriented x3 and Weakness Lab Results 08/13/24 06:08 08/13/24 06:08 Other Labs: Lab Results x24hrs 08/13/24 Range/Units 06:08 WBC 22.4 H (4.8-10.8) x10^3/uL RBC 5.20 (4.20-5.40) 10^6/uL Hgb 14.6 (12.0-16.0) g/dL Hct 47.8 H (37.0-47.0) % MCV 91.9 (81.0-99.0) fL MCH 28.1 (27.0-31.0) pg MCHC 30.5 L (32.0-36.0) g/dL RDW 15.7 H (12.0-15.0) % Plt Count 266 (130-450) 10^3/uL MPV 9.3 (7.9-10.8) fL Neut # (Auto) Not Reportable Lymph # (Auto) Not Reportable [place] # (Auto) Not Reportable Eos # (Auto) Not Reportable Baso # (Auto) Not Reportable Absolute Nucleated RBC Not Reportable Total Counted 100 Band Neuts % (Manual) 10 (0 - 10) % Abnorm Lymph % (Manual) 0 % Nucleated RBC % Not Reportable Neutrophils # (Manual) 21.5 H (1.5-6.6) 10^3/uL Lymphocytes # (Manual) 0.9 L (1.5-3.5) 10^3/uL Monocytes # (Manual) 0.0 (0.0-1.0) 10^3/uL Eosinophils # (Manual) 0.0 (0-0.7) 10^3/uL Basophils # (Manual) 0.0 (0-0.1) 10^3/uL Differential Comment MANUAL DIFFERENTIAL WBC Morphology NORMAL APPEARANCE (NORMAL) Platelet Estimate NORMAL (130-450,000) (NORMAL) Platelet Morphology NORMAL APPEARANCE (NORMAL) RBC Morph Micro Appear NORMAL APPEARANCE (NORMAL) Sodium 137 (135-145) mmol/L Potassium 3.3 L (3.5-4.5) mmol/L Chloride 92 L (101-111) mmol/L Carbon Dioxide 41 H* (21-32) mmol/L Anion Gap 4.0 L (6-13) BUN 21 H (6-20) mg/dL Creatinine 0.6 (0.6-1.3) mg/dL Estimated GFR (MDRD) 97 (>89) Glucose 149 H (74-104) mg/dL Calcium 8.8 (8.5-10.3) mg/dL Magnesium 2.2 (1.7-2.3) mg/dL B-Natriuretic Peptide 2181 H (5-100) pg/mL Diagnostic Imaging Diagnostic Imaging Results: positive Other (Read w/ Dr. Morin) Diagnostic Imaging Comments: No obvious source of abdominal pain. Chest x-ray w/ little change. ABX Reporting Has patient been on IV antibiotics over the past 48 hours?: No Assessment/Plan Problem List (1) Acute respiratory failure with hypoxia and hypercarbia: Impression: O2 down to 5LPM from 6 yesterday, wean as tolerated She is feeling better CXR seems stable Lasix 40 mg bid-holding r/t VBG pH elevated (2) COPD exacerbation: Impression: Cont. azithromycin and Ipratropium Wean O2 as tolerated (3) CHF (congestive heart failure): Impression: Chest x-ray shows continued R > L pleural effusions. Ground glass opacities. Seems stable, awaiting final read. 5LPM O2 today. Feeling better. Wean as tolerated. Lasix 40 mg bid-holding as above Qualifiers: Heart failure chronicity: acute Heart failure type: unspecified Q ualified Code(s): I50.9 - Heart failure, unspecified (4) UTI (urinary tract infection): Impression: Dark urine this AM w/ WBC that jumped from 7.4 to 22.4 UA this AM positive Rocephin ordered Qualifiers: Urinary tract infection type: site unspecified Hematuria presence: w ithout hematuria Qualified Code(s): N39.0 - Urinary tract infection, site not specified (5) Abdominal pain: Impression: C/o abdominal pain this AM Reports diarrhea x 3-4 last night WBC elevated Abd X-ray: "Prominent loops of small bowel. This could be seen in the setting of adynamic ileus or small bowel obstruction. Prominent stool in the right colon suggesting constipation. Consider CT abdomen and pelvis with IV contrast and further evaluation. Trace ascites seen on prior imaging." CT ordered Qualifiers: Abdominal location: unspecified location Qualified Code(s): R10.9 - Unspecified abdominal pain
[2024-08-13 09:31] LABS: BILIRUBIN,URINE NEGATIVE (NEGATIVE); GLUCOSE, URINE (UA) NEGATIVE (NEGATIVE); KETONES,URINE (UA) NEGATIVE (NEGATIVE); LEUKOCYTE ESTERASE, URINE MODERATE (NEGATIVE); NITRITE,URINE POSITIVE (NEGATIVE); OCCULT BLOOD,URINE LARGE (NEGATIVE); PH,URINE 6.5 PH (5.0-7.5); PROTEIN,URINE 30 mg/dL (NEGATIVE); UROBILINOGEN,URINE 1 (NORMAL) E.U./dL (NORMAL)
[2024-08-13 09:39] LABS: BACTERIA,URINE Many /HPF (None Seen); CLARITY,URINE SL. CLOUDY (CLEAR); RBC,URINE 0-5 /HPF (0-5); SQUAMOUS EPITHELIAL CELL,UR FEW Squamous (<= Few); WBC CLUMPS,URINE PRESENT; WBC,URINE 0-3 /HPF (0-5)
[2024-08-13] MEDS: cefTRIAXone 1 GM VIAL IVP SCH (09:55)
--- NOTE | 2024-08-13 09:56 | XRAY Report ---
PROCEDURE: XR Chest 1V INDICATIONS: REID TECHNIQUE: One view of the chest was acquired. COMPARISON: 08/08/2024 FINDINGS: Surgical changes and devices: Right shoulder loss. Lungs and pleura: Stable small to moderate pleural effusions with bibasilar consolidation. Increased smooth interstitial thickening. Emphysema. Mediastinum: Cardiomegaly. Normal contour otherwise. Bones and chest wall: No suspicious bony lesions. Overlying soft tissues appear unremarkable. IMPRESSION: Stable [id number] bilateral pleural effusions with bibasilar consolidation. Increased smooth interstitial thickening, suggestive of worsening pulmonary edema. Reviewed by: Turner Adams MD on 08/13/2024 9:55 AM PDT Approved by: Turner Adams MD on 08/13/2024 9:55 AM PDT Station ID: [id number]
--- NOTE | 2024-08-13 10:15 | XRAY Report ---
PROCEDURE: XR Abdomen 1 V INDICATIONS: abd pain TECHNIQUE: One view of the abdomen acquired. COMPARISON: Abdominal ultrasound 08/10/2024, CT pulmonary angiogram 08/08/2024. FINDINGS: Surgical changes and devices: None. Bowel: Scattered small bowel and colonic gas. A few loops of small bowel in the left abdomen are prominent. There is prominent fecal residue in the right colon. Soft tissues: No suspicious abdominal calcifications. Visualized solid organ contours appear normal in size. Bones: No suspicious bony lesions. IMPRESSION: Prominent loops of small bowel. This could be seen in the setting of adynamic ileus or small bowel obstruction. Prominent stool in the right colon suggesting constipation. Consider CT abdomen and pelvis with IV contrast and further evaluation. Trace ascites seen on prior imaging. Reviewed by: Luis Eduardo Barney MD on 08/13/2024 10:13 AM PDT Approved by: Luis Eduardo Barney MD on 08/13/2024 10:13 AM PDT Station ID: [id number]
[2024-08-13] MEDS ORDERED: iohexoL-300 100 ML VIAL ONE (10:25)
[2024-08-13] MEDS: iohexoL-300 100 ML VIAL IVP ONE (12:21)
--- NOTE | 2024-08-13 12:56 | CT Report ---
PROCEDURE: CT Abdomen/Pelvis W INDICATIONS: abd pain CONTRAST: 100ml omni 300 TECHNIQUE: After the administration of intravenous contrast, a CT scan of the abdomen and pelvis was performed. Images were recorded and evaluated at appropriate window settings. Reformats: coronal and sagittal. For radiation dose reduction, the following was used: automated exposure control, adjustment of mA and/or kV according to patient size. COMPARISON: 06/18/2019 FINDINGS: Image quality: Diagnostic Lower chest: Bibasilar consolidations and UIP pattern ILD with honeycombing. Probable background emphysema. Small pleural effusions. Enlarged pulmonary trunk and cardiomegaly. Liver: Unremarkable Gallbladder and biliary system: Possible dilated cystic duct remnant with small stones versus small gallbladder with small stones. CBD measures 6 to 7 mm, upper limit of normal Pancreas: Mildly atrophic parenchyma. No significant ductal dilation Spleen: None Adrenals: No discrete nodules Kidneys: No solid renal mass. Partially duplicated left collecting system. No hydronephrosis Vessels and lymph nodes: The main portal vein appears patent. Moderate atherosclerotic calcifications. No abdominal aortic aneurysm. No pathologic lymph nodes by size criteria. Bowel and peritoneum: No evidence of small bowel obstruction. There is a large stool ball in the rectum. Significant edema and wall thickening seen throughout the proximal and mid colon. There is also distention of the cecum. Small ascites. Mildly ectatic fluid-filled loops of central small bowel, without definite small bowel obstruction. The cecum is flipped into the right upper quadrant Body wall: Unremarkable Pelvis: Bladder is unremarkable. Uterus is absent Bones: No aggressive appearing osseous abnormality. Degenerative changes are present. Age-indeterminate L3 height loss, noted on lumbar spine imaging from 2022 IMPRESSION: Significant findings of colitis involving a long segment of mid colon. There is a large upstream fecal loading. A large rectal stool ball is also present. Prominent central fluid-filled loops of small bowel, probably enteritis or ileus, without CT findings for complete small bowel obstruction. Small ascites. Bibasilar pulmonary consolidations likely pneumonia and/or ILD exacerbation. Honeycombing and reticular changes compatible with significant UIP pattern ILD. Background emphysema also likely present. Small effusions. Future surveillance chest imaging is suggested to reassess underlying lung disease. Other findings above. Reviewed by: Ky Valdez MD on 08/13/2024 12:55 PM PDT Approved by: Ky Valdez MD on 08/13/2024 12:55 PM PDT Station ID: [id number]
[2024-08-13] MEDS: metroNIDAZOLE 500 MG/100 ML 500 MG/100 ML BAG IV SCH (14:45)
--- NOTE | 2024-08-13 14:48 | CONSULTATION NOTE ---
Referring Provider Name of Referring Provider:: Medicine (Mikel) Consult Date: 08/13/24 Chief Complaint Chief Complaint Chief Complaint: ileus vs sbo vs colitis History of Present Illness Admitted From Admitted From:: ED History Obtained From Records Reviewed: yes History obtained from: patient, chart, primary team History of Present Illness HPI Comment/Other: Patient admitted on 08/08 with dyspnea and diagnosed with CHF exacerbation. This morning, she had acute onset of abdominal pain, mostly in the left lower quadrant. She states it "feels like muscle pain." Her pain was associated with nausea this morning. She had a bowel movement after her CT was complete and she now denies nausea and states her pain is improved. [facility] Active Problems All Active Problems (Updated 08/13/24 @ 11:39 by Talia Coughlin NP) Abdominal pain (Acute) UTI (urinary tract infection) (Acute) Noncompliance (Acute) Acute respiratory failure with hypoxia and hypercarbia (Acute) Pleural effusion (Acute) CHF (congestive heart failure) (Acute) COPD exacerbation (Acute) Hypertension, essential, benign (Acute) Peripheral vascular disease (Acute) Right-sided thoracic back pain (Acute) Closed fracture of unspecified trochanteric section of femur (Acute) Primary osteoarthritis, right shoulder (Acute) Carpal tunnel syndrome, left (Acute) Arthritis of carpometacarpal (CMC) joint of left thumb (Acute) 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) Abnormal chest CT (Acute) Lung mass (Acute) Senile ectropion (Acute) Neck pain (Acute) Steatohepatitis (Acute) Heavy smoker (Acute) High risk medication use (Acute) Need for diphtheria, tetanus, acellular pertussis, haemophilus influenzae, and hepatitis B virus vaccine (Acute) Heartburn (Acute) Chronic back pain (Acute) Restless leg syndrome (Acute) Atherosclerotic heart disease of [place] coronary artery with angina pectoris (Acute) Medical History Medical History (Updated 08/13/24 @ 11:39 by Talia Coughlin NP) Globus syndrome EGD 12/26, ENT consult 02/2018. Fiberoptic flex laryngoscopy nml. Told to stop smoking History of alcohol abuse started drinking age 21, stopped 2013. Cervical stenosis of spine MRI 11/04/23 GERD (gastroesophageal reflux disease) EGD 2014 with severe gastropathy and distal esophagitis Shoulder arthralgia R humeral head resurfacing 2014 Intertrochanteric fracture of femur w fall and 06/2013 ORIF Wrist fracture ORIF w deformed L wrist, she did it after fall Multiparous . one miscarriage. COPD (chronic obstructive pulmonary disease) FVC (128%) FEV1 2.52 (121%) FEV1/FVC 68%, VC 2.9 (129%), DLCO 8.5 (45%). Minimal obstructive lung defect. More detailed pulmonary function requested. Moderate decrease in diffusion capacity. Insignificant response to bronchodilator. Hypertension COPD (chronic obstructive pulmonary disease) Surgical History Surgical History (Updated 08/08/24 @ 16:19 by Ailin George MD) S/P tonsillectomy and adenoidectomy S/P JAVIER (total abdominal hysterectomy) History of carpal tunnel release Hx of cholecystectomy H/O section Social History Social History (Updated 08/13/24 @ 14:50 by Nawaf Miller MD) Smoking Status: Current every day smoker Number of Years Smoked: 57 How many cigarettes a day do you smoke? 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 POLST Patient has POLST: No Meds/Allgy Home Medications Ambulatory Orders Medication Instructions Recorded Confirmed diltiazem HCl 240 mg See Rx Instructions .Route 0 06/09/24 08/08/24 capsule,extended release 24 hr .COMPLEX #90 caps umeclidinium 62.5 mcg/actuation 1 inh PO DAILY #90 ea 06/13/24 08/08/24 blister powder for inhalation (Incruse Ellipta) ropinirole 0.25 mg tablet 0.25 mg PO .COMPLEX #90 tabs 08/05/24 08/08/24 aspirin 81 mg tablet,delayed 81 mg PO DAILY 08/08/24 0 08/08/24 release (Adult Aspirin Regimen) diclofenac potassium 50 mg tablet 50 mg PO BID PRN kandi n 05/31/25 05/31/25 diphenhydramine HCl 25 mg capsule 25 mg PO HS PRN inso mnia 08/08/24 08/08/24 (Benadryl) omeprazole 20 mg capsule,delayed 20 mg PO DAILY 08/08/24 release Allergies Allergies Allergy/AdvReac Type Severity Reaction Status Date / Time coconut Allergy Anaphylaxis Verified 08/08/24 07:49 celecoxib (From Celebrex) AdvReac Severe Nausea Verified 08/08/24 06:25 felodipine AdvReac Severe Jittery, Verified 08/08/24 06:25 DIZZINESS, RESTLES LEG SYNDROM Antihistamines - Alkylamine AdvReac JITTERY Verified 08/08/24 07:49 Results Lab Results Lab results reviewed: Yes 08/13/24 06:08 08/13/24 06:08 Other Lab Results: Lab Results x24hrs 08/13/24 08/13/24 Range/Units 09:24 06:08 WBC 22.4 H (4.8-10.8) x10^3/uL RBC 5.20 (4.20-5.40) 10^6/uL Hgb 14.6 (12.0-16.0) g/dL Hct 47.8 H (37.0-47.0) % MCV 91.9 (81.0-99.0) fL MCH 28.1 (27.0-31.0) pg MCHC 30.5 L (32.0-36.0) g/dL RDW 15.7 H (12.0-15.0) % Plt Count 266 (130-450) 10^3/uL MPV 9.3 (7.9-10.8) fL Neut # (Auto) Not Reportable Lymph # (Auto) Not Reportable [place] # (Auto) Not Reportable Eos # (Auto) Not Reportable Baso # (Auto) Not Reportable Absolute Nucleated RBC Not Reportable Total Counted 100 Band Neuts % (Manual) 10 (0 - 10) % Abnorm Lymph % (Manual) 0 % Nucleated RBC % Not Reportable Neutrophils # (Manual) 21.5 H (1.5-6.6) 10^3/uL Lymphocytes # (Manual) 0.9 L (1.5-3.5) 10^3/uL Monocytes # (Manual) 0.0 (0.0-1.0) 10^3/uL Eosinophils # (Manual) 0.0 (0-0.7) 10^3/uL Basophils # (Manual) 0.0 (0-0.1) 10^3/uL Differential Comment MANUAL DIFFERENTIAL WBC Morphology NORMAL APPEARANCE (NORMAL) Platelet Estimate NORMAL (130-450,000) (NORMAL) Platelet Morphology NORMAL APPEARANCE (NORMAL) RBC Morph Micro Appear NORMAL APPEARANCE (NORMAL) Sodium 137 (135-145) mmol/L Potassium 3.3 L (3.5-4.5) mmol/L Chloride 92 L (101-111) mmol/L Carbon Dioxide 41 H* (21-32) mmol/L Anion Gap 4.0 L (6-13) BUN 21 H (6-20) mg/dL Creatinine 0.6 (0.6-1.3) mg/dL Estimated GFR (MDRD) 97 (>89) Glucose 149 H (74-104) mg/dL Calcium 8.8 (8.5-10.3) mg/dL Magnesium 2.2 (1.7-2.3) mg/dL AST 24 (10-42) IU/L ALT 68 H (10-60) IU/L B-Natriuretic Peptide 2181 H (5-100) pg/mL Urine Color BROWN Urine Clarity SL. CLOUDY (CLEAR) Urine pH 6.5 (5.0-7.5) PH Ur Specific [place] 1.015 (1.002-1.030) Urine Protein 30 H (NEGATIVE) mg/dL Urine Glucose (UA) NEGATIVE (NEGATIVE) mg/dL Urine Ketones NEGATIVE (NEGATIVE) mg/dL Urine Occult Blood LARGE H (NEGATIVE) Urine Nitrite POSITIVE H (NEGATIVE) Urine Bilirubin NEGATIVE (NEGATIVE) Urine Urobilinogen 1 (NORMAL) (NORMAL) E.U./dL Ur Leukocyte Esterase MODERATE H (NEGATIVE) Urine RBC 0-5 (0-5) /HPF Urine WBC 0-3 (0-5) /HPF Urine WBC Clumps PRESENT Ur Squamous Epith Cells FEW Squamous (<= Few) Urine Bacteria Many H (None Seen) /HPF Diagnostic Imaging Results Diagnostic Imaging Results: positive Final report reviewed, Discussed with radiologist and Read independently Diagnostic Imaging Results Comments: CT abd/pelvis demonstrates moderate ascites. Stool throughout colon, mostly liquid and lots of air in the rectum. Sigmoid colon is thickened. Cecum appears mobile and is in RUQ without vascular congestion to suggest cecal volvulus. Review of Systems Status of ROS: 10 or more systems reviewed and unremarkable except as noted in history and below Exam Exam Vital Signs: Vital Signs x48h Temp Pulse Pulse Resp BP Pulse Ox O2 Flow Rate 08/13/24 13:07 69 16 4 08/13/24 12:59 68 20 115/60 92 5 08/13/24 08:49 98.2 F 80 24 135/67 H 90 L 5 08/13/24 07:19 4 08/13/24 07:14 81 16 4 GEN: No acute distress, appears stated age, alert and oriented HEENT: NCAT, MMM, EOMI, HFNC at 4L NEURO: CN II-XII grossly intact, no obvious focal deficits CV: RRR PULM: non labored breathing ABD: soft, moderate LLQ ttp, otherwise non tender, no rebound or guarding, not distended CIRCULATORY: 3+ B LE edema SKIN: no lesions appreciated LYMPH: no obvious lymphadenopathy MSK: 4/4 strength in all extremities PSYCH: Affect is appropriate Conclusion/Plan Problem List (1) Acute respiratory failure with hypoxia and hypercarbia: (2) COPD exacerbation: (3) CHF (congestive heart failure): Qualifiers: Heart failure chronicity: acute Heart failure type: unspecified Q ualified Code(s): I50.9 - Heart failure, unspecified (4) UTI (urinary tract infection): (5) Abdominal pain: Plan 79 y/o F with: 1. Sigmoid colitis - no free air, proximal colon is not inflamed - agree with checking c diff - on rocephin, flagyl - continue to follow 2. UTI - on rocephin, flagyl - f/u cultures - may be contributing to colitis 3. mobile cecum - exam, labs not commercial representative of cecal volvulus at this time - benign exam 4. CHF exacerbation, COPD, HTN, PVD, OA, smoker, GERD, RLS, CAD - as per primary team - patient is a poor surgical candidate, especially for our small, critical access hospital. I do not think she needs surgery at this time. Were that to change, I discussed with the patient that the availability of subspecialists (cardiology, pulmonology) would be beneficial to her and I would strongly recommend tranikosfer to a higher level of care. The patient voiced understanding and states she would want to be transferred in the situation. Lab Results Lab results reviewed: Yes 08/13/24 06:08 08/13/24 06:08 Diagnostic Imaging Results Diagnostic Imaging Results: positive Final report reviewed, Discussed with radiologist and Read independently
[2024-08-14 05:13] LABS: HCT - HEMATOCRIT 43.7 % (37.0-47.0); HGB - HEMOGLOBIN 13.7 g/dL (12.0-16.0); MEAN CORPUSCULAR HEMOGLOBIN 29.1 pg (27.0-31.0); MEAN CORPUSCULAR HGB CONC 31.4 g/dL (32.0-36.0); RED BLOOD COUNT 4.7 10^6/uL (4.20-5.40); RED CELL DISTRIBUTION WIDTH 15.7 % (12.0-15.0); WHITE BLOOD COUNT 18.5 x10^3/uL (4.8-10.8)
[2024-08-14 05:37] LABS: CALCIUM 8.7 mg/dL (8.5-10.3); CREATININE 0.7 mg/dL (0.6-1.3); POTASSIUM 3.7 mmol/L (3.5-4.5)
--- NOTE | 2024-08-14 08:18 | PROVIDER PROGRESS NOTE ---
Progress Note Progress Note Progress Note: General Surgery Progress Note S: Comfortable. Minimal discomfort in lower abdomen. Passing flatus and liquid bowel motions. Stool for C Diff ordered but not yet collected. On Ceftriaxone for increasing leukocytosis and pyuria. On Flagyl for possible sigmoid colitis. O: VSS, afeb; AAO; Cooperative; Abdomen soft, not distended, not tender; Active BS Leukocytosis down to 18K; BUN 17; Cr 0.7; Glu 88; K 3.[address] images from yesterday's scan. A: No clinical, lab or image evidence of an acute abdomen. She may have C Diff and labs are pending. P: C Diff titer and treat if positive. Otherwise, continue home regimen for chronic constipation. No indication for surgical intervention at this time. I discussed the case with Dr. Morin. The General Surgery Service will sign off today. Please do not hesitate to contact us if you have further questions or concerns or if you wish to have us continue to follow this patient with you. Nir Lee MD, FACS General Surgery Service
[2024-08-14 08:37] LABS: VBG BASE EXCESS 25.2 mmol/L (-2 - +2); VBG PCO2 54.3 mmHg (41-51); VBG PH 7.549 (7.31-7.41); VBG PO2 57.5 mmHg (25-47); VBG TOTAL CO2 49.5 mmol/L (24-29)
[2024-08-14] MEDS: FUROSEMIDE 40 MG TABLET PO SCH (08:40)
--- NOTE | 2024-08-14 09:50 | PROVIDER PROGRESS NOTE ---
Subjective Subjective Subjective: Patient states that she feels better today. She had a good sleep overnight. She continues to have some abdominal tenderness in the epigastric and left lower quadrant region, although she states is better than yesterday. She has not had any episodes of diarrhea. She states her shortness of breath is improved. She denies any fevers or chills. Current Medications Current Medications Current Medications: Current Medications Generic Name Dose Route Start Last Admin Trade Name Freq PRN Reason Stop Dose Admin Acetaminophen 650 mg 08/08/24 13:20 Acetaminophen 325 Mg Tablet PO Q4HR PRN Pain 1 to 4, or Fever Aspirin 81 mg 08/09/24 09:00 08/14/24 08:40 Aspirin Ec 81 Mg Tablet PO 81 mg DAILY DEEPIKA Administration Azithromycin 250 mg 08/11/24 09:00 08/14/24 08:40 Azithromycin 250 Mg Tablet PO 250 mg DAILY DEEPIKA Administration Ceftriaxone Sodium 1 gm 08/13/24 10:00 08/14/24 08:40 Ceftriaxone 1 Gm Vial IVP 1 gm DAILY DEEPIKA Administration Diltiazem HCl 240 mg 08/08/24 13:20 08/14/24 08:52 Diltiazem Cd 240 Mg Capsule PO 240 mg DAILY DEEPIKA Administration Diphenhydramine HCl 25 mg 08/08/24 13:20 08/13/24 20:43 Diphenhydramine 25 Mg Capsule PO 25 mg HS PRN Administration insomnia Enoxaparin Sodium 40 mg 08/09/24 09:00 08/14/24 08:41 Enoxaparin 40 Mg/0.4 Ml Syringe SUBQ 40 mg DAILY DEEPIKA Administration Furosemide 40 mg 08/14/24 09:00 08/14/24 08:40 Furosemide 40 Mg Tablet PO 40 mg DAILY DEEPIKA Administration Metronidazole 500 mg in 100 mls @ 100 mls/hr 08/13/24 15:00 08/14/24 07:15 Flagyl 500 Mg/100 Ml IV Infused Q8H DEEPIKA Infusion Ipratropium [place] 0.5 mg 08/11/24 18:20 08/14/24 04:54 Ipratropium 0.2 Mg/Ml Neb INH 0.5 mg RTTID DEEPIKA Administration Ondansetron HCl 4 mg 08/08/24 13:20 08/10/24 10:54 Ondansetron Odt 4 Mg Tablet TL 4 mg Q6HR PRN Administration Nausea / Vomiting Ondansetron HCl 4 mg 08/08/24 13:20 08/12/24 20:38 Ondansetron 4 Mg/2 Ml Vial IVP 4 mg Q6HR PRN Administration Nausea / Vomiting Oxycodone HCl 5 mg 08/08/24 13:20 08/12/24 18:07 Oxycodone 5 Mg Tablet PO 5 mg Q4HR PRN Administration Pain 5 to 7 Pantoprazole Sodium 40 mg 08/09/24 07:00 08/14/24 06:02 Pantoprazole 40 Mg Tablet PO 40 mg QDAC DEEPIKA Administration Ropinirole HCl 0.5 mg 08/10/24 15:32 08/13/24 20:43 Ropinirole 0.25 Mg Tablet PO 0.5 mg 1430 PRN Administration RESTLESS LEGS Senna 8.6 - 17.2 mg 08/11/24 21:00 08/14/24 08:40 Senna 8.6 Mg Tablet PO 8.6 mg DAILY DEEPIKA Administration Sodium Chloride 10 ml 08/08/24 13:20 08/11/24 06:26 Sodium Chloride Flush 0.9% 10 Ml Syringe IVP 10 ml PRN PRN Administration NEEDED PER PROVIDER ORDERS Sodium Chloride 10 ml 08/09/24 01:00 08/14/24 08:52 Sodium Chloride Flush 0.9% 10 Ml Syringe IVP 10 ml 0100,0900,1700 DEEPIKA Administration Sodium Chloride 10 ml 08/08/24 17:09 08/13/24 06:06 Sodium Chloride Flush 0.9% 10 Ml Syringe IVP 10 ml PRN PRN Administration NEEDED PER PROVIDER ORDERS Sodium Chloride 2 sprays 08/11/24 17:52 08/12/24 04:42 Sodium Chloride 0.65% Nasal [place] CATY 1 spr Q4HR PRN Administration Nasal Congestion Tramadol HCl 50 mg 08/12/24 20:25 08/13/24 15:03 Tramadol 50 Mg Tablet PO 50 mg Q4HR PRN Administration Moderate Pain (Level 4-6) Objective Vital Signs/Intake & Output Reviewed Vital Signs: Yes Vital Signs: Vital Signs x48h Temp Pulse Pulse Resp BP Pulse Ox O2 Flow Rate 08/14/24 09:22 98.8 F 08/14/24 08:14 77 19 135/68 H 95 5 08/14/24 04:55 5 08/14/24 04:55 82 20 5 08/14/24 04:24 99.1 F 78 17 131/61 H 93 5 Intake & Output: Intake & Output 08/11/24 08/12/24 08/13/24 08/14/24 23:59 23:59 23:59 23:59 Intake Total 1290 / 1290 1160 / 1160 650 / 650 1060 / 1060 Output Total 3125 / 3125 2650 / 2650 1800 / 1800 400 / 400 Balance -1835 / -1835 -1490 / -1490 -1150 / -1150 660 / 660 Weight (kg) 72 kg 67 kg 63 kg 63 kg Objective General Appearance: positive No acute distress and Alert Eyes Bilateral: positive No scleral icterus ENT: positive Dry mucous membranes Neck: positive Nml inspection Respiratory: positive Chest non-tender, Rales (bibasilar crackles noted) and Other (5LPM via nasal ) Cardiovascular: positive Regular rate & rhythm, No murmur and No gallop Abdomen: positive Nml bowel sounds, Tenderness and Other (no peritoneal signs - no rigidity, guarding); negative Guarding, Rebound, Hepatomegaly, Splenomegaly or Mass Back: positive Nml inspection; negative CVA tenderness (R) or CVA tenderness (L) Skin: positive Color nml, No rash and Warm Extremities: positive Pedal edema (3+ bilaterally, up to knees) Neurologic/Psychiatric: positive Oriented x3 and Weakness Lab Results 08/14/24 04:48 08/14/24 04:48 Other Labs: Lab Results x24hrs 08/14/24 08/14/24 08/13/24 Range/Units 08:26 04:48 15:05 WBC 18.5 H (4.8-10.8) x10^3/uL RBC 4.70 (4.20-5.40) 10^6/uL Hgb 13.7 (12.0-16.0) g/dL Hct 43.7 (37.0-47.0) % MCV 93.0 (81.0-99.0) fL MCH 29.1 (27.0-31.0) pg MCHC 31.4 L (32.0-36.0) g/dL RDW 15.7 H (12.0-15.0) % Plt Count 237 (130-450) 10^3/uL MPV 10.0 (7.9-10.8) fL VBG pH 7.549 H (7.31-7.41) VBG pCO2 54.3 H (41-51) mmHg VBG pO2 57.5 H (25-47) mmHg VBG HCO3 47.8 H (23-28) mmol/L VBG Total CO2 49.5 H (24-29) mmol/L VBG O2 Saturation 90.0 H (60-80) % VBG Base Excess 25.2 H (-2 - +2) mmol/L Sodium 137 (135-145) mmol/L Potassium 3.7 (3.5-4.5) mmol/L Chloride 91 L (101-111) mmol/L Carbon Dioxide 43 H* (21-32) mmol/L Anion Gap 3.0 L (6-13) BUN 17 (6-20) mg/dL Creatinine 0.7 (0.6-1.3) mg/dL Estimated GFR (MDRD) 81 L (>89) Glucose 88 (74-104) mg/dL Lactic Acid 1.1 (0.5-2.2) mmol/L Calcium 8.7 (8.5-10.3) mg/dL Magnesium 2.0 (1.7-2.3) mg/dL AST (10-42) IU/L ALT (10-60) IU/L // Range/Units 06:08 WBC (4.8-10.8) x10^3/uL RBC (4.20-5.40) 10^6/uL Hgb (12.0-16.0) g/dL Hct (37.0-47.0) % MCV (81.0-99.0) fL MCH (27.0-31.0) pg MCHC (32.0-36.0) g/dL RDW (12.0-15.0) % Plt Count (130-450) 10^3/uL MPV (7.9-10.8) fL VBG pH (7.31-7.41) VBG pCO2 (41-51) mmHg VBG pO2 (25-47) mmHg VBG HCO3 (23-28) mmol/L VBG Total CO2 (24-29) mmol/L VBG O2 Saturation (60-80) % VBG Base Excess (-2 - +2) mmol/L Sodium (135-145) mmol/L Potassium (3.5-4.5) mmol/L Chloride (101-111) mmol/L Carbon Dioxide (21-32) mmol/L Anion Gap (6-13) BUN (6-20) mg/dL Creatinine (0.6-1.3) mg/dL Estimated GFR (MDRD) (>89) Glucose (74-104) mg/dL Lactic Acid (0.5-2.2) mmol/L Calcium (8.5-10.3) mg/dL Magnesium (1.7-2.3) mg/dL AST 24 (10-42) IU/L ALT 68 H (10-60) IU/L Diagnostic Imaging Diagnostic Imaging Results: positive Other (Read w/ Dr. Morin) Diagnostic Imaging Comments: No obvious source of abdominal pain. Chest x-ray w/ little change. ABX Reporting Has patient been on IV antibiotics over the past 48 hours?: No Assessment/Plan Problem List (1) Acute respiratory failure with hypoxia and hypercarbia: Impression: Patient has longstanding history of COPD, although she has not required oxygen at home. Echo was completed which shows right ventricle is severely dilated, and right ventricular systolic function is severely decreased. Moderate tricuspid regurgitation is present. She also has severe pulmonary hypertension. She will likely be discharged home on oxygen. CTA was also completed on admission, 08/08this showed no pulmonary embolism, however did show pleural effusions, cardiomegaly, as well as diffuse underlying emphysematous changes. She is likely going to need lifelong oxygen support at home. Will wean down as tolerated. Now on 4 L via nasal cannula. (2) CHF (congestive heart failure): Impression: Patient presented with crackles on exam, BiPAP use. CTA shows bilateral pleural effusions. Received a few days of IV Lasix. She had good urine output. Appears largely euvolemic at this time. Still has some minor crackles at the bases of her lungs, and nonpitting pedal edema bilaterally. Hold Lasix at this time. Patient does have a metabolic alkalosis, likely from overdiuresis. Qualifiers: Heart failure chronicity: acute Heart failure type: unspecified Q ualified Code(s): I50.9 - Heart failure, unspecified (3) UTI (urinary tract infection): Impression: On 08/13, her white count jumped from 7 to 23. Urinalysis was positive for infection with patient endorsing some suprapubic tenderness with palpation as well. IV Rocephin was started, today is day 2 of 5 of antibiotics. Qualifiers: Hematuria presence: without hematuria Urinary tract infection type: s ite unspecified Qualified Code(s): N39.0 - Urinary tract infection, site not specified (4) Abdominal pain: Impression: Over the last 2 days, patient has had steadily increasing abdominal pain. Abdominal x-ray showed prominent loops of small bowel, adynamic ileus versus small bowel obstruction. This is followed by abdominal/pelvis CT which revealed findings of colitis in the mid colon, rectal stool impaction, as well as enteritis versus ileus. Initially, patient was having loose stools, diarrhea, likely overflow diarrhea. Stool studies are ordered, C. difficile is also ordered. General Surgery was consulted, more for the ileus versus SBO. Patient has no peritoneal signs, she is now passing gas, having bowel movements, no nausea or vomiting, tolerating p.o. intake well. They have signed off at this time. Will reconsult as needed. For the colitis, Flagyl was initiated. Continued at this time. Qualifiers: Abdominal location: unspecified location Qualified Code(s): R10.9 - Unspecified abdominal pain (5) COPD (chronic obstructive pulmonary disease): Impression: Patient with over 100 year smoking history. Still smoking about 5 cigarettes a day. Continue Atrovent RT 3 times daily. Patient not actively wheezy at this time. CTA shows diffuse emphysematous changes. Echo revealed severe pulmonary hypertension. Patient will likely need oxygen on discharge. Multiple conversations about long-term goals of care, hospice. Patient declines at this time. Qualifiers: COPD type: unspecified COPD Qualified Code(s): J44.9 - Chronic obstructive pulmonary disease, unspecified
[2024-08-14] MEDS: LIDOCAINE PATCH 4% TOP SCH (23:18)
[2024-08-15 05:06] LABS: HCT - HEMATOCRIT 41.7 % (37.0-47.0); HGB - HEMOGLOBIN 13.2 g/dL (12.0-16.0); MEAN CORPUSCULAR HEMOGLOBIN 28.6 pg (27.0-31.0); MEAN CORPUSCULAR HGB CONC 31.7 g/dL (32.0-36.0); MEAN CORPUSCULAR VOLUME 90.3 fL (81.0-99.0); MEAN PLATELET VOLUME 9.7 fL (7.9-10.8); RED BLOOD COUNT 4.62 10^6/uL (4.20-5.40); WHITE BLOOD COUNT 14.9 x10^3/uL (4.8-10.8)
[2024-08-15 05:26] LABS: MAGNESIUM 1.9 mg/dL (1.7-2.3)
[2024-08-15 05:27] LABS: CALCIUM 8.3 mg/dL (8.5-10.3); CREATININE 0.5 mg/dL (0.6-1.3); POTASSIUM 3.1 mmol/L (3.5-4.5)
[2024-08-15] MEDS: POTASSIUM CHLORIDE 20 MEQ TABLET PO ONE (09:11)
--- NOTE | 2024-08-15 10:02 | PROVIDER PROGRESS NOTE ---
Subjective Subjective Subjective: This morning, patient states she is doing okay. She does desaturate at night when she sleeping. She states that she forgets to breathe. She has no documented history of obstructive sleep apnea, but has not had a formal sleep study done. She has a longstanding history of COPD, and may benefit from trilogy device, or noninvasive ventilation due to continued CO2 retention, requiring BiPAP use as evidenced by her early hospital stay. Her abdominal pain is improving. She has had no episodes of loose diarrhea or stools overnight. She has no fevers or chills. She is very anxious to get home. She lives with her , who has difficulty getting around. She understands that she will be pretty deconditioned when she gets home, and will require long-term oxygen. Current Medications Current Medications Current Medications: Current Medications Generic Name Dose Route Start Last Admin Trade Name Freq PRN Reason Stop Dose Admin Acetaminophen 650 mg 08/08/24 13:20 Acetaminophen 325 Mg Tablet PO Q4HR PRN Pain 1 to 4, or Fever Aspirin 81 mg 08/09/24 09:00 08/15/24 09:13 Aspirin Ec 81 Mg Tablet PO 81 mg DAILY DEEPIKA Administration Azithromycin 250 mg 08/11/24 09:00 08/15/24 09:13 Azithromycin 250 Mg Tablet PO 250 mg DAILY DEEPIKA Administration Ceftriaxone Sodium 1 gm 08/13/24 10:00 08/15/24 09:13 Ceftriaxone 1 Gm Vial IVP 1 gm DAILY DEEPIKA Administration Diltiazem HCl 240 mg 08/08/24 13:20 08/15/24 09:12 Diltiazem Cd 240 Mg Capsule PO 240 mg DAILY DEEPIKA Administration Diphenhydramine HCl 25 mg 08/08/24 13:20 08/14/24 20:21 Diphenhydramine 25 Mg Capsule PO 25 mg HS PRN Administration insomnia Enoxaparin Sodium 40 mg 08/09/24 09:00 08/15/24 09:13 Enoxaparin 40 Mg/0.4 Ml Syringe SUBQ 40 mg DAILY DEEPIKA Administration Furosemide 40 mg 08/14/24 09:00 08/15/24 09:12 Furosemide 40 Mg Tablet PO 40 mg DAILY DEEPIKA Administration Metronidazole 500 mg in 100 mls @ 100 mls/hr 08/13/24 15:00 08/15/24 09:14 Flagyl 500 Mg/100 Ml IV Infused Q8H DEEPIKA Infusion Ipratropium [place] 0.5 mg 08/11/24 18:20 08/15/24 07:03 Ipratropium 0.2 Mg/Ml Neb INH 0.5 mg RTTID DEEPIKA Administration Lidocaine 1 patch 08/14/24 21:00 08/14/24 23:25 Lidocaine Patch 4% TOP 1 patch DAILY DEEPIKA Administration Ondansetron HCl 4 mg 08/08/24 13:20 08/10/24 10:54 Ondansetron Odt 4 Mg Tablet TL 4 mg Q6HR PRN Administration Nausea / Vomiting Ondansetron HCl 4 mg 08/08/24 13:20 08/12/24 20:38 Ondansetron 4 Mg/2 Ml Vial IVP 4 mg Q6HR PRN Administration Nausea / Vomiting Oxycodone HCl 5 mg 08/08/24 13:20 08/14/24 20:21 Oxycodone 5 Mg Tablet PO 5 mg Q4HR PRN Administration Pain 5 to 7 Pantoprazole Sodium 40 mg 08/09/24 07:00 08/15/24 06:04 Pantoprazole 40 Mg Tablet PO 40 mg QDAC DEEPIKA Administration Ropinirole HCl 0.5 mg 08/10/24 15:32 08/14/24 20:21 Ropinirole 0.25 Mg Tablet PO 0.5 mg 1430 PRN Administration RESTLESS LEGS Senna 8.6 - 17.2 mg 08/11/24 21:00 08/15/24 09:12 Senna 8.6 Mg Tablet PO 8.6 mg DAILY DEEPIKA Administration Sodium Chloride 10 ml 08/08/24 13:20 08/11/24 06:26 Sodium Chloride Flush 0.9% 10 Ml Syringe IVP 10 ml PRN PRN Administration NEEDED PER PROVIDER ORDERS Sodium Chloride 10 ml 08/09/24 01:00 08/15/24 09:14 Sodium Chloride Flush 0.9% 10 Ml Syringe IVP 10 ml 0100,0900,1700 DEEPIKA Administration Sodium Chloride 10 ml 08/08/24 17:09 08/13/24 06:06 Sodium Chloride Flush 0.9% 10 Ml Syringe IVP 10 ml PRN PRN Administration NEEDED PER PROVIDER ORDERS Sodium Chloride 2 sprays 08/11/24 17:52 08/12/24 04:42 Sodium Chloride 0.65% Nasal [place] CATY 1 spr Q4HR PRN Administration Nasal Congestion Tramadol HCl 50 mg 08/12/24 20:25 08/13/24 15:03 Tramadol 50 Mg Tablet PO 50 mg Q4HR PRN Administration Moderate Pain (Level 4-6) Objective Vital Signs/Intake & Output Reviewed Vital Signs: Yes Vital Signs: Vital Signs x48h Temp Pulse Pulse Resp BP Pulse Ox O2 Flow Rate 08/15/24 08:02 99.0 F 71 20 122/61 96 4 08/15/24 07:05 5 08/15/24 07:04 68 16 5 08/15/24 05:00 67 15 120/82 95 5 Intake & Output: Intake & Output 08/12/24 08/13/24 08/14/24 08/15/24 23:59 23:59 23:59 23:59 Intake Total 1160 / 1160 650 / 650 1400 / 1400 200 / 200 Output Total 2650 / 2650 1800 / 1800 1000 / 1000 0 / 0 Balance -1490 / -1490 -1150 / -1150 400 / 400 200 / 200 Weight (kg) 67 kg 63 kg 63 kg 63.5 kg Objective General Appearance: positive No acute distress and Alert Eyes Bilateral: positive No scleral icterus ENT: positive Dry mucous membranes Neck: positive Nml inspection Respiratory: positive Chest non-tender, Rales (bibasilar crackles noted) and Other (5LPM via nasal ) Cardiovascular: positive Regular rate & rhythm, No murmur and No gallop Abdomen: positive Nml bowel sounds, Tenderness and Other (no peritoneal signs - no rigidity, guarding); negative Guarding, Rebound, Hepatomegaly, Splenomegaly or Mass Back: positive Nml inspection; negative CVA tenderness (R) or CVA tenderness (L) Skin: positive Color nml, No rash and Warm Extremities: positive Pedal edema (3+ bilaterally, up to knees) Neurologic/Psychiatric: positive Oriented x3 and Weakness Lab Results 08/15/24 04:47 08/15/24 04:47 Other Labs: Lab Results x24hrs 08/15/24 Range/Units 04:47 WBC 14.9 H (4.8-10.8) x10^3/uL RBC 4.62 (4.20-5.40) 10^6/uL Hgb 13.2 (12.0-16.0) g/dL Hct 41.7 (37.0-47.0) % MCV 90.3 (81.0-99.0) fL MCH 28.6 (27.0-31.0) pg MCHC 31.7 L (32.0-36.0) g/dL RDW 16.0 H (12.0-15.0) % Plt Count 230 (130-450) 10^3/uL MPV 9.7 (7.9-10.8) fL Sodium 135 (135-145) mmol/L Potassium 3.1 L (3.5-4.5) mmol/L Chloride 92 L (101-111) mmol/L Carbon Dioxide 39 H* (21-32) mmol/L Anion Gap 4.0 L (6-13) BUN 13 (6-20) mg/dL Creatinine 0.5 L (0.6-1.3) mg/dL Estimated GFR (MDRD) 120 (>89) Glucose 95 (74-104) mg/dL Calcium 8.3 L (8.5-10.3) mg/dL Magnesium 1.9 (1.7-2.3) mg/dL Diagnostic Imaging Diagnostic Imaging Results: positive Other (Read w/ Dr. Morin) Diagnostic Imaging Comments: No obvious source of abdominal pain. Chest x-ray w/ little change. ABX Reporting Has patient been on IV antibiotics over the past 48 hours?: No Assessment/Plan Problem List (1) Acute respiratory failure with hypoxia and hypercarbia: Impression: Patient has longstanding history of COPD, although she has not required oxygen at home. Echo was completed which shows right ventricle is severely dilated, and right ventricular systolic function is severely decreased. Moderate tricuspid regurgitation is present. She also has severe pulmonary hypertension. She will likely be discharged home on oxygen. CTA was also completed on admission, 08/08this showed no pulmonary embolism, however did show pleural effusions, cardiomegaly, as well as diffuse underlying emphysematous changes. She is likely going to need lifelong oxygen support at home. Will wean down as tolerated. Now on 4 L via nasal cannula. (2) CHF (congestive heart failure): Impression: Patient presented with crackles on exam, BiPAP use. CTA shows bilateral pleural effusions. Received a few days of IV Lasix. She had good urine output. Still has some minor crackles at the bases of her lungs, and nonpitting pedal edema bilaterally. Continue oral Lasix at this time. Patient does have a metabolic alkalosis, likely from overdiuresis, which is improving.. Qualifiers: Heart failure chronicity: acute Heart failure type: unspecified Q ualified Code(s): I50.9 - Heart failure, unspecified (3) UTI (urinary tract infection): Impression: On 08/13, her white count jumped from 7 to 23. Urinalysis was positive for infection with patient endorsing some suprapubic tenderness with palpation as well. IV Rocephin was started, today is day 3 of 5 of antibiotics. Qualifiers: Hematuria presence: without hematuria Urinary tract infection type: s ite unspecified Qualified Code(s): N39.0 - Urinary tract infection, site not specified (4) Abdominal pain: Impression: Over the last 2 days, patient has had steadily increasing abdominal pain. Abdominal x-ray showed prominent loops of small bowel, adynamic ileus versus small bowel obstruction. This is followed by abdominal/pelvis CT which revealed findings of colitis in the mid colon, rectal stool impaction, as well as enteritis versus ileus. Initially, patient was having loose stools, diarrhea, likely overflow diarrhea. Stool studies are ordered, C. difficile is also ordered. General Surgery was consulted, more for the ileus versus SBO. Patient has no peritoneal signs, she is now passing gas, having bowel movements, no nausea or vomiting, tolerating p.o. intake well. They have signed off at this time. Will reconsult as needed. For the colitis, Flagyl was initiated. Continued at this time. Qualifiers: Abdominal location: unspecified location Qualified Code(s): R10.9 - Unspecified abdominal pain (5) COPD (chronic obstructive pulmonary disease): Impression: Patient with over 100 year smoking history. Still smoking about 5 cigarettes a day. Continue Atrovent RT 3 times daily. Patient not actively wheezy at this time. CTA shows diffuse emphysematous changes. Echo revealed severe pulmonary hypertension. Patient will likely need oxygen on discharge. Multiple conversations about long-term goals of care, hospice. Patient declines at this time. Qualifiers: COPD type: unspecified COPD Qualified Code(s): J44.9 - Chronic obstructive pulmonary disease, unspecified
[2024-08-16 04:35] LABS: HCT - HEMATOCRIT 39.9 % (37.0-47.0); HGB - HEMOGLOBIN 12.5 g/dL (12.0-16.0); MEAN CORPUSCULAR HEMOGLOBIN 28.5 pg (27.0-31.0); MEAN CORPUSCULAR HGB CONC 31.3 g/dL (32.0-36.0); MEAN CORPUSCULAR VOLUME 91.1 fL (81.0-99.0); MEAN PLATELET VOLUME 10.1 fL (7.9-10.8); RED BLOOD COUNT 4.38 10^6/uL (4.20-5.40); WHITE BLOOD COUNT 13.1 x10^3/uL (4.8-10.8)
[2024-08-16 04:51] LABS: CALCIUM 8.3 mg/dL (8.5-10.3); CREATININE 0.5 mg/dL (0.6-1.3); MAGNESIUM 1.8 mg/dL (1.7-2.3); POTASSIUM 3.6 mmol/L (3.5-4.5)
--- NOTE | 2024-08-16 08:01 | PROVIDER PROGRESS NOTE ---
Subjective Subjective Subjective: Patient is doing a lot better. She has some irritation with the nasal cannula in her nose with some bleeding. She states her breathing has been stable. She sometimes feels shortness of breath with movement. Her abdominal pain is completely resolved. She has not had a bowel movement in 48 hours. She denies any fevers and chills. She is anxious to get home. Current Medications Current Medications Current Medications: Current Medications Generic Name Dose Route Start Last Admin Trade Name Freq PRN Reason Stop Dose Admin Acetaminophen 650 mg 08/08/24 13:20 Acetaminophen 325 Mg Tablet PO Q4HR PRN Pain 1 to 4, or Fever Aspirin 81 mg 08/09/24 09:00 08/15/24 09:13 Aspirin Ec 81 Mg Tablet PO 81 mg DAILY DEEPIKA Administration Azithromycin 250 mg 08/11/24 09:00 08/15/24 09:13 Azithromycin 250 Mg Tablet PO 250 mg DAILY DEEPIKA Administration Ceftriaxone Sodium 1 gm 08/13/24 10:00 08/15/24 09:13 Ceftriaxone 1 Gm Vial IVP 1 gm DAILY DEEPIKA Administration Diltiazem HCl 240 mg 08/08/24 13:20 08/15/24 09:12 Diltiazem Cd 240 Mg Capsule PO 240 mg DAILY DEEPIKA Administration Diphenhydramine HCl 25 mg 08/08/24 13:20 08/15/24 20:44 Diphenhydramine 25 Mg Capsule PO 25 mg HS PRN Administration insomnia Enoxaparin Sodium 40 mg 08/09/24 09:00 08/15/24 09:13 Enoxaparin 40 Mg/0.4 Ml Syringe SUBQ 40 mg DAILY DEEPIKA Administration Furosemide 40 mg 08/14/24 09:00 08/15/24 09:12 Furosemide 40 Mg Tablet PO 40 mg DAILY DEEPIKA Administration Metronidazole 500 mg in 100 mls @ 100 mls/hr 08/13/24 15:00 08/16/24 07:48 Flagyl 500 Mg/100 Ml IV Infused Q8H DEEPIKA Infusion Ipratropium [place] 0.5 mg 08/11/24 18:20 08/16/24 07:49 Ipratropium 0.2 Mg/Ml Neb INH 0.5 mg RTTID DEEPIKA Administration Lidocaine 1 patch 08/14/24 21:00 08/14/24 23:25 Lidocaine Patch 4% TOP 1 patch DAILY DEEPIKA Administration Ondansetron HCl 4 mg 08/08/24 13:20 08/10/24 10:54 Ondansetron Odt 4 Mg Tablet TL 4 mg Q6HR PRN Administration Nausea / Vomiting Ondansetron HCl 4 mg 08/08/24 13:20 08/12/24 20:38 Ondansetron 4 Mg/2 Ml Vial IVP 4 mg Q6HR PRN Administration Nausea / Vomiting Oxycodone HCl 5 mg 08/08/24 13:20 08/14/24 20:21 Oxycodone 5 Mg Tablet PO 5 mg Q4HR PRN Administration Pain 5 to 7 Pantoprazole Sodium 40 mg 08/09/24 07:00 08/16/24 06:19 Pantoprazole 40 Mg Tablet PO 40 mg QDAC DEEPIKA Administration Ropinirole HCl 0.5 mg 08/10/24 15:32 08/15/24 20:44 Ropinirole 0.25 Mg Tablet PO 0.5 mg 1430 PRN Administration RESTLESS LEGS Senna 8.6 - 17.2 mg 08/11/24 21:00 08/15/24 09:12 Senna 8.6 Mg Tablet PO 8.6 mg DAILY DEEPIKA Administration Sodium Chloride 10 ml 08/08/24 13:20 08/11/24 06:26 Sodium Chloride Flush 0.9% 10 Ml Syringe IVP 10 ml PRN PRN Administration NEEDED PER PROVIDER ORDERS Sodium Chloride 10 ml 08/09/24 01:00 08/15/24 22:51 Sodium Chloride Flush 0.9% 10 Ml Syringe IVP 10 ml 0100,0900,1700 DEEPIKA Administration Sodium Chloride 10 ml 08/08/24 17:09 08/13/24 06:06 Sodium Chloride Flush 0.9% 10 Ml Syringe IVP 10 ml PRN PRN Administration NEEDED PER PROVIDER ORDERS Sodium Chloride 2 sprays 08/11/24 17:52 08/15/24 11:32 Sodium Chloride 0.65% Nasal [place] CATY 2 spr Q4HR PRN Administration Nasal Congestion Tramadol HCl 50 mg 08/12/24 20:25 08/13/24 15:03 Tramadol 50 Mg Tablet PO 50 mg Q4HR PRN Administration Moderate Pain (Level 4-6) Objective Vital Signs/Intake & Output Reviewed Vital Signs: Yes Vital Signs: Vital Signs x48h Temp Pulse Pulse Resp BP Pulse Ox O2 Flow Rate 08/16/24 07:52 4 08/16/24 07:51 79 16 4 08/16/24 04:00 98.1 F 76 18 130/61 88 L 5 Intake & Output: Intake & Output 08/13/24 08/14/24 08/15/24 08/16/24 23:59 23:59 23:59 23:59 Intake Total 650 / 650 1400 / 1400 760 / 760 540 / 540 Output Total 1800 / 1800 1000 / 1000 500 / 500 250 / 250 Balance -1150 / -1150 400 / 400 260 / 260 290 / 290 Weight (kg) 63 kg 63 kg 63.5 kg 59 kg Objective General Appearance: positive No acute distress and Alert Eyes Bilateral: positive No scleral icterus ENT: positive Dry mucous membranes Neck: positive Nml inspection Respiratory: positive Chest non-tender, Rales (bibasilar crackles noted) and Other (5LPM via nasal ) Cardiovascular: positive Regular rate & rhythm, No murmur and No gallop Abdomen: positive Nml bowel sounds, Tenderness and Other (no peritoneal signs - no rigidity, guarding); negative Guarding, Rebound, Hepatomegaly, Splenomegaly or Mass Back: positive Nml inspection; negative CVA tenderness (R) or CVA tenderness (L) Skin: positive Color nml, No rash and Warm Extremities: positive Pedal edema (3+ bilaterally, up to knees) Neurologic/Psychiatric: positive Oriented x3 and Weakness Lab Results 08/16/24 04:03 08/16/24 04:03 Other Labs: Lab Results x24hrs 08/16/24 Range/Units 04:03 WBC 13.1 H (4.8-10.8) x10^3/uL RBC 4.38 (4.20-5.40) 10^6/uL Hgb 12.5 (12.0-16.0) g/dL Hct 39.9 (37.0-47.0) % MCV 91.1 (81.0-99.0) fL MCH 28.5 (27.0-31.0) pg MCHC 31.3 L (32.0-36.0) g/dL RDW 16.0 H (12.0-15.0) % Plt Count 257 (130-450) 10^3/uL MPV 10.1 (7.9-10.8) fL Sodium 136 (135-145) mmol/L Potassium 3.6 (3.5-4.5) mmol/L Chloride 96 L (101-111) mmol/L Carbon Dioxide 36 H (21-32) mmol/L Anion Gap 4.0 L (6-13) BUN 13 (6-20) mg/dL Creatinine 0.5 L (0.6-1.3) mg/dL Estimated GFR (MDRD) 120 (>89) Glucose 94 (74-104) mg/dL Calcium 8.3 L (8.5-10.3) mg/dL Magnesium 1.8 (1.7-2.3) mg/dL ABX Reporting Has patient been on IV antibiotics over the past 48 hours?: No Assessment/Plan Problem List (1) Acute respiratory failure with hypoxia and hypercarbia: Impression: Patient has longstanding history of COPD, although she has not required oxygen at home. Echo was completed which shows right ventricle is severely dilated, and right ventricular systolic function is severely decreased. Moderate tricuspid regurgitation is present. She also has severe pulmonary hypertension. She will be discharged home on oxygen. Will complete oxygen desaturation study tomorrow. CTA was also completed on admission, 08/08this showed no pulmonary embolism, however did show pleural effusions, cardiomegaly, as well as diffuse underlying emphysematous changes. She is likely going to need lifelong oxygen support at home. Will wean down as tolerated. Now on 4 L via nasal cannula. (2) CHF (congestive heart failure): Impression: Patient presented with crackles on exam, BiPAP use. CTA shows bilateral pleural effusions. Received a few days of IV Lasix. She had good urine output. Still has some minor crackles at the bases of her lungs, and nonpitting pedal edema bilaterally. Continue oral Lasix at this time. Patient does have a metabolic alkalosis, likely from overdiuresis, which is improving. Qualifiers: Heart failure chronicity: acute Heart failure type: unspecified Q ualified Code(s): I50.9 - Heart failure, unspecified (3) UTI (urinary tract infection): Impression: On 08/13, her white count jumped from 7 to 23. Urinalysis was positive for infection with patient endorsing some suprapubic tenderness with palpation as well. IV Rocephin was started, today is day 4 antibiotics. Qualifiers: Hematuria presence: without hematuria Urinary tract infection type: s ite unspecified Qualified Code(s): N39.0 - Urinary tract infection, site not specified (4) Abdominal pain: Impression: Over the last few days, patient had steadily increasing abdominal pain. Abdominal x-ray showed prominent loops of small bowel, adynamic ileus versus small bowel obstruction. This was followed by abdominal/pelvis CT which revealed findings of colitis in the mid colon, rectal stool impaction, as well as enteritis versus ileus. Initially, patient was having loose stools, diarrhea, likely overflow diarrhea. Stool studies are ordered, C. difficile is also ordered. These were cancelled as patient's stool became formed and ultimately stopped. General Surgery was consulted, more for the ileus versus SBO. Patient has no peritoneal signs, she is now passing gas, having bowel movements, no nausea or vomiting, tolerating p.o. intake well. They have signed off at this time. Will reconsult as needed. For the colitis, Flagyl was initiated. Continued at this time. Qualifiers: Abdominal location: unspecified location Qualified Code(s): R10.9 - Unspecified abdominal pain (5) COPD (chronic obstructive pulmonary disease): Impression: Patient with over 100 year smoking history. Still smoking about 5 cigarettes a day. Continue Atrovent RT 3 times daily. Patient not actively wheezy at this time. CTA shows diffuse emphysematous changes. Echo revealed severe pulmonary hypertension. Patient will likely need oxygen on discharge. Multiple conversations about long-term goals of care, hospice. Patient declines at this time. Qualifiers: COPD type: unspecified COPD Qualified Code(s): J44.9 - Chronic obstructive pulmonary disease, unspecified
[2024-08-16] MEDS: FLUTICASONE NASAL SPRAY NAS SCH (11:45)
[2024-08-16] MEDS: COD LIVER OIL/ZINC OXIDE 113 GM TUBE TOP PRN (14:39)
[2024-08-16] MEDS: polyethylene glycoL 3350 17 GM PACKET PO SCH (17:27)
[2024-08-16] MEDS: SENNA 8.6 MG TABLET PO SCH (17:34)
[2024-08-17 05:06] LABS: HCT - HEMATOCRIT 42.7 % (37.0-47.0); HGB - HEMOGLOBIN 13.5 g/dL (12.0-16.0); MEAN CORPUSCULAR HEMOGLOBIN 28.5 pg (27.0-31.0); MEAN CORPUSCULAR HGB CONC 31.6 g/dL (32.0-36.0); MEAN CORPUSCULAR VOLUME 90.3 fL (81.0-99.0); MEAN PLATELET VOLUME 9.9 fL (7.9-10.8); RED BLOOD COUNT 4.73 10^6/uL (4.20-5.40); RED CELL DISTRIBUTION WIDTH 16.1 % (12.0-15.0); WHITE BLOOD COUNT 10.1 x10^3/uL (4.8-10.8)
[2024-08-17 05:14] LABS: MAGNESIUM 1.7 mg/dL (1.7-2.3)
[2024-08-17 05:20] LABS: CALCIUM 8.3 mg/dL (8.5-10.3); CREATININE 0.6 mg/dL (0.6-1.3); POTASSIUM 3.6 mmol/L (3.5-4.5)
[2024-08-17 07:43] VITALS: BP 147/73; TEMP 97.9; O2SAT 94
--- NOTE | 2024-08-17 08:07 | Discharge Summary ---
"Discharge Summary Admit Date: 08/08/24 Discharge Date: 08/17/24 Discharging Provider: Dr. Reji Morin Primary Care Provider: PORTER Felder Code Status: Do Not Attempt Resuscitation Discharge Facility Name: Home with Home Health DIAGNOSES Admission Diagnoses: Acute respiratory failure with hypoxia and hypercarbiapatient with longstanding history of COPD, current tobacco use. Echo completed shows right-sided heart failure, severe pulmonary hypertension. CTA shows diffuse emphysematous changes. Patient will be started on chronic azithromycin therapy 250 mg daily. She is advised to continue her inhalers, follow-up with pulmonology in the outpatient setting. She will be discharged home on 4 to 5 L of oxygen at rest and with activity. Congestive heart failurecontinue oral Lasix on discharge. Urinary tract infectioncompleted 5 days of IV antibiotics with Rocephin. Abdominal painresolved. CT did show some colitis, constipation. Patient has had regular, soft bowel movements while here since then. Completed 5-day course of IV Flagyl. COPDsee above. We also had multiple goals of care conversation, and patient adamant about refusing palliative care or hospice care at this time. Discharge Diagnoses with Status of Each Condition: Acute respiratory failure with hypoxia and hypercarbia COPD exacerbation CHF HPI History of Present Illness: Per Dr. eGorge: This is a pleasant 79 year old female with PMHx of COPD and >100 pack year history who presents for admission due to COPD exacerbation and new onset CHF. Patient reports she has been having worsening SOB and LE swelling in the last month, worse in the last night, prompting her to present to the ED. States she had about 3 days of a low grade fever last month, which resolved. Denies weight loss, noting weight gain in the last few days. Denies night sweats, chills. Reports difficulty walking due to leg swelling. States she has a chronic cough, which has been worse the last month. Reports sputum production, which is clear. Denies any changes in SOB with position but worse with exertion such as talking. States she lives with , denies recent sick contacts. Denies rash, new bruising. States she has been feeling bloated the last month but denies any ABD pain, N/V, changes in bowel habits. States she has been smoking less than half pack per day the last 3-4 years, down from 2 PPD since age 22 years old. Reports alcohol cessation 11 years ago, admitting to alcohol abuse since age 21. Denies recent travel, history of hepatitis infection. Denies chest pain, heart palpitations. Denies new confusion or changes in mentation. Only taking Diltiazem 240mg ER QD at home. Denies any rescue inhalers, LABAs, home O2, or home nebulizer treatments. Patient was given duoneb and 125mg IV solu-medrol by EMS with improvement from 80% to 93% Pulse Ox RA. She was then placed on 15 l/min NRB but changed to BiPAP due to decreasing pulse ox. She was transitioned to Oxymizer at 9L once she had stabilization of O2 to 88%. Patient given IV Lasix with improvement in LE swelling and continues on nebulizer treatments. CONSULTS | PROCEDURES Consultations: Social work, PT, OT Procedures: Chest x-rayright greater than left small bilateral effusions with subadjacent atelectasis08/08. CTAnegative for pulmonary embolism, pleural effusions, underlying emphysematous changes. Enlarged pulmonary arteries.08/08 Abdominal ultrasoundmildly heterogeneous appearance of liver with suspected surface nodularity, early cirrhotic changes, trace upper abdominal ascites.08/10 Chest x-ray6/5stable small to moderate bilateral pleural effusions. Abdominal x-ray6/5prominent loops of small bowel, adynamic ileus versus small bowel obstruction. Abdominal/pelvis CTs6/5colitis involving long segment mid colon, large upstream fecal loading, large rectal stool ball. Echo6/3right ventricle is severely dilated, systolic function is severely decreased, severe pulmonary hypertension, moderate tricuspid regurgitation. HOSPITAL COURSE Hospital Course: Patient is a 79-year-old female with a history of longstanding COPD who presented with acute hypoxic respiratory failure. For her dyspnea initially, she was started on BiPAP, scheduled DuoNebs, as well as diuresis. CT was completed which showed bilateral pleural effusions, enlarged pulmonary arteries. This was followed by an echo which showed right ventricular failure, as well as severe pulmonary hypertension. Patient was weaned off the BiPAP, and remains on 4 to 5 L, which she will continue at home. She received a course of antibiotics for community-acquired pneumonia. During her stay, she developed abdominal pain. Initial abdominal x-ray showed adynamic ileus versus obstruction. This was followed by a CT which showed some colitis versus fecal stool loading. She received IV antibiotics for possible infectious colitis. She was also found to have a urinary tract infection, for which she received 5 days of IV antibiotics. Her white count has now resolved. PT/OT did evaluate the patient, and recommended SNF, however patient is insistent on going home. Home health care was set up for her, as well as home oxygen. Patient was deemed suitable for discharge home. She will need extensive and close follow-up with primary care provider, pulmonology, etc. on discharge. ALLERGIES Allergies Allergy/AdvReac Type Severity Reaction Status Date / Time coconut Allergy Anaphylaxis Verified 08/08/24 07:49 celecoxib (From Celebrex) AdvReac Severe Nausea Verified 08/08/24 06:25 felodipine AdvReac Severe Jittery, Verified 08/08/24 06:25 DIZZINESS, RESTLES LEG SYNDROM Antihistamines - Alkylamine AdvReac JITTERY Verified 08/08/24 07:49 MEDICATIONS Ambulatory Orders Medication Instructions Recorded Confirmed diltiazem HCl 240 mg See Rx Instructions .Route 0 06/09/24 08/08/24 capsule,extended release 24 hr .COMPLEX #90 caps umeclidinium 62.5 mcg/actuation 1 inh PO DAILY #90 ea 06/13/24 08/08/24 blister powder for inhalation (Incruse Ellipta) aspirin 81 mg tablet,delayed 81 mg PO DAILY 08/08/24 0 08/08/24 release (Adult Aspirin Regimen) diclofenac potassium 50 mg tablet 50 mg PO BID PRN kandi n 08/08/24 08/08/24 diphenhydramine HCl 25 mg capsule 25 mg PO HS PRN inso mnia 08/08/24 08/08/24 (Benadryl) azithromycin 250 mg tablet 250 mg PO DAILY #30 tabs fluticasone propionate 50 1 spray intranasal DAILY #16 grams 08/17/24 mcg/actuation nasal spray,suspension furosemide 40 mg tablet 40 mg PO DAILY #30 tabs 12/03 omeprazole 20 mg capsule,delayed 20 mg PO DAILY #30 ca ps 08/17/24 08/08/24 release ropinirole 0.25 mg tablet 0.25 mg PO .COMPLEX #30 tabs 08/17/24 08/08/24 PHYSICAL EXAM AT DISCHARGE Vital Signs: Vital Signs x48h Temp Pulse Pulse Resp BP Pulse Ox O2 Flow Rate 08/17/24 08:53 4 08/17/24 08:53 79 18 4 08/17/24 07:42 97.9 F 74 20 147/73 H 94 4 General Appearance: positive No acute distress and Alert; negative Anxious Eyes Bilateral: positive Normal inspection, PERRL and EOMI ENT: positive ENT inspection nml, Pharynx nml and No signs of dehydration Neck: positive Nml inspection, Thyroid nml and No JVD Respiratory: positive Chest non-tender, No respiratory distress, Breath sounds nml and Rales (mild, bibasilar) Cardiovascular: positive Regular rate & rhythm, No murmur and No gallop Peripheral Pulses: positive 2+ Abdomen: positive Non-tender, No organomegaly, Nml bowel sounds and No distention Back: positive Nml inspection; negative CVA tenderness (R) or CVA tenderness (L) Skin: positive Color nml, No rash, Warm and Dry Extremities: positive Non-tender, Full ROM, Nml appearance and Pedal edema (trace, minimal, improved) Neurologic/Psychiatric: positive Oriented x3 and Motor nml LABS 08/17/24 04:25 08/17/24 04:25 DIAGNOSTIC IMAGING Diagnostic Imaging Results: Final report reviewed FOLLOW UP Follow Up: Follow up with 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 TIME SPENT Time Spent in Discharge (Minutes): 35 Discharge Plan Discharge Patient Disposition: 06 Home Health Service Condition: Fair Prescriptions: New azithromycin 250 mg Tablet 250 mg PO DAILY Qty: 30 0RF Rx Instructions: chronic suppression therapy fluticasone propionate 50 mcg/actuation [place],Suspension 1 spray intranasal DAILY Qty: 16 0RF furosemide 40 mg Tablet 40 mg PO DAILY Qty: 30 0RF Continued diltiazem HCl 240 mg capsule,extended release 24hr See Rx Instructions .ROUTE .COMPLEX Qty: 90 0RF Dose Instruction: TAKE 1 CAPSULE DAILY FOR HIGH BLOOD PRESSURE Rx Instructions: TAKE 1 CAPSULE DAILY FOR HIGH BLOOD PRESSURE Incruse Ellipta 62.5 mcg/actuation blister with device 1 inh PO DAILY Qty: 90 3RF diphenhydramine HCl [Benadryl] 25 mg capsule 25 mg PO HS PRN (Reason: insomnia) aspirin [Adult Aspirin Regimen] 81 mg tablet,delayed release (DR/EC) 81 mg PO DAILY diclofenac potassium 50 mg tablet 50 mg PO BID PRN (Reason: pain) Patient Comments: TAKE 1 TABLET BY MOUTH TWICE DAILY WITH A MEAL NEEDED FOR NECK PAIN ropinirole 0.25 mg tablet 0.25 mg PO .COMPLEX Qty: 30 0RF Rx Instructions: ; TAKE 1 TABLET BY MOUTH EVERY 2 HRS BEFORE BEDTIMEE FOR RESTLESS LEGS omeprazole 20 mg capsule,delayed release(DR/EC) 20 mg PO DAILY Qty: 30 0RF Patient Comments: TAKE 1 CAPSULE BY MOUTH EVERY DAY Activity Restrictions: Activity as Tolerated Diet: Regular Health Concerns: You came in because you were feeling very short of breath. You have a known history of COPD, and were still smoking when you first got here. We started you on inhaled steroids, breathing treatments [id number] to help with this. You also had some fluid in your lungs, which we started you on a water pill for. You will continue this on discharge. When we completed imaging of your lungs, as well as the ultrasound of your heart, this revealed that you have pulmonary hypertension, as well as severe lung disease. We talked about your overall goals of care, and you want to continue with medical management at this time. As such, we will be sending you home with oxygen that you will require at rest and with activity. Please continue to use your inhalers as prescribed. We also started you on azithromycin, an antibiotic, which you will take daily as suppressive therapy. You need to follow-up with a intermodal truck driver in the outpatient setting. While you are here, you also had some abdominal pain, which we did a CT scan for. It showed inflammation of your colon, which she received 5 days of antibiotics for. You are now having regular bowel movements. He also had a urinary tract infection, which was appropriately treated. Overall, you are feeling better, which is great to see. We will set up home health for you. Please continue to follow-up closely with your primary care provider. I know you just canceled your appointment on Saturday, but please see them in the next 1 to 2 weeks. Thanks for letting us help take care of you. Print Language: Vietnamese Patient Instructions: COPD Quit Smoking, Pulmonary Hypertension Stand Alone Forms: PCP List Follow-up Care: Eleanor De La Vega ARNP [Primary Care Provider] -"
[2024-08-17] MEDS ORDERED: polyethylene glycoL 3350 17 GM PACKET PO SCH (09:00)
[2024-08-17] MEDS: BISACODYL 10 MG SUPP PR ONE (09:47)
[2024-08-17] MEDS: LACTULOSE 10 GM /15 ML UDC PO SCH (10:26)
[2024-08-17] MEDS: SOAP SUDS ENEMA 1 EACH RC ONE (10:26)
== END 2024-08-17 13:10 | disposition home health service (06) | DRG 189 ==
LOC: ED 06:08 → MS2 13:12 → ICU 16:50 → MS2 08-15 10:18
PROVIDERS: ADMIT Specialist; ATTEND Specialist
DX: I73.9 Peripheral vascular disease, unspecified; I50.9 Heart failure, unspecified; K21.9 Gastro-esophageal reflux disease without esophagitis; K59.00 Constipation, unspecified; K52.9 Noninfective gastroenteritis and colitis, unspecified; J44.1 Chronic obstructive pulmonary disease with (acute) exacerbation; J84.10 Pulmonary fibrosis, unspecified; I11.0 Hypertensive heart disease with heart failure; Z66 Do not resuscitate; N39.0 Urinary tract infection, site not specified; J96.02 Acute respiratory failure with hypercapnia; I27.20 Pulmonary hypertension, unspecified; J18.9 Pneumonia, unspecified organism; R53.1 Weakness; I25.10 Atherosclerotic heart disease of native coronary artery without angina pectoris; I50.811 Acute right heart failure; J90 Pleural effusion, not elsewhere classified; G25.81 Restless legs syndrome; R09.02 Hypoxemia; J44.0 Chronic obstructive pulmonary disease with (acute) lower respiratory infection; F10.11 Alcohol abuse, in remission; J96.01 Acute respiratory failure with hypoxia; F17.210 Nicotine dependence, cigarettes, uncomplicated